=== PATIENT | male | born 1955 | race Caucasian/White ===

== ENCOUNTER 2018-11-11 01:00 | Inpatient (IN) | payer MEDICARE, SELFPAY ==
[2018-11-11] VITALS (44 sets, daily range): BP systolic 82–161; BP diastolic 56–102; PULSE 72–129; RESP 9–30; TEMP 36.5–37.3; O2SAT 92–100; BMI 21.7; BMI 21.4; BMI 21.5
[2018-11-11] MEDS: Ipratropium/Albuterol Sulfate 3 ML AMPUL.NEB INHALATION ×6 (01:10→23:01)
--- NOTE | 2018-11-11 01:15 | EKG12_ITS ---
Test Reason : SOB Blood Pressure : / mmHG Vent. Rate : 118 BPM Atrial Rate : 118 BPM P-R Int : 118 ms QRS Dur : 068 ms QT Int : 310 ms P-R-T Axes : 076 -65 061 degrees QTc Int : 434 ms Sinus tachycardia Left axis deviation Nonspecific ST abnormality Abnormal ECG Confirmed by ELGIN GARCIA, LAW ([id number]), editor greeting card RAYRAY MAO ([id number]) on 11/12/2018 12:51:53 PM Referred By: MILY Confirmed By:LAW EISENBERG MD
--- NOTE | 2018-11-11 01:16 | RAD_ITS ---
STUDY: X-RAY CHEST REASON FOR EXAM: Male, 63 years old. Dyspnea TECHNIQUE: Single AP portable view of the chest. COMPARISON: None. FINDINGS: There is hyperinflation of the lungs consistent with chronic obstructive lung disease (COPD). There is no demonstrated pleural abnormality. Normal size heart. Normal mediastinum and guru. Normal visualized pulmonary arteries. Normal visualized aortic arch and descending thoracic aorta. Normal visualized thoracic spine. Normal visualized ribs, clavicles, and shoulders. There is no demonstrated abnormality of the visualized soft tissue structures of the upper abdomen. RAD/Chest 1 View (Portable) IMPRESSION: There is hyperinflation of the lungs consistent with chronic obstructive lung disease (COPD). Electronically Signed: Lizzy Roy, at 2:45 EDT Tel , Service support ,
[2018-11-11] MEDS: Albuterol 2.5 MG/3 ML VIAL.NEB. INHALATION ×3 (01:20→01:42)
[2018-11-11] MEDS: MethylPREDNISolone 125 MG/2 ML Vial IV (01:26)
[2018-11-11 01:32] LABS: Absolute Lymphocyte Count 0.69 X10^3/ul (0.83-4.51); Absolute Neutrophil Count 8.5 X10^3/uL (2.0-7.7); Basophil# 0.05 X10^3/uL; Basophil% 0.5 % (0-1); Eosinophil# 0.05 X10^3/uL; Eosinophils% 0.5 % (0-5); Hematocrit 49.5 % (40-54); Hemoglobin 16.2 g/dl (13.0-16.5); Lymphocyte # 0.69 X10^3/ul (4.0); Lymphocyte % 6.8 % (19-41); Mean Corp Hgb Conc 32.7 g/gl (32-36); Mean Corpuscular Hgb 31.2 pg (27.0-32.0); Mean Corpuscular Volume 95.2 fL (80-94); Mean Platelet Vol. 9.1 fl (6.2-12.0); Monocyte% 7.9 % (0-10); Neutrophil # 8.52 X10^3/uL (2.7-7.7); Neutrophil % 84.2 % (47-70); POSITIVE COUNT NO; POSITIVE DIFFERENTIAL NO; POSITIVE MORPHOLOGY NO; Platelet Count 220 K/mm3 (150-450); White Blood Count 10.1 K/mm3 (4.4-11.0)
[2018-11-11 01:44] LABS: Anion Gap 3 (5-15); BUN 20 mg/dL (7-18); Calcium,Total 8.4 mg/dL (8.5-10.1); Chloride 106 mmol/L (98-107); Creatinine, Serum 1.11 mg/dL (0.70-1.30); EST Glomerular Filtration Rate 72 mL/min (>60); Est Glom Filt Rate - Afr Amer 87 mL/min (>60); Estimated Creatinine Clearance 71.74 ml/min; Glucose 86 mg/dL (74-106); Potassium 4.5 mmol/L (3.5-5.1); Sodium Level 143 mmol/L (136-145)
[2018-11-11 01:56] LABS: Allen Test POS; Base Excess 3 mmol/L (-2 to +2); Bicarbonate 29.6 mmol/L (22-26); Blood Gas Specimen Type ART; O2 Delivery Device Nasal Can; PO2 101 mmHG (75-100); SITE L Radial; SO2 97 % (95-99); Time Given 145; Total Carbon Dioxide 31 mmol/L; pCO2 57.5 mmHg (35-45); pH 7.32 (7.35-7.45)
--- NOTE | 2018-11-11 02:01 | ED.RN ---
LAB CALLED TO REPORT LACTIC ACID LEVEL OF 2.2. DR. MINOR NOTIFIED.
[2018-11-11 02:02] LABS: Lactic Acid 2.2 mmol/L (0.4-2.0)
--- NOTE | 2018-11-11 03:20 | PCM.HP.STD ---
Problem List (1) Acute hypoxemic respiratory failure Status: Acute (2) Seizure disorder Status: Chronic (3) COPD (chronic obstructive pulmonary disease) Status: Chronic (4) Chronic hypercapnic respiratory failure Status: Chronic History of Present Illness Date of Admission: 11/11/18 Chief Complaint: shortness of breath The patient is a 63 year old M is a significant history of seizure disorder and COPD without home oxygen use who presented to the emergency department with 3-day history of progressively worsening shortness of breath. Associated with his symptoms is dry cough and wheezing. At the emergency department because patient's oxygen saturation was in the 70s; and because of respiratory distress he was placed on BiPAP. Patient was brought to emergency department by the paramedics. Past Medical History Past Medical History (Chronic Problems): Chronic Problems Chronic hypercapnic respiratory failure (Chronic) Hypertension (Chronic) Seizure disorder (Chronic) Hyperlipidemia (Chronic) COPD (chronic obstructive pulmonary disease) (Chronic) Allergies codeine Adverse Reaction (Verified 11/11/18 01:06) Nausea Home Medications: Ambulatory Orders Medication Instructions Recorded Phenytoin Na [Dilantin] 200 mg PO BID 07/24/15 Albuterol Aerosols [Ventolin 2.5 mg INHALATION Q2H PRN PRN #1 07/25/15 Aerosols] box Albuterol Inhaler [Ventolin Hfa 1 - 2 puff INHALATION Q4H PRN PRN 07/25/15 (SP)] #1 inhaler Nebulizer [Lc Star] 1 each UD #1 kit 07/25/15 levoFLOXacin tablet [Levaquin] 750 mg PO DAILY #4 tablet 11/28/16 Fluticasone/Salmeterol [Advair 1 puff INHALATION BID 11/11/18 250/50 Mcg Diskus] Ipratropium/Albuterol Sulfate 3 ml INHALATION [id number] 11/11/18 [Duoneb] Tiotropium [place] [Spiriva 18 MCG] 1 puff INHALATION DAILY 11/11/18 predniSONE tablet 60 mg PO DAILY@0800 11/11/18 Surgical History: - - R sided chest tube placed for history of PTX. Psychiatric History: No pertinent psych hx Smoking Status: Current every day smoker - *Family History Maternal History Items: - - reports a lot of cancer Paternal History Items: - - heart disease Review of Systems Constitutional: Reports: Chills HEENT: Denies: Head Aches, Sinus Congestion, Sinus Drainage Cardiovascular: Denies: Chest Pain Respiratory: Reports: Cough, Shortness of Breath Gastrointestinal: Denies: Abdominal Pain, Nausea, Vomiting Genitourinary: Denies: Dysuria Musculoskeletal: Denies: Joint Pain, Joint Tenderness Skin: Denies: Rash, Wounds Neurological: Denies: Numbness, Tingling, Focal weakness Psychiatric: Denies: Depression, Homicidal Ideations, Suicidal Ideations Hematologic/ Lymphatic: Denies: Easy Bruising, Easy Bleeding VTE Information - Inpt Only VTE Present on Admission: No VTE Mechan Device Prophylaxis: None VTE Pharm Prophylaxis ordered?: Yes Patient Problems: Active and Suspected Problems Acute hypoxemic respiratory failure (Acute) - Physical Exam General: Alert, Oriented x3, Cooperative HEENT: Atraumatic, PERRLA, EOMI, Normocephalic Neck: Supple, No JVD, Negative Carotid Bruits Lungs: Diminished, Tachypneic, Using Accessory Muscles, Wheezes Cardiovascular: Normal S1, Normal S2, No murmurs, Tachycardic Abdomen: Bowel Sounds Present, Soft, Non Tender Extremities: No edema, Capillary Refill Less than 3 Seconds Skin: No rashes, No breakdown, - - Mottled bilateral feet Musculoskeletal: No Tenderness to Palpation of Joints or Extremities Neurological: Neuro grossly intact Psych/Mental Status: Anxious Vital Signs Temp Pulse Resp BP Pulse Ox 99.1 F 104 H 22 H 118/88 H 96 11/11/18 03:15 11/11/18 03:15 11/11/18 03:15 11/11/18 03:15 11/11/18 02:12 Oxygen Flow Rate (L/min) 5 Oxygen Delivery Method Bi-pap Weight: 72.575 kg Body Mass Index (BMI) 21.7 Microbiology Past 72 Hours 11/11/18 01:33 Influenza Types A,B Direct FA (ANTONI) - Final Mucosa - Nasopharyngeal Laboratory Tests Past 24 Hrs 11/11/18 11/11/18 11/11/18 01:15 01:15 01:15 WBC 10.1 RBC 5.20 Hgb 16.2 Hct 49.5 MCV 95.2 H MCH 31.2 MCHC 32.7 RDW 14.0 RDW Differential 48.0 H Plt Count 220 MPV 9.1 Immature Gran % (Auto) 0.100 Neut % (Auto) 84.2 H Lymph % (Auto) 6.8 L Dickens % (Auto) 7.9 Eos % (Auto) 0.5 Baso % (Auto) 0.5 Absolute Neuts (auto) 8.5 H Absolute Lymphs (auto) 0.69 L Total Counted Not Reportable Specimen Type Sample Site pH Bicarbonate Actual POC Total CO2 Base Excess O2 Saturation ABG pCO2 ABG pO2 Chuck Test O2 Delivery Device Liter Flow Blood Gas Notified Whom Blood Gas Notified Time Sodium 143 Potassium 4.5 Chloride 106 Carbon Dioxide 34.0 H Anion Gap 3 L BUN 20 H Creatinine 1.11 Estim Creat Clear Calc 71.74 Est GFR (MDRD) Af Amer 87 Est GFR (MDRD) Non-Af 72 BUN/Creatinine Ratio 18.0 Glucose 86 Lactic Acid 2.2 H Calcium 8.4 L Troponin I 0.069 H 11/11/18 01:48 WBC RBC Hgb Hct MCV MCH MCHC RDW RDW Differential Plt Count MPV Immature Gran % (Auto) Neut % (Auto) Lymph % (Auto) Dickens % (Auto) Eos % (Auto) Baso % (Auto) Absolute Neuts (auto) Absolute Lymphs (auto) Total Counted Specimen Type ART Sample Site L Radial pH 7.32 L Bicarbonate Actual 29.6 H POC Total CO2 31 Base Excess 3 H O2 Saturation 97 ABG pCO2 57.5 H ABG pO2 101 H Chuck Test POS O2 Delivery Device Nasal Can Liter Flow 5.0 Blood Gas Notified Whom ED MD Blood Gas Notified Time 145 Sodium Potassium Chloride Carbon Dioxide Anion Gap BUN Creatinine Estim Creat Clear Calc Est GFR (MDRD) Af Amer Est GFR (MDRD) Non-Af BUN/Creatinine Ratio Glucose Lactic Acid Calcium Troponin I Assessment/Plan All Active Problems Acute hypoxemic respiratory failure (Acute) COPD with acute exacerbation (Acute) The patient is a 63 year old M is a significant history of seizure disorder and COPD without home oxygen use who presented to the emergency department with 3-day history of progressively worsening shortness of breath; cough and wheezing found to be severely hypoxic requiring BiPAP placement at the emergency department. Acute COPD exacerbation Patient was placed on a BiPAP from the ED. We will continue BiPAP and will admit patient to the intensive care unit. Rapid influenza screen was negative. We will get a comprehensive respiratory pathogen panel. Because of the severity of his COPD and because of reported chills we will start patient on azithromycin. Patient meets sepsis criteria with tachycardia and leukopenia. However most probably his symptoms is from COPD exacerbation. Chest x-ray independently reviewed confirms hyperinflation consistent with COPD without any acute cardiopulmonary process. Scheduled DuoNeb and as needed albuterol ordered When off BiPAP can consider Mucinex. Auto Wash Buffer consult. Acute hypoxemic respiratory failure with hypercapnia. Emergency department doctor reported that on presentation his oxygen saturation on room air was in the 70s. And after putting patient on BiPAP his PO2 increased to 101. Also remarkably on BiPAP his PCO2 was 57.5. His bicarbonate on BMP was 34 showing chronic hypercapnia. Elevated troponin: On presentation his troponin was 0.69 Likely due to demand ischemia. Trend troponin. Lactic acidosis Presentation his lactic acid was 2.2 Likely due to hypoxemia from COPD exacerbation Seizure disorder: Dilantin continued DVT Prophylaxis Subcutaneous Lovenox CODE STATUS: Patient is a DNR CCA with no CPR but is okay to do intubation before arrest. Code Visit Inpatient E&M: 97813 Init Hosp L3
--- NOTE | 2018-11-11 03:42 | ED.VISSUMM ---
- ER Visit Summary Date of Service: 11/11/18 Chief Complaint: COPD flare History of Present Illness: The patient is a 63 M smoker with a history of COPD but not on home oxygen presents with several days of upper respiratory symptoms, wheezing, and shortness of breath. No chest pain or lower extremity pain/swelling. No history of DVT or PE. No history of cardiac issues. He states that this feels like his typical COPD exacerbation. His pulse ox was in the 70s on EMS arrival this morning. He initially tried to refuse transport and EMS state on scene giving him breathing treatments and oxygen but he was still requiring oxygen and the paramedics were able to convince him to come here. Physical Examination: He is in severe distress on arrival. He has diffuse wheezing and is using accessory muscles to breathe. He has no clinical evidence of DVT and no lower extremity edema. Neurologic exam is normal. He is somewhat agitated and initially trying to refuse treatment and using profane language with the nursing staff but after he was placed on BiPAP, he became more calm and cooperative. Neurologic exam is normal. No focal or lateralizing findings. Test Results: Lactic acid 2.2. Troponin indeterminate at 0.06 but he has no chest pain at all. No clinical evidence of DVT and really no chest pain, chest tightness and wheezing. He states that this feels like his usual COPD flareup but much worse than his most recent. Emergency Department Course and Treatment: Blood cultures were sent. Chest x-ray negative for infiltrate. He was given aspirin and Solu-Medrol as well as multiple breathing treatments. He was placed on BiPAP. Blood gas was obtained. He was unable to be weaned from the BiPAP but does look much better. Does not appear to require intubation but I do not feel we can wean him at this time. Is no clinical evidence of DVT. He does have an indeterminate troponin but no chest pain and EKG is unremarkable. I considered pulmonary embolism however, he had significant wheezing and infection type symptoms so I think this is much less likely. He will be admitted to the ICU. Treatment Plan: Admit to ICU. Disposition: Full admission Impression: Initial encounter acute COPD exacerbation, initial encounter respiratory failure Critical care time 40 minutes. This note was generated with [employer] dictation software. It may contain incorrect words, spelling, and punctuation that were not noted in review of the chart prior to signing ED Disposition - Plan for ED Patient: Referrals: Tho Steen MD [Primary Care Provider] -
--- NOTE | 2018-11-11 03:46 | ED.RN ---
DR. BOSTON IS NOT ORDERING ATB AT THIS TIME.
--- NOTE | 2018-11-11 03:47 | ED.DCSUM_ITS ---
- ER Visit Summary Date of Service: 11/11/18 Chief Complaint: COPD flare History of Present Illness: The patient is a 63 M smoker with a history of COPD but not on home oxygen presents with several days of upper respiratory symptoms, wheezing, and shortness of breath. No chest pain or lower extremity pain/ swelling. No history of DVT or PE. No history of cardiac issues. He states that this feels like his typical COPD exacerbation. His pulse ox was in the 70s on EMS arrival this morning. He initially tried to refuse transport and EMS state on scene giving him breathing treatments and oxygen but he was still requiring oxygen and the paramedics were able to convince him to come here. Physical Examination: He is in severe distress on arrival. He has diffuse wheezing and is using accessory muscles to breathe. He has no clinical evidence of DVT and no lower extremity edema. Neurologic exam is normal. He is somewhat agitated and initially trying to refuse treatment and using profane language with the nursing staff but after he was placed on BiPAP, he became more calm and cooperative. Neurologic exam is normal. No focal or lateralizing findings. Test Results: Lactic acid 2.2. Troponin indeterminate at 0.06 but he has no chest pain at all. No clinical evidence of DVT and really no chest pain, chest tightness and wheezing. He states that this feels like his usual COPD flareup but much worse than his most recent. Emergency Department Course and Treatment: Blood cultures were sent. Chest x- ray negative for infiltrate. He was given aspirin and Solu-Medrol as well as multiple breathing treatments. He was placed on BiPAP. Blood gas was obtained. He was unable to be weaned from the BiPAP but does look much better. Does not appear to require intubation but I do not feel we can wean him at this time. Is no clinical evidence of DVT. He does have an indeterminate troponin but no chest pain and EKG is unremarkable. I considered pulmonary embolism however, he had significant wheezing and infection type symptoms so I think this is much less likely. He will be admitted to the ICU. Treatment Plan: Admit to ICU. Disposition: Full admission Impression: Initial encounter acute COPD exacerbation, initial encounter respiratory failure Critical care time 40 minutes. This note was generated with [employer] dictation software. It may contain incorrect words, spelling, and punctuation that were not noted in review of the chart prior to signing ED Disposition - Plan for ED Patient: Referrals: Tho Steen MD [Primary Care Provider] -
[2018-11-11] MEDS: Aspirin 81 MG TAB.CHEW 162 MG PO (04:25)
[2018-11-11 05:24] LABS: Reflex Lactate? Y
[2018-11-11] MEDS: 0.9% NaCl Peripheral Flush Adult/Peds IV ×3 (05:53→21:00)
[2018-11-11] MEDS: 0.9% NaCl IVPB Med Flush (250 mL) 15 ML IV (05:53)
[2018-11-11 06:25] LABS: Lactic Acid 1.1 mmol/L (0.4-2.0)
--- NOTE | 2018-11-11 06:43 | PCM.CON.CC ---
Reason for Consult Date of Consultation: 11/11/18 Reason for Consultation: COPD exacerbation History of Present Illness: The patient is a 63-year-old male, with a history as outlined below, who presented to the emergency department on November 11 with complaints of shortness of breath, wheezing and hypoxia. The patient does have an extensive smoking history of approximately 50 pack years, but states that more recently he is only smoking 3-4 cigarettes daily. He states that he is currently utilizing a combination of Combivent, Ventolin and Advair in his home environment. He does report the presence of wheezing along with a cough, but states that he has been unable to expectorate any sputum. The patient does not have a baseline supplemental oxygen requirement. He does report that he recently underwent pulmonary function testing and a walking oximetry study through the [facility]. He does not recall ever having been evaluated by a motor coach chauffeur previously. On presentation to the emergency department, the patient was noted to be afebrile, tachycardic and tachypneic. Laboratory evaluation revealed no evidence of a leukocytosis. Arterial blood gas on 5 L/min revealed a pH of 7.32 with a PCO2 of 57 and PO2 of 101. Chemistry profile was significant for an elevated bicarbonate of 34. Lactate was mildly elevated to 2.2. Initial troponin was increased to 0.069. Plain film chest x-ray revealed hyperinflated lung weinberg without acute cardiopulmonary process. The patient received aerosol treatments along with IV steroids. He was placed on BiPAP therapy and subsequently admitted to the medical intensive care unit for ongoing management. OUTSIDE MEDICAL RECORDS: Pulmonary function testing completed through the [facility], dated November 02, 2018, revealed evidence of a very severe obstructive ventilatory impairment with an FEV1 of 0.57 L, 15% of predicted. The patient did have a partial bronchodilator response. Lung volumes and diffusing capacity were not completed. The patient also completed a walking oximetry study at that time which revealed an oxygen saturation of 92% with ambulation. Past Medical History Past Medical History (Chronic Problems): Chronic Problems Chronic hypercapnic respiratory failure (Chronic) Hypertension (Chronic) Seizure disorder (Chronic) Hyperlipidemia (Chronic) COPD (chronic obstructive pulmonary disease) (Chronic) Allergies codeine Adverse Reaction (Verified 11/11/18 01:06) Nausea Home Medications: Ambulatory Orders Medication Instructions Recorded Phenytoin Na [Dilantin] 200 mg PO BID 07/24/15 Albuterol Aerosols [Ventolin 2.5 mg INHALATION Q2H PRN PRN #1 07/25/15 Aerosols] box Albuterol Inhaler [Ventolin Hfa 1 - 2 puff INHALATION Q4H PRN PRN 07/25/15 (SP)] #1 inhaler Nebulizer [Lc Star] 1 each UD #1 kit 07/25/15 levoFLOXacin tablet [Levaquin] 750 mg PO DAILY #4 tablet 11/28/16 Fluticasone/Salmeterol [Advair 1 puff INHALATION BID 11/11/18 250/50 Mcg Diskus] Ipratropium/Albuterol Sulfate 3 ml INHALATION [id number] 11/11/18 [Duoneb] Tiotropium [place] [Spiriva 18 MCG] 1 puff INHALATION DAILY 11/11/18 predniSONE tablet 60 mg PO DAILY@0800 11/11/18 Surgical History: - - R sided chest tube placed for history of PTX. Psychiatric History: No pertinent psych hx Smoking Status: Current every day smoker - *Family History Maternal History Items: No pertinent history, - - reports a lot o cancer Paternal History Items: No pertinent history, - - heart disease Review of Systems Constitutional: Denies: Night Sweats, Weight Change Eyes: Denies: Blurred vision, Double vision HEENT: Denies: Head Aches, Sinus Congestion, Sinus Drainage Cardiovascular: Reports: Chest Tightness Respiratory: Reports: Cough, Shortness of Breath, Wheezing. Denies: Sputum production Gastrointestinal: Denies: Abdominal Pain, Nausea, Vomiting Genitourinary: Denies: Dysuria Musculoskeletal: Denies: Joint Pain, Joint Tenderness Skin: Denies: Rash, Wounds Neurological: Denies: Numbness, Tingling, Focal weakness Psychiatric: Denies: Anxiety, Depression, Homicidal Ideations, Suicidal Ideations Hematologic/ Lymphatic: Denies: Easy Bruising, Easy Bleeding Patient Problems: Active and Suspected Problems Acute hypoxemic respiratory failure (Acute) Objective: The patient's most recent lab work, culture data and imaging studies have all been personally reviewed. Blood and sputum cultures are pending. Respiratory viral panel is pending. - Physical Exam General: Alert, Oriented x3, Cooperative HEENT: Atraumatic, PERRLA, Normocephalic Oral: Moist Mucosa Neck: Supple, No Nodes, Trachea Midline Lungs: - - Diminished air movement bilaterally with expiratory wheezes. + Prolonged expiratory phase. Mild degree of pursed lip breathing when removed from BiPAP. Cardiovascular: Regular rate, Regular Rhythm, Normal S1, Normal S2, No murmurs Abdomen: Bowel Sounds Present, Soft, Non Tender, Non-Distended Extremities: No clubbing, No cyanosis, No edema Skin: No breakdown Musculoskeletal: No Tenderness to Palpation of Joints or Extremities Lymphatic: No Cervical, Supraclavicular, or Inguinal Adenopathy Neurological: Cranial nerves II-XII grossly intact, Neuro grossly intact Psych/Mental Status: Normal Affect, Appropriate Vital Signs Temp Pulse Resp BP Pulse Ox 37.2 C 84 10 L 86/63 L 97 11/11/18 05:15 11/11/18 06:32 11/11/18 06:32 11/11/18 06:32 11/11/18 06:32 Oxygen Flow Rate (L/min) 5 Oxygen Delivery Method Bi-pap Weight: 158 lb 4.67 oz Body Mass Index (BMI) 21.4 Intake and Output for Last 24 Hours 11/09/18 11/10/18 11/11/18 23:59 23:59 23:59 Intake Total 0 / 0 Output Total 0 / 0 Balance 0 / 0 Microbiology Past 72 Hours 11/11/18 01:33 Influenza Types A,B Direct FA (ANTONI) - Final Mucosa - Nasopharyngeal Laboratory Tests Past 24 Hrs 11/11/18 11/11/18 11/11/18 01:15 01:15 01:15 WBC 10.1 RBC 5.20 Hgb 16.2 Hct 49.5 MCV 95.2 H MCH 31.2 MCHC 32.7 RDW 14.0 RDW Differential 48.0 H Plt Count 220 MPV 9.1 Immature Gran % (Auto) 0.100 Neut % (Auto) 84.2 H Lymph % (Auto) 6.8 L Baker % (Auto) 7.9 Eos % (Auto) 0.5 Baso % (Auto) 0.5 Absolute Neuts (auto) 8.5 H Absolute Lymphs (auto) 0.69 L Total Counted Not Reportable Specimen Type Sample Site pH Bicarbonate Actual POC Total CO2 Base Excess O2 Saturation ABG pCO2 ABG pO2 Chuck Test O2 Delivery Device Liter Flow Blood Gas Notified Whom Blood Gas Notified Time Sodium 143 Potassium 4.5 Chloride 106 Carbon Dioxide 34.0 H Anion Gap 3 L BUN 20 H Creatinine 1.11 Estim Creat Clear Calc 71.74 Est GFR (MDRD) Af Amer 87 Est GFR (MDRD) Non-Af 72 BUN/Creatinine Ratio 18.0 Glucose 86 Lactic Acid 2.2 H Calcium 8.4 L Troponin I 0.069 H 11/11/18 11/11/18 11/11/18 01:48 05:25 05:50 WBC RBC Hgb Hct MCV MCH MCHC RDW RDW Differential Plt Count MPV Immature Gran % (Auto) Neut % (Auto) Lymph % (Auto) Baker % (Auto) Eos % (Auto) Baso % (Auto) Absolute Neuts (auto) Absolute Lymphs (auto) Total Counted Specimen Type ART Sample Site L Radial pH 7.32 L Bicarbonate Actual 29.6 H POC Total CO2 31 Base Excess 3 H O2 Saturation 97 ABG pCO2 57.5 H ABG pO2 101 H Chuck Test POS O2 Delivery Device Nasal Can Liter Flow 5.0 Blood Gas Notified Whom ED MD Blood Gas Notified Time 145 Sodium Potassium Chloride Carbon Dioxide Anion Gap BUN Creatinine Estim Creat Clear Calc Est GFR (MDRD) Af Amer Est GFR (MDRD) Non-Af BUN/Creatinine Ratio Glucose Lactic Acid 1.1 Calcium Troponin I 0.092 H Clinical Impression(s) from Imaging Studies Chest X-Ray 11/11/18 01:16 IMPRESSION: There is hyperinflation of the lungs consistent with chronic obstructive lung disease (COPD). Electronically Signed: Lizzy Roy, at 2:45 EDT Tel , Service support , Assessment/Plan Active and Suspected Problems Acute hypoxemic respiratory failure (Acute) RECOMMENDATIONS: 1. Continue scheduled bronchodilators and IV steroids for now. 2. Okay to continue antibiotics, pending sputum culture results. 3. Wean supplemental oxygen as tolerated. 4. Encourage incentive spirometer use and mobilize patient as tolerated. 5. Nicotine replacement therapy can be offered while the patient is admitted to the hospital. 6. Perform walking oximetry study prior to consideration for discharge. 7. Recommend outpatient pulmonary follow-up for further optimization of his underlying inhaler regimen. IMPRESSIONS: 1. Acute hypoxemic respiratory failure secondary to end-stage COPD with exacerbation The patient presented to the hospital with hypoxemia and shortness of breath. Plain film chest imaging did not reveal evidence of an acute infiltrative process. The patient's pulmonary function studies from earlier this month reveal evidence of end-stage COPD, which is clearly suboptimally controlled in his home environment. In addition, the patient continues to smoke cigarettes daily. At this time, agree with obtaining a respiratory viral panel and sending sputum for culture. He may have an underlying viral infection versus that of tracheal bronchitis. Continue scheduled bronchodilators along with IV steroids. Wean supplemental oxygen as tolerated. BiPAP can be utilized, if clinically needed. The patient ideally needs to be on a triple therapy inhaler regimen as an outpatient. I would strongly recommend outpatient pulmonary follow-up for further optimization of his baseline medication regimen. 2. Troponin elevation Most likely secondary to demand ischemia in the setting of #1. We will plan to obtain an echocardiogram accordingly. 3. Chronic tobacco dependency The patient does report a 50+ pack year smoking history and continues to smoke cigarettes daily. Nicotine replacement therapy can be utilized while the patient is admitted to the hospital. In addition, given the patient's age and smoking history, would recommend yearly low-dose CT scan of chest. 4. Unspecified seizure disorder/hypertension/hyperlipidemia Complicates care, management, recovery and prognosis. Likely okay to continue home medications. Physical therapy evaluation is pending, as well as nutrition consultation. This note was generated with [employer] dictation software. It may contain incorrect words, spelling, and punctuation that were not noted in checking the note before signing. Code Visit Inpatient E&M: 94532 Init Hosp L3
--- NOTE | 2018-11-11 06:47 | ECHOD_ITS ---
Reason For Study: SYSPNEA/SOB Procedure This was a 2D Doppler, Color Flow transthoracic echocardiogram. The study was technically difficult. Exam performed portable in ICU/CCU. Left Ventricle Normal LV size. Left ventricular systolic function is normal. The estimated ejection fraction is 55 %. No evidence for diastolic dysfunction. No regional wall motion abnormalities noted. Right Ventricle Normal RV size. Normal systolic function. Atria Normal left atrium. Normal right atrium. No doppler evidence for ASD. Mitral Valve There is no mitral annular calcification. Normal mitral valve. Trivial mitral valve insufficiency. Tricuspid Valve Normal tricuspid valve. Trivial tricuspid valve insufficiency. Right ventricular systolic pressure estimated to be 27 mmHg. Aortic Valve Trisinus/trileaflet aortic valve. Normal aortic valve. Pulmonic Valve The pulmonic valve is not well visualized. Great Vessels Normal sized aortic root. Pericardium/Pleural No pericardial effusion. MMode/2D Measurements & Calculations LVIDd: 4.3 cm IVSd: 0.83 cm Ao root diam: 3.3 cm LVIDs: 2.5 cm LVPWd: 0.80 cm RVDd: 2.9 cm FS: 43.6 % LAV(MOD-bp): 21.6 ml LA A4 area: 10.5 cm2 LA dimension(2D): 3.1 cm LAV(MOD-bp) Indexed: 11.2 ml/m2 LAV(MOD-sp2): 20.4 ml LAV(MOD-sp4): 23.4 ml RA A4 area: 10.1 cm2 Doppler Measurements & Calculations MV E max martin: 48.9 cm/sec Lat Peak E' Martin: 7.8 cm/sec Med Peak E' Martin: 8.5 cm/sec MV A max martin: 61.0 cm/sec E/E' lat: 6.2 E/E' med: 5.7 MV E/A: 0.80 Ao V2 max: 99.1 cm/sec LV V1 max: 92.2 cm/sec PA V2 max: 88.2 cm/sec Ao max P.9 mmHg LV V1 max P.4 mmHg TR max martin: 244.8 cm/sec TR max P.0 mmHg Interpretation Summary The study was technically difficult. Left ventricular systolic function is normal. The estimated ejection fraction is 55 %. Trivial mitral valve insufficiency. Trivial tricuspid valve insufficiency. Right ventricular systolic pressure estimated to be 27 mmHg. No evidence for diastolic dysfunction. Ordering Physician: Carlos Maxwell D.O. Referring Physician: Tho Steen Performed By: Vickie Diaz RDCS, RVT
--- NOTE | 2018-11-11 06:47 | CON.PCM_ITS ---
Reason for Consult Date of Consultation: 11/11/18 Reason for Consultation: COPD exacerbation History of Present Illness: The patient is a 63-year-old male, with a history as outlined below, who presented to the emergency department on November 11 with complaints of shortness of breath, wheezing and hypoxia. The patient does have an extensive smoking history of approximately 50 pack years, but states that more recently he is only smoking 3-4 cigarettes daily. He states that he is currently utilizing a combination of Combivent, Ventolin and Advair in his home environment. He does report the presence of wheezing along with a cough, but states that he has been unable to expectorate any sputum. The patient does not have a baseline supplemental oxygen requirement. He does report that he recently underwent pulmonary function testing and a walking oximetry study through the [facility]. He does not recall ever having been evaluated by a helpdesk administrator previously. On presentation to the emergency department, the patient was noted to be afebrile, tachycardic and tachypneic. Laboratory evaluation revealed no evidence of a leukocytosis. Arterial blood gas on 5 L/min revealed a pH of 7.32 with a PCO2 of 57 and PO2 of 101. Chemistry profile was significant for an elevated bicarbonate of 34. Lactate was mildly elevated to 2.2. Initial troponin was increased to 0.069. Plain film chest x-ray revealed hyperinflated lung weinberg without acute cardiopulmonary process. The patient received aerosol treatments along with IV steroids. He was placed on BiPAP therapy and subsequently admitted to the medical intensive care unit for ongoing management. OUTSIDE MEDICAL RECORDS: Pulmonary function testing completed through the [facility], dated November 02, 2018, revealed evidence of a very severe obstructive ventilatory impairment with an FEV1 of 0.57 L, 15% of predicted. The patient did have a partial bronchodilator response. Lung volumes and diffusing capacity were not completed. The patient also completed a walking oximetry study at that time which revealed an oxygen saturation of 92% with ambulation. Past Medical History Past Medical History (Chronic Problems): Chronic Problems Chronic hypercapnic respiratory failure (Chronic) Hypertension (Chronic) Seizure disorder (Chronic) Hyperlipidemia (Chronic) COPD (chronic obstructive pulmonary disease) (Chronic) Allergies codeine Adverse Reaction (Verified 11/11/18 01:06) Nausea Home Medications: Ambulatory Orders Medication Instructions Recorded Phenytoin Na [Dilantin] 200 mg PO BID 07/24/15 Albuterol Aerosols [Ventolin 2.5 mg INHALATION Q2H PRN PRN #1 07/25/15 Aerosols] box Albuterol Inhaler [Ventolin Hfa 1 - 2 puff INHALATION Q4H PRN PRN 07/25/15 (SP)] #1 inhaler Nebulizer [Lc Star] 1 each UD #1 kit 07/25/15 levoFLOXacin tablet [Levaquin] 750 mg PO DAILY #4 tablet 11/28/16 Fluticasone/Salmeterol [Advair 1 puff INHALATION BID 11/11/18 250/50 Mcg Diskus] Ipratropium/Albuterol Sulfate 3 ml INHALATION [id number] 11/11/18 [Duoneb] Tiotropium [place] [Spiriva 18 MCG] 1 puff INHALATION DAILY 11/11/18 predniSONE tablet 60 mg PO DAILY@0800 11/11/18 Surgical History: - - R sided chest tube placed for history of PTX. Psychiatric History: No pertinent psych hx Smoking Status: Current every day smoker - *Family History Maternal History Items: No pertinent history, - - reports a lot o cancer Paternal History Items: No pertinent history, - - heart disease Review of Systems Constitutional: Denies: Night Sweats, Weight Change Eyes: Denies: Blurred vision, Double vision HEENT: Denies: Head Aches, Sinus Congestion, Sinus Drainage Cardiovascular: Reports: Chest Tightness Respiratory: Reports: Cough, Shortness of Breath, Wheezing. Denies: Sputum production Gastrointestinal: Denies: Abdominal Pain, Nausea, Vomiting Genitourinary: Denies: Dysuria Musculoskeletal: Denies: Joint Pain, Joint Tenderness Skin: Denies: Rash, Wounds Neurological: Denies: Numbness, Tingling, Focal weakness Psychiatric: Denies: Anxiety, Depression, Homicidal Ideations, Suicidal Ideatio ns Hematologic/ Lymphatic: Denies: Easy Bruising, Easy Bleeding Patient Problems: Active and Suspected Problems Acute hypoxemic respiratory failure (Acute) Objective: The patient's most recent lab work, culture data and imaging studies have all been personally reviewed. Blood and sputum cultures are pending. Respiratory viral panel is pending. - Physical Exam General: Alert, Oriented x3, Cooperative HEENT: Atraumatic, PERRLA, Normocephalic Oral: Moist Mucosa Neck: Supple, No Nodes, Trachea Midline Lungs: - - Diminished air movement bilaterally with expiratory wheezes. + P rolonged expiratory phase. Mild degree of pursed lip breathing when removed from BiPAP. Cardiovascular: Regular rate, Regular Rhythm, Normal S1, Normal S2, No murmurs Abdomen: Bowel Sounds Present, Soft, Non Tender, Non-Distended Extremities: No clubbing, No cyanosis, No edema Skin: No breakdown Musculoskeletal: No Tenderness to Palpation of Joints or Extremities Lymphatic: No Cervical, Supraclavicular, or Inguinal Adenopathy Neurological: Cranial nerves II-XII grossly intact, Neuro grossly intact Psych/Mental Status: Normal Affect, Appropriate Vital Signs Temp Pulse Resp BP Pulse Ox 37.2 C 84 10 L 86/63 L 97 11/11/18 05:15 11/11/18 06:32 11/11/18 06:32 11/11/18 06:32 11/11/18 06:32 Oxygen Flow Rate (L/min) 5 Oxygen Delivery Method Bi-pap Weight: 158 lb 4.67 oz Body Mass Index (BMI) 21.4 Intake and Output for Last 24 Hours 11/09/18 11/10/18 11/11/18 23:59 23:59 23:59 Intake Total 0 / 0 Output Total 0 / 0 Balance 0 / 0 Microbiology Past 72 Hours 11/11/18 01:33 Influenza Types A,B Direct FA (ANTONI) - Final Mucosa - Nasopharyngeal Laboratory Tests Past 24 Hrs 11/11/18 11/11/18 11/11/18 01:15 01:15 01:15 WBC 10.1 RBC 5.20 Hgb 16.2 Hct 49.5 MCV 95.2 H MCH 31.2 MCHC 32.7 RDW 14.0 RDW Differential 48.0 H Plt Count 220 MPV 9.1 Immature Gran % (Auto) 0.100 Neut % (Auto) 84.2 H Lymph % (Auto) 6.8 L [place] % (Auto) 7.9 Eos % (Auto) 0.5 Baso % (Auto) 0.5 Absolute Neuts (auto) 8.5 H Absolute Lymphs (auto) 0.69 L Total Counted Not Reportable Specimen Type Sample Site pH Bicarbonate Actual POC Total CO2 Base Excess O2 Saturation ABG pCO2 ABG pO2 Chuck Test O2 Delivery Device Liter Flow Blood Gas Notified Whom Blood Gas Notified Time Sodium 143 Potassium 4.5 Chloride 106 Carbon Dioxide 34.0 H Anion Gap 3 L BUN 20 H Creatinine 1.11 Estim Creat Clear Calc 71.74 Est GFR (MDRD) Af Amer 87 Est GFR (MDRD) Non-Af 72 BUN/Creatinine Ratio 18.0 Glucose 86 Lactic Acid 2.2 H Calcium 8.4 L Troponin I 0.069 H 11/11/18 11/11/18 11/11/18 01:48 05:25 05:50 WBC RBC Hgb Hct MCV MCH MCHC RDW RDW Differential Plt Count MPV Immature Gran % (Auto) Neut % (Auto) Lymph % (Auto) [place] % (Auto) Eos % (Auto) Baso % (Auto) Absolute Neuts (auto) Absolute Lymphs (auto) Total Counted Specimen Type ART Sample Site L Radial pH 7.32 L Bicarbonate Actual 29.6 H POC Total CO2 31 Base Excess 3 H O2 Saturation 97 ABG pCO2 57.5 H ABG pO2 101 H Chuck Test POS O2 Delivery Device Nasal Can Liter Flow 5.0 Blood Gas Notified Whom ED Blood Gas Notified Time 145 Sodium Potassium Chloride Carbon Dioxide Anion Gap BUN Creatinine Estim Creat Clear Calc Est GFR (MDRD) Af Amer Est GFR (MDRD) Non-Af BUN/Creatinine Ratio Glucose Lactic Acid 1.1 Calcium Troponin I 0.092 H Clinical Impression(s) from Imaging Studies Chest X-Ray 11/11/18 01:16 IMPRESSION: There is hyperinflation of the lungs consistent with chronic obstructive lung disease (COPD). Electronically Signed: Lizzy Roy, at 2:45 EDT Tel , Service support , Assessment/Plan Active and Suspected Problems Acute hypoxemic respiratory failure (Acute) RECOMMENDATIONS: 1. Continue scheduled bronchodilators and IV steroids for now. 2. Okay to continue antibiotics, pending sputum culture results. 3. Wean supplemental oxygen as tolerated. 4. Encourage incentive spirometer use and mobilize patient as tolerated. 5. Nicotine replacement therapy can be offered while the patient is admitted to the hospital. 6. Perform walking oximetry study prior to consideration for discharge. 7. Recommend outpatient pulmonary follow-up for further optimization of his underlying inhaler regimen. IMPRESSIONS: 1. Acute hypoxemic respiratory failure secondary to end-stage COPD with exacerbation The patient presented to the hospital with hypoxemia and shortness of breath. Plain film chest imaging did not reveal evidence of an acute infiltrative process. The patient's pulmonary function studies from earlier this month reveal evidence of end-stage COPD, which is clearly suboptimally controlled in his home environment. In addition, the patient continues to smoke cigarettes daily. At this time, agree with obtaining a respiratory viral panel and sending sputum for culture. He may have an underlying viral infection versus that of tracheal bronchitis. Continue scheduled bronchodilators along with IV steroids. Wean supplemental oxygen as tolerated. BiPAP can be utilized, if clinically needed. The patient ideally needs to be on a triple therapy inhaler regimen as an outpatient. I would strongly recommend outpatient pulmonary follow-up for further optimization of his baseline medication regimen. 2. Troponin elevation Most likely secondary to demand ischemia in the setting of #1. We will plan to obtain an echocardiogram accordingly. 3. Chronic tobacco dependency The patient does report a 50+ pack year smoking history and continues to smoke cigarettes daily. Nicotine replacement therapy can be utilized while the patient is admitted to the hospital. In addition, given the patient's age and smoking history, would recommend yearly low-dose CT scan of chest. 4. Unspecified seizure disorder/hypertension/hyperlipidemia Complicates care, management, recovery and prognosis. Likely okay to continue home medications. Physical therapy evaluation is pending, as well as nutrition consultation. This note was generated with [employer] dictation software. It may contain incorrect words, spelling, and punctuation that were not noted in checking the note before signing. Code Visit Inpatient E&M: 44013 Init Hosp L3
[2018-11-11] MEDS: Phenytoin Na 100 MG Capsule 200 MG PO ×2 (07:43→17:50)
[2018-11-11] MEDS: Enoxaparin 40 MG/0.4 ML Syringe SC (07:45)
--- NOTE | 2018-11-11 09:56 | CASEMGMT ---
RN CM Assessment Presentation: COPD exacerbation. Intro role of CM and purpose of RN CM assessment to patient and his son Adalberto. Demographics, PCP and Pharmacy verified. PCP: Dr. Steen Specialists: Dr. Salcido @ [facility]. (per staff, pt has seen Krystle Vidales [facility] with Dr. Salcido) [facility] Insurance: [employer] M[employer] PPO Prescription Benefit: yes LNOK: Sons: Cleve Aleman and Adalberto Watkins Living Arrangements: Lives with son pa in mobile home. 4 steps into home, then one floor. Pt states he has been feeling weak, short of breath but was able to independently complete ADL's. Discussed home health with patient for continued post discharge care. pt is agreeable and does not have preference for agency. Transportation: drives or family support DME: none at home. Anticipate pt may need Home oxygen. Will need to go through [facility] or [facility] as pt has [employer] PPO. Verified with [facility] that they are now a [employer] P[employer] provider for DME. HHC: [facility]: called to Marlena to make referral for PEARL MICHAEL on dc. PT/OT evals pending-will need to review recommendations. Will need order placed when services needed are determined. Patient DC goals: Home DC PLAN: anticipate home with [facility]. PT/OT evaluations pending, will need home oxygen testing. Jacob ASHTON RN ACM
[2018-11-11 11:07] LABS: Magnesium 2.3 mg/dL (1.6-2.6)
--- NOTE | 2018-11-11 16:31 | PCM.PN.HOSP ---
Patient Problems: Active and Suspected Problems Acute hypoxemic respiratory failure (Acute) Subjective: Patient notably improved since initial presentation, off BIPAP, breathing with greater ease, wheezing has lessened and not coughing is markedly. He still does perform pursed lip breathing which he notes is chronic. Records reviewed with Dr. Maxwell and he definitely is end-stage COPD. He is not been following with pulmonary medicine but discussed this with patient and he is amenable to continue evaluation outpatient with Dr. Maxwell and Dr. Saleem. Patient denies fevers, chills, nausea, emesis, abdominal pain, chest pain or worsened dyspnea. Objective: Physical Examination: General: awake, alert, oriented x 3 and cooperative, seated upright in the ICU bed, improved appearance, currently off BiPAP, no evident respiratory distress, ongoing mild pursed lip breathing which is chronic for patient. Skin: normal color, turgor, no icterus, cyanosis. HEENT: AT/NC, EOMI, PERRLA, only dry MM, ongoing mild pursed lip breathing which is chronic for patient. Lungs: Few slight diminished breath sounds, greater bilateral bases, occasional end expiratory wheezing still present, not using accessory muscles and no longer evidence of acute respiratory distress, off BiPAP, purse lip breathing which is common for patient. Heart: Regular rate and rhythm; no gallop, rub audible. Abdomen: soft, thin cachectic habitus, NTTP, ND, normal BS. Extremities: no cyanosis, clubbing, or edema. Neurological: patient awake, alert, oriented x 3; cognitive function intact; pupils equally reactive to light and accomodation; cranial nerves II-XII grossly normal, moving all 4 extremities, no focal deficits, strength severely globally decreased secondary to acute presentation. Psychiatric: affect appears normal, no acute evidence of depressive or anxiety feelings. Vitals/I&O's: Vital Signs Temp Pulse Resp BP Pulse Ox 98.2 F 80 18 102/68 94 11/11/18 14:00 11/11/18 15:50 11/11/18 15:50 11/11/18 14:00 11/11/18 15:50 Oxygen Flow Rate (L/min) 3 Oxygen Delivery Method Nasal Cannula Weight: 158 lb 4.67 oz Body Mass Index (BMI) 21.4 Intake and Output for Last 24 Hours 11/09/18 11/10/18 11/11/18 23:59 23:59 23:59 Intake Total 420 / 420 Output Total 480 / 480 Balance -60 / -60 Microbiology Past 72 Hours 11/11/18 07:05 Sputum, Expectorated/Coughed Gram Stain - Final 11/11/18 01:33 Mucosa - Nasopharyngeal Respiratory Panel (PCR) - Final 11/11/18 01:33 Mucosa - Nasopharyngeal Influenza Types A,B Direct FA (ANTONI) - Final Laboratory Results 11/11/18 01:15: WBC 10.1, RBC 5.20, Hgb 16.2, Hct 49.5, MCV 95.2 H, MCH 31.2, MCHC 32.7, RDW 14.0, RDW Differential 48.0 H, Plt Count 220, MPV 9.1, Immature Gran % (Auto) 0.100, Neut % (Auto) 84.2 H, Lymph % (Auto) 6.8 L, [place] % (Auto) 7.9, Eos % (Auto) 0.5, Baso % (Auto) 0.5, Absolute Neuts (auto) 8.5 H, Absolute Lymphs (auto) 0.69 L, Total Counted Not Reportable 11/11/18 01:15: Sodium 143, Potassium 4.5, Chloride 106, Carbon Dioxide 34.0 H, Anion Gap 3 L, BUN 20 H, Creatinine 1.11, Estim Creat Clear Calc 71.74, Est GFR (MDRD) Af Amer 87, Est GFR (MDRD) Non-Af 72, BUN/Creatinine Ratio 18.0, Glucose 86, Calcium 8.4 L, Troponin I 0.069 H 11/11/18 01:15: Lactic Acid 2.2 H 11/11/18 01:48: Specimen Type ART, Sample Site L Radial, pH 7.32 L, Bicarbonate Actual 29.6 H, POC Total CO2 31, Base Excess 3 H, O2 Saturation 97, ABG pCO2 57.5 H, ABG pO2 101 H, Chuck Test POS, O2 Delivery Device Nasal Can, Liter Flow 5.0, Blood Gas Notified Whom ED , Blood Gas Notified Time 145 11/11/18 05:25: Troponin I 0.092 H 11/11/18 05:50: Lactic Acid 1.1 11/11/18 07:50: Troponin I 0.068 H 11/11/18 07:50: Magnesium 2.3 Current Medications Acetaminophen (Tylenol) 650 mg PO Q6H PRN PRN PRN Reason: Non-cardiac pain (mod-severe) Albuterol Sulfate (Ventolin Aerosols) 2.5 mg INHALATION Q2H PRN PRN PRN Reason: SHORTNESS OF BREATH Albuterol/Ipratropium (Duoneb) 3 ml INHALATION Q4H.RT [facility] Last Admin: 11/11/18 15:49 Dose: 3 ml Aspirin (Aspirin, Baby) 81 mg PO DAILY@0800 [facility] Enoxaparin Sodium (Lovenox) 40 mg SC DAILY@1000 [facility] Last Admin: 11/11/18 07:45 Dose: 40 mg Azithromycin 500 mg/ Dextrose 255 mls @ 250 mls/hr IV Q24@2200 [facility] Stop: 11/12/18 23:02 Last Admin: 11/11/18 05:53 Dose: 250 mls/hr Sodium Chloride () 250 mls @ 15 mls/hr IV .[id number] PRN PRN Reason: SALINE FLUSH Last Admin: 11/11/18 05:53 Dose: 15 mls/hr Magnesium Hydroxide (Milk Of Magnesia) 30 ml PO DAILY PRN PRN PRN Reason: Constipation Methylprednisolone (Solu-Medrol) 40 mg IV Q8 [facility] Last Admin: 11/11/18 13:29 Dose: 40 mg Ondansetron HCl (Zofran) 4 mg IV Q8H PRN PRN PRN Reason: Nausea Phenytoin Sodium (Dilantin) 200 mg PO BIDCM [facility] Last Admin: 11/11/18 07:43 Dose: 200 mg Sodium Chloride () 5 - 15 ml IV UD PRN PRN Reason: SALINE FLUSH Last Admin: 11/11/18 05:53 Dose: 10 ml Medical Necessity - Tobacco Use Smoking Status: Current every day smoker Assessment/Plan All Active Problems Acute hypoxemic respiratory failure (Acute) COPD with acute exacerbation (Acute) The patient is a 63 y/o M w/ PMHx: Severe End Stage Chronic COPD w/ Chronic Hypoxic Respiratory Failure previously on supplemental oxygen although has no longer been on this recently, HTN, HLD, Seizure disorder, Ongoing Tobacco use who presents to the [facility] ED on 11/11/18 with history of severe progressively worsening dyspnea, dry cough, wheezing, worse with any exertional effort times 3 days. (1) Acute Hypoxic and Hypercarbic Respiratory Failure on Chronic secondary to Acute on chronic COPD exacerbation: ED presentation with patient noted to be afebrile, tachycardic, tachypnea, increased work of breathing with accessory muscle usage, ABG with pH 7.32, PCO2 57, PO2 101 with aggressive supplementation at that time, CMP with elevated bicarb 34, lactic acid 2.2 with correction following, troponin indeterminate 0.069 with EKG with no acute evidence of ischemia, chest x-ray with chronic changes with no acute cardia pulmonary process. Patient admitted initially to the ICU, maintained on BiPAP with transition to oxygen supplementation once improved, continue ATC duonebs, PRN albuterol, IV methylprednisolone, HOB, IS parameters, IV Azithromycin continued, respiratory viral panel unremarkable, blood culture x2 pending per ED. Given patient clinical improvement will transition to BiPAP nightly only as patient noted significantly feeling improved with this in place with transition to the PCU. (2) Indeterminate cardiac enzyme: Likely secondary to demand ischemia secondary to acute presentation #1. Maintained on a monitored bed to assure no acute myocardial infarction with serial cardiac enzymes and EKGs. Enzyme trending w/ 0.069->0.092->0.068, no specific chest pain complaint, EKGs with no acute evidence of ischemia, echocardiogram obtained with normal LV systolic function, EF 55%, trivial MDI, trivial TBI, RVSP 27 mmHg with no evidence for diastolic dysfunction. ASA. (3) Tobacco Abuse: Encouraged cessation, inpatient consultation per RT, NR if desired. (4) Seizure disorder: Continue home Dilantin regimen. (5) Hypertension: Patient with noted history, BP since initial presentation is markedly improved in normal range, will defer any regimen addition, PRN IV hydralazine. (6) Hyperlipidemia: Not on regimen, defer to outpatient setting. (7) Severe protein-calorie malnutrition: Evidenced per habitus, muscle and fat loss evident, nutrition consulted. (8) DVT Prophylaxis: SCDs, lovenox. Code Visit Procedures: Other Procedure - See Report - Admitted after midnight, billing code:[id number]
--- NOTE | 2018-11-11 16:41 | PN_ITS ---
Patient Problems: Active and Suspected Problems Acute hypoxemic respiratory failure (Acute) Subjective: Patient notably improved since initial presentation, off BIPAP, breathing with greater ease, wheezing has lessened and not coughing is markedly. He still does perform pursed lip breathing which he notes is chronic. Records reviewed with Dr. Maxwell and he definitely is end-stage COPD. He is not been following with pulmonary medicine but discussed this with patient and he is amenable to continue evaluation outpatient with Dr. Maxwell and Dr. Saleem. Patient denies fevers, chills, nausea, emesis, abdominal pain, chest pain or worsened dyspnea. Objective: Physical Examination: General: awake, alert, oriented x 3 and cooperative, seated upright in the ICU bed, improved appearance, currently off BiPAP, no evident respiratory distress, ongoing mild pursed lip breathing which is chronic for patient. Skin: normal color, turgor, no icterus, cyanosis. HEENT: AT/NC, EOMI, PERRLA, only dry MM, ongoing mild pursed lip breathing which is chronic for patient. Lungs: Few slight diminished breath sounds, greater bilateral bases, occasional end expiratory wheezing still present, not using accessory muscles and no longer evidence of acute respiratory distress, off BiPAP, purse lip breathing which is common for patient. Heart: Regular rate and rhythm; no gallop, rub audible. Abdomen: soft, thin cachectic habitus, NTTP, ND, normal BS. Extremities: no cyanosis, clubbing, or edema. Neurological: patient awake, alert, oriented x 3; cognitive function intact; pupils equally reactive to light and accomodation; cranial nerves II-XII grossly normal, moving all 4 extremities, no focal deficits, strength severely globally decreased secondary to acute presentation. Psychiatric: affect appears normal, no acute evidence of depressive or anxiety feelings. Vitals/I&O's: Vital Signs Temp Pulse Resp BP Pulse Ox 98.2 F 80 18 102/68 94 11/11/18 14:00 11/11/18 15:50 11/11/18 15:50 11/11/18 14:00 11/11/18 15:50 Oxygen Flow Rate (L/min) 3 Oxygen Delivery Method Nasal Cannula Weight: 158 lb 4.67 oz Body Mass Index (BMI) 21.4 Intake and Output for Last 24 Hours 11/09/18 11/10/18 11/11/18 23:59 23:59 23:59 Intake Total 420 / 420 Output Total 480 / 480 Balance -60 / -60 Microbiology Past 72 Hours 11/11/18 07:05 Sputum, Expectorated/Coughed Gram Stain - Final 11/11/18 01:33 Mucosa - Nasopharyngeal Respiratory Panel (PCR) - Final 11/11/18 01:33 Mucosa - Nasopharyngeal Influenza Types A,B Direct FA (ANTONI) - Final Laboratory Results 11/11/18 01:15: WBC 10.1, RBC 5.20, Hgb 16.2, Hct 49.5, MCV 95.2 H, MCH 31.2, MCHC 32.7, RDW 14.0, RDW Differential 48.0 H, Plt Count 220, MPV 9.1, Immature Gran % (Auto) 0.100, Neut % (Auto) 84.2 H, Lymph % (Auto) 6.8 L, [place] % (Auto) 7.9, Eos % (Auto) 0.5, Baso % (Auto) 0.5, Absolute Neuts (auto) 8.5 H, Absolute Lymphs (auto) 0.69 L, Total Counted Not Reportable 11/11/18 01:15: Sodium 143, Potassium 4.5, Chloride 106, Carbon Dioxide 34.0 H, Anion Gap 3 L, BUN 20 H, Creatinine 1.11, Estim Creat Clear Calc 71.74, Est GFR (MDRD) Af Amer 87, Est GFR (MDRD) Non-Af 72, BUN/Creatinine Ratio 18.0, Glucose 86, Calcium 8.4 L, Troponin I 0.069 H 11/11/18 01:15: Lactic Acid 2.2 H 11/11/18 01:48: Specimen Type ART, Sample Site L Radial, pH 7.32 L, Bicarbonate Actual 29.6 H, POC Total CO2 31, Base Excess 3 H, O2 Saturation 97, ABG pCO2 57.5 H, ABG pO2 101 H, Chuck Test POS, O2 Delivery Device Nasal Can, Liter Flow 5.0, Blood Gas Notified Whom ED , Blood Gas Notified Time 145 11/11/18 05:25: Troponin I 0.092 H 11/11/18 05:50: Lactic Acid 1.1 11/11/18 07:50: Troponin I 0.068 H 11/11/18 07:50: Magnesium 2.3 Current Medications Acetaminophen (Tylenol) 650 mg PO Q6H PRN PRN PRN Reason: Non-cardiac pain (mod-severe) Albuterol Sulfate (Ventolin Aerosols) 2.5 mg INHALATION Q2H PRN PRN PRN Reason: SHORTNESS OF BREATH Albuterol/Ipratropium (Duoneb) 3 ml INHALATION Q4H.RT [facility] Last Admin: 11/11/18 15:49 Dose: 3 ml Aspirin (Aspirin, Baby) 81 mg PO DAILY@0800 [facility] Enoxaparin Sodium (Lovenox) 40 mg SC DAILY@1000 [facility] Last Admin: 11/11/18 07:45 Dose: 40 mg Azithromycin 500 mg/ Dextrose 255 mls @ 250 mls/hr IV Q24@2200 [facility] Stop: 11/12/18 23:02 Last Admin: 11/11/18 05:53 Dose: 250 mls/hr Sodium Chloride () 250 mls @ 15 mls/hr IV .[id number] PRN PRN Reason: SALINE FLUSH Last Admin: 11/11/18 05:53 Dose: 15 mls/hr Magnesium Hydroxide (Milk Of Magnesia) 30 ml PO DAILY PRN PRN PRN Reason: Constipation Methylprednisolone (Solu-Medrol) 40 mg IV Q8 [facility] Last Admin: 11/11/18 13:29 Dose: 40 mg Ondansetron HCl (Zofran) 4 mg IV Q8H PRN PRN PRN Reason: Nausea Phenytoin Sodium (Dilantin) 200 mg PO BIDCM [facility] Last Admin: 11/11/18 07:43 Dose: 200 mg Sodium Chloride () 5 - 15 ml IV UD PRN PRN Reason: SALINE FLUSH Last Admin: 11/11/18 05:53 Dose: 10 ml Medical Necessity - Tobacco Use Smoking Status: Current every day smoker Assessment/Plan All Active Problems Acute hypoxemic respiratory failure (Acute) COPD with acute exacerbation (Acute) The patient is a 63 y/o M w/ PMHx: Severe End Stage Chronic COPD w/ Chronic Hypoxic Respiratory Failure previously on supplemental oxygen although has no longer been on this recently, HTN, HLD, Seizure disorder, Ongoing Tobacco use who presents to the [facility] ED on 11/11/18 with history of severe progressively worsening dyspnea, dry cough, wheezing, worse with any exertional effort times 3 days. (1) Acute Hypoxic and Hypercarbic Respiratory Failure on Chronic secondary to Acute on chronic COPD exacerbation: ED presentation with patient noted to be afebrile, tachycardic, tachypnea, increased work of breathing with accessory muscle usage, ABG with pH 7.32, PCO2 57, PO2 101 with aggressive supplementation at that time, CMP with elevated bicarb 34, lactic acid 2.2 with correction following, troponin indeterminate 0.069 with EKG with no acute evidence of ischemia, chest x-ray with chronic changes with no acute cardia pulmonary proc ess. Patient admitted initially to the ICU, maintained on BiPAP with transition to oxygen supplementation once improved, continue ATC duonebs, PRN albuterol, IV methylprednisolone, HOB, IS parameters, IV Azithromycin continued, respiratory viral panel unremarkable, blood culture x2 pending per ED. Given patient clinical improvement will transition to BiPAP nightly only as patient noted significantly feeling improved with this in place with transition to the PCU. (2) Indeterminate cardiac enzyme: Likely secondary to demand ischemia secondary to acute presentation #1. Maintained on a monitored bed to assure no acute myocardial infarction with serial cardiac enzymes and EKGs. Enzyme trending w/ 0.069->0.092->0.068, no specific chest pain complaint, EKGs with no acute evidence of ischemia, echocardiogram obtained with normal LV systolic function, EF 55%, trivial MDI, trivial TBI, RVSP 27 mmHg with no evidence for diastolic dysfunction. ASA. (3) Tobacco Abuse: Encouraged cessation, inpatient consultation per RT, NR if desired. (4) Seizure disorder: Continue home Dilantin regimen. (5) Hypertension: Patient with noted history, BP since initial presentation is markedly improved in normal range, will defer any regimen addition, PRN IV hydralazine. (6) Hyperlipidemia: Not on regimen, defer to outpatient setting. (7) Severe protein-calorie malnutrition: Evidenced per habitus, muscle and fat loss evident, nutrition consulted. (8) DVT Prophylaxis: SCDs, lovenox. Code Visit Procedures: Other Procedure - See Report - Admitted after midnight, billing code:[id number]
[2018-11-12] VITALS (15 sets, daily range): BP systolic 94–131; BP diastolic 56–103; PULSE 64–108; RESP 12–30; TEMP 36.6–36.9; O2SAT 94–99
[2018-11-12] MEDS: Ipratropium/Albuterol Sulfate 3 ML AMPUL.NEB INHALATION ×6 (03:02→23:15)
[2018-11-12 05:39] LABS: Absolute Lymphocyte Count 0.49 X10^3/ul (0.83-4.51); Hematocrit 43.5 % (40-54); Hemoglobin 14.3 g/dl (13.0-16.5); Lymphocyte # 0.49 X10^3/ul (4.0); Lymphocyte % 6.1 % (19-41); Mean Corp Hgb Conc 32.9 g/gl (32-36); Mean Corpuscular Hgb 31.3 pg (27.0-32.0); Mean Corpuscular Volume 95.2 fL (80-94); Mean Platelet Vol. 9.2 fl (6.2-12.0); Monocyte# 0.57 X10^3/uL; Monocyte% 7.1 % (0-10); Neutrophil % 86.6 % (47-70); Platelet Count 172 K/mm3 (150-450); RBC Distribution Width CV 13.7 % (11.6-14.6); RBC Distribution Width SD 46.3 fl (35.1-43.9); Red Blood Count 4.57 M/mm3 (4.6-6.2); White Blood Count 8.1 K/mm3 (4.4-11.0)
[2018-11-12 05:40] LABS: Anion Gap 6 (5-15); BUN 20 mg/dL (7-18); BUN/Creat Ratio 22.6 RATIO (10-20); Calcium,Total 8.5 mg/dL (8.5-10.1); Chloride 105 mmol/L (98-107); Cholesterol 156 mg/dL (200); Creatinine, Serum 0.88 mg/dL (0.70-1.30); EST Glomerular Filtration Rate 93 mL/min (>60); Est Glom Filt Rate - Afr Amer 113 mL/min (>60); Estimated Creatinine Clearance 89.52 ml/min; Glucose 119 mg/dL (74-106); High Density Lipoprotein 39 mg/dL; Potassium 4.4 mmol/L (3.5-5.1); Sodium Level 140 mmol/L (136-145); Triglycerides 95 mg/dL; Very Low Density Lipoprotein 19 mg/dL (5-40)
[2018-11-12 05:46] LABS: Differential Indicated SCAN CRITERIA MET; POSITIVE COUNT NO; POSITIVE DIFFERENTIAL YES; POSITIVE MORPHOLOGY NO
--- NOTE | 2018-11-12 05:55 | EKG12_ITS ---
Test Reason : AM EKG Blood Pressure : / mmHG Vent. Rate : 082 BPM Atrial Rate : 082 BPM P-R Int : 126 ms QRS Dur : 074 ms QT Int : 392 ms P-R-T Axes : 085 -62 069 degrees QTc Int : 457 ms Normal sinus rhythm Left axis deviation Abnormal ECG When compared with ECG of 12-NOV-2018 05:02, MANUAL COMPARISON REQUIRED, DATA IS UNCONFIRMED Confirmed by ELGIN GARCIA, LAW ([id number]), senior technical editor RAYRAY MAO ([id number]) on 11/13/2018 1:48:57 PM Referred By: ANH Confirmed By:LAW EISENBERG MD
[2018-11-12] MEDS: 0.9% NaCl Peripheral Flush Adult/Peds IV ×5 (06:21→21:34)
--- NOTE | 2018-11-12 07:07 | PN_ITS ---
Patient Problems: Active and Suspected Problems Acute hypoxemic respiratory failure (Acute) Subjective: The patient was seen and examined at the bedside this morning. Events from the last 24 hours have been reviewed. The patient is currently afebrile, hemodynamically stable and maintaining appropriate oxygen saturations on 3 L/min via nasal cannula. The patient is currently resting at the bedside and does report interval improvement in his breathing quality. Objective: The patient's most recent lab work, culture data and imaging studies have all been personally reviewed. Blood cultures have shown no growth to date. Respiratory viral panel was negative. Sputum culture is pending. Surface ec hocardiogram revealed normal LV size and function with an ejection fraction of 55%. Right ventricular systolic pressure was estimated to be 27 mmHg. OUTSIDE MEDICAL RECORDS: Pulmonary function testing completed through the [facility], dated November 02, 2018, revealed evidence of a very severe obstructive ventilatory impairment with an FEV1 of 0.57 L, 15% of predicted. The patient did have a partial bronchodilator response. Lung volumes and diffusing capacity were not completed. The patient also completed a walking oximetry study at that time which revealed an oxygen saturation of 92% with ambulation. - Physical Exam General: Alert, Cooperative, No apparent distress HEENT: Atraumatic, PERRLA, Normocephalic Oral: No Gingival or Mucosal Lesions/ Ulcerations Neck: Supple, No Nodes, Trachea Midline Lungs: No rhonchi, No wheeze, No rales, Diminished Cardiovascular: Regular rate, Regular Rhythm, Normal S1, Normal S2, No murmurs Abdomen: Bowel Sounds Present, Soft, Non Tender, Non-Distended Extremities: No clubbing, No cyanosis, No edema Skin: No breakdown Musculoskeletal: No Tenderness to Palpation of Joints or Extremities Lymphatic: No Cervical, Supraclavicular, or Inguinal Adenopathy Neurological: Neuro grossly intact Psych/Mental Status: Alert and oriented to time, place, person, mood and affect Vital Signs Temp Pulse Resp BP Pulse Ox 36.9 C 103 H 18 94/56 L 99 11/12/18 03:00 11/12/18 03:02 11/12/18 03:02 11/12/18 03:00 11/12/18 03:02 Oxygen Flow Rate (L/min) 3 Oxygen Delivery Method Bi-pap Weight: 158 lb 1.143 oz Body Mass Index (BMI) 21.4 Intake and Output for Last 24 Hours 11/10/18 11/11/18 11/12/18 23:59 23:59 23:59 Intake Total 1012 / 1012 Output Total 755 / 755 250 / 250 Balance 257 / 257 -250 / -250 Microbiology Past 72 Hours 11/11/18 07:05 Gram Stain - Final Sputum, Expectorated/Coughed 11/11/18 01:33 Respiratory Panel (PCR) - Final Mucosa - Nasopharyngeal 11/11/18 01:33 Influenza Types A,B Direct FA (ANTONI) - Final Mucosa - Nasopharyngeal Laboratory Tests Past 24 Hrs 11/11/18 11/11/18 11/12/18 07:50 07:50 05:05 WBC 8.1 RBC 4.57 L Hgb 14.3 Hct 43.5 MCV 95.2 H MCH 31.3 MCHC 32.9 RDW 13.7 RDW Differential 46.3 H Plt Count 172 MPV 9.2 Immature Gran % (Auto) 0.200 Neut % (Auto) 86.6 H Lymph % (Auto) 6.1 L [place] % (Auto) 7.1 Eos % (Auto) 0.0 Baso % (Auto) 0.0 Absolute Neuts (auto) 7.0 Absolute Lymphs (auto) 0.49 L Total Counted Not Reportable Sodium Potassium Chloride Carbon Dioxide Anion Gap BUN Creatinine Estim Creat Clear Calc Est GFR (MDRD) Af Amer Est GFR (MDRD) Non-Af BUN/Creatinine Ratio Glucose Calcium Magnesium 2.3 Troponin I 0.068 H Triglycerides Cholesterol LDL Cholesterol VLDL Cholesterol HDL Cholesterol 11/12/18 05:05 WBC RBC Hgb Hct MCV MCH MCHC RDW RDW Differential Plt Count MPV Immature Gran % (Auto) Neut % (Auto) Lymph % (Auto) [place] % (Auto) Eos % (Auto) Baso % (Auto) Absolute Neuts (auto) Absolute Lymphs (auto) Total Counted Sodium 140 Potassium 4.4 Chloride 105 Carbon Dioxide 29.0 Anion Gap 6 BUN 20 H Creatinine 0.88 Estim Creat Clear Calc 89.52 Est GFR (MDRD) Af Amer 113 Est GFR (MDRD) Non-Af 93 BUN/Creatinine Ratio 22.6 H Glucose 119 H Calcium 8.5 Magnesium Troponin I Triglycerides 95 Cholesterol 156 LDL Cholesterol 98 VLDL Cholesterol 19 HDL Cholesterol 39 L Clinical Impression(s) from Imaging Studies Chest X-Ray 11/11/18 01:16 IMPRESSION: There is hyperinflation of the lungs consistent with chronic obstructive lung disease (COPD). Electronically Signed: Lizzy Roy, at 2:45 EDT Tel , Service support , Medical Necessity - Tobacco Use Smoking Status: Current every day smoker Assessment/Plan All Active Problems Acute hypoxemic respiratory failure (Acute) COPD with acute exacerbation (Acute) RECOMMENDATIONS: 1. Continue scheduled bronchodilators and IV steroids. 2. Continue antibiotics. 3. Wean supplemental oxygen as tolerated. 4. Encourage incentive spirometer use and mobilize patient as tolerated. 5. Nicotine replacement therapy can be offered while the patient is admitted to the hospital. 6. Perform walking oximetry study prior to consideration for discharge. 7. Recommend outpatient pulmonary follow-up for further optimization of his underlying inhaler regimen. IMPRESSIONS: 1. Acute hypoxemic respiratory failure secondary to end-stage COPD with exacerbation The patient presented to the hospital with hypoxemia and shortness of breath. Plain film chest imaging did not reveal evidence of an acute infiltrative process. The patient's pulmonary function studies from earlier this month reveal evidence of end-stage COPD, which is clearly suboptimally controlled in his home environment. In addition, the patient continues to smoke cigarettes daily. Continue scheduled bronchodilators along with IV steroids. Wean supplemental oxygen as tolerated. BiPAP can be utilized, if clinically needed. The patient ideally needs to be on a triple therapy inhaler regimen as an outpatient. I would strongly recommend outpatient pulmonary follow-up for further optimization of his baseline medication regimen. 2. Troponin elevation Most likely secondary to demand ischemia in the setting of #1. Surface echocardiogram was largely unremarkable. 3. Chronic tobacco dependency The patient does report a 50+ pack year smoking history and continues to smoke cigarettes daily. Nicotine replacement therapy can be utilized while the patient is admitted to the hospital. In addition, given the patient's age and smoking history, would recommend yearly low-dose CT scan of chest. 4. Unspecified seizure disorder/hypertension/hyperlipidemia Complicates care, management, recovery and prognosis. Likely okay to continue home medications. This note was generated with [employer] software. It may contain incorrect words, spelling, and punctuation that were not noted in checking the note before signing. Code Visit Inpatient E&M: [id number] Subs Hosp L2
[2018-11-12] MEDS: Phenytoin Na 100 MG Capsule 200 MG PO ×2 (08:01→16:01)
[2018-11-12] MEDS: Enoxaparin 40 MG/0.4 ML Syringe SC (08:01)
[2018-11-12] MEDS: Aspirin 81 MG TAB.CHEW PO (08:01)
--- NOTE | 2018-11-12 15:37 | PCM.PN.HOSP ---
Patient Problems: Active and Suspected Problems Acute hypoxemic respiratory failure (Acute) Subjective: Patient with no acute events overnight per self and per nursing report. Patient transition from ICU to PCU status the day prior. He used BiPAP overnight as ordered. He states he is feeling improved with less coughing, wheezing and fatigue but with any exertion he does be, again very fatigued. He still does have coughing bouts but these are markedly improved. Patient denies fevers, chills, nausea, emesis, abdominal pain, chest pain. Objective: Physical Examination: General: awake, alert, oriented x 3 and cooperative, seated upright at the PCU bedside, improved appearance, not sleep breathing, more comfortable than day prior but very fatigued appearance. Skin: normal color, turgor, no icterus, cyanosis. HEENT: AT/NC, EOMI, PERRLA, improved less dry MM. Lungs: Diffusely diminished breath sounds, greater bilateral bases, currently no wheezing, not using accessory muscles any longer and currently not pursed lip breathing. Heart: Regular rate and rhythm; no gallop, rub audible. Abdomen: soft, thin cachectic habitus, NTTP, ND, normal BS. Extremities: no cyanosis, clubbing, or edema. Neurological: patient awake, alert, oriented x 3; cognitive function intact; pupils equally reactive to light and accomodation; cranial nerves II-XII grossly normal, moving all 4 extremities, no focal deficits, strength remains severely globally decreased secondary to acute presentation. Psychiatric: affect appears fatigued, no acute evidence of depressive or anxiety feelings. Vitals/I&O's: Vital Signs Temp Pulse Resp BP Pulse Ox 98.3 F 108 H 16 107/74 96 11/12/18 13:50 11/12/18 15:09 11/12/18 14:28 11/12/18 13:50 11/12/18 14:28 Oxygen Flow Rate (L/min) 3 Oxygen Delivery Method Nasal Cannula Weight: 158 lb 1.143 oz Body Mass Index (BMI) 21.4 Intake and Output for Last 24 Hours 11/10/18 11/11/18 11/12/18 23:59 23:59 23:59 Intake Total 1012 / 1012 240 / 240 Output Total 755 / 755 600 / 600 Balance 257 / 257 -360 / -360 Microbiology Past 72 Hours 11/11/18 07:05 Sputum, Expectorated/Coughed Gram Stain - Final 11/11/18 07:05 Sputum, Expectorated/Coughed Respiratory Culture - Preliminary Appears to be normal respiratory nadia. Further studies to follow. 11/11/18 01:33 Mucosa - Nasopharyngeal Respiratory Panel (PCR) - Final 11/11/18 01:33 Mucosa - Nasopharyngeal Influenza Types A,B Direct FA (ANTONI) - Final Laboratory Results 11/12/18 05:05: WBC 8.1, RBC 4.57 L, Hgb 14.3, Hct 43.5, MCV 95.2 H, MCH 31.3, MCHC 32.9, RDW 13.7, RDW Differential 46.3 H, Plt Count 172, MPV 9.2, Immature Gran % (Auto) 0.200, Neut % (Auto) 86.6 H, Lymph % (Auto) 6.1 L, [place] % (Auto) 7.1, Eos % (Auto) 0.0, Baso % (Auto) 0.0, Absolute Neuts (auto) 7.0, Absolute Lymphs (auto) 0.49 L, Total Counted Not Reportable 11/12/18 05:05: Sodium 140, Potassium 4.4, Chloride 105, Carbon Dioxide 29.0, Anion Gap 6, BUN 20 H, Creatinine 0.88, Estim Creat Clear Calc 89.52, Est GFR (MDRD) Af Amer 113, Est GFR (MDRD) Non-Af 93, BUN/Creatinine Ratio 22.6 H, Glucose 119 H, Calcium 8.5, Triglycerides 95, Cholesterol 156, LDL Cholesterol 98, VLDL Cholesterol 19, HDL Cholesterol 39 L Current Medications Acetaminophen (Tylenol) 650 mg PO Q6H PRN PRN PRN Reason: Non-cardiac pain (mod-severe) Albuterol Sulfate (Ventolin Aerosols) 2.5 mg INHALATION Q2H PRN PRN PRN Reason: SHORTNESS OF BREATH Albuterol/Ipratropium (Duoneb) 3 ml INHALATION Q4H.RT [facility] Last Admin: 11/12/18 14:28 Dose: 3 ml Aspirin (Aspirin, Baby) 81 mg PO DAILY@0800 [facility] Last Admin: 11/12/18 08:01 Dose: 81 mg Enoxaparin Sodium (Lovenox) 40 mg SC DAILY@1000 [facility] Last Admin: 11/12/18 08:01 Dose: 40 mg Azithromycin 500 mg/ Dextrose 255 mls @ 250 mls/hr IV Q24@2200 MAX Stop: 11/12/18 23:02 Last Admin: 11/11/18 20:58 Dose: 250 mls/hr Sodium Chloride () 250 mls @ 15 mls/hr IV .[id number] PRN PRN Reason: SALINE FLUSH Last Admin: 11/11/18 05:53 Dose: 15 mls/hr Magnesium Hydroxide (Milk Of Magnesia) 30 ml PO DAILY PRN PRN PRN Reason: Constipation Methylprednisolone (Solu-Medrol) 40 mg IV Q8 [facility] Last Admin: 11/12/18 15:14 Dose: 40 mg Ondansetron HCl (Zofran) 4 mg IV Q8H PRN PRN PRN Reason: Nausea Phenytoin Sodium (Dilantin) 200 mg PO BIDCM [facility] Last Admin: 11/12/18 08:01 Dose: 200 mg Sodium Chloride () 5 - 15 ml IV UD PRN PRN Reason: SALINE FLUSH Last Admin: 11/12/18 06:23 Dose: 5 ml Medical Necessity - Tobacco Use Smoking Status: Current every day smoker Assessment/Plan All Active Problems Acute hypoxemic respiratory failure (Acute) COPD with acute exacerbation (Acute) The patient is a 63 y/o M w/ PMHx: Severe End Stage Chronic COPD w/ Chronic Hypoxic Respiratory Failure previously on supplemental oxygen although has no longer been on this recently, HTN, HLD, Seizure disorder, Ongoing Tobacco use who presents to the [facility] ED on 11/11/18 with history of severe progressively worsening dyspnea, dry cough, wheezing, worse with any exertional effort times 3 days. (1) Acute Hypoxic and Hypercarbic Respiratory Failure on Chronic secondary to Acute on chronic COPD exacerbation: ED presentation with patient noted to be afebrile, tachycardic, tachypnea, increased work of breathing with accessory muscle usage, ABG with pH 7.32, PCO2 57, PO2 101 with aggressive supplementation at that time, CMP with elevated bicarb 34, lactic acid 2.2 with correction following, troponin indeterminate 0.069 with EKG with no acute evidence of ischemia, chest x-ray with chronic changes with no acute cardia pulmonary process. Patient admitted initially to the ICU, maintained on BiPAP with transition to oxygen supplementation once improved, continue ATC duonebs, PRN albuterol, IV methylprednisolone, HOB, IS parameters, IV Azithromycin continued, respiratory viral panel unremarkable, sputum culture preliminary normal nadia but final pending, blood culture x2 pending per ED. Given patient clinical improvement transitioned 11/11/18 to PCU status. Continued on BIPAP q HS. If continues to improvement will plan likely discharge to home in AM with follow-up outpatient with Dr. Maxwell. (2) Indeterminate cardiac enzyme: Likely secondary to demand ischemia secondary to acute presentation #1. Maintained on a monitored bed to assure no acute myocardial infarction with serial cardiac enzymes and EKGs. Enzyme trending w/ 0.069->0.092->0.068, no specific chest pain complaint, EKGs with no acute evidence of ischemia, echocardiogram obtained with normal LV systolic function, EF 55%, trivial MDI, trivial TBI, RVSP 27 mmHg with no evidence for diastolic dysfunction. ASA. (3) Tobacco Abuse: Encouraged cessation, inpatient consultation per RT, NR if desired. (4) Seizure disorder: Continue home Dilantin regimen. (5) Hypertension: Patient with noted history, BP since initial presentation is markedly improved in normal range, will defer any regimen addition, PRN IV hydralazine. (6) Hyperlipidemia: Not on regimen, defer to outpatient setting. (7) Severe protein-calorie malnutrition: Evidenced per habitus, muscle and fat loss evident, nutrition consulted and following. (8) DVT Prophylaxis: SCDs, lovenox. Code Visit Inpatient E&M: 02369 Subs Hosp L2
--- NOTE | 2018-11-12 15:42 | PN_ITS ---
Patient Problems: Active and Suspected Problems Acute hypoxemic respiratory failure (Acute) Subjective: Patient with no acute events overnight per self and per nursing report. Patient transition from ICU to PCU status the day prior. He used BiPAP overnight as ordered. He states he is feeling improved with less coughing, wheezing and fatigue but with any exertion he does be, again very fatigued. He still does have coughing bouts but these are markedly improved. Patient denies fevers, chills, nausea, emesis, abdominal pain, chest pain. Objective: Physical Examination: General: awake, alert, oriented x 3 and cooperative, seated upright at the PCU bedside, improved appearance, not sleep breathing, more comfortable than day prior but very fatigued appearance. Skin: normal color, turgor, no icterus, cyanosis. HEENT: AT/NC, EOMI, PERRLA, improved less dry MM. Lungs: Diffusely diminished breath sounds, greater bilateral bases, currently no wheezing, not using accessory muscles any longer and currently not pursed lip breathing. Heart: Regular rate and rhythm; no gallop, rub audible. Abdomen: soft, thin cachectic habitus, NTTP, ND, normal BS. Extremities: no cyanosis, clubbing, or edema. Neurological: patient awake, alert, oriented x 3; cognitive function intact; pupils equally reactive to light and accomodation; cranial nerves II-XII grossly normal, moving all 4 extremities, no focal deficits, strength remains severely globally decreased secondary to acute presentation. Psychiatric: affect appears fatigued, no acute evidence of depressive or anxiety feelings. Vitals/I&O's: Vital Signs Temp Pulse Resp BP Pulse Ox 98.3 F 108 H 16 107/74 96 11/12/18 13:50 11/12/18 15:09 11/12/18 14:28 11/12/18 13:50 11/12/18 14:28 Oxygen Flow Rate (L/min) 3 Oxygen Delivery Method Nasal Cannula Weight: 158 lb 1.143 oz Body Mass Index (BMI) 21.4 Intake and Output for Last 24 Hours 11/10/18 11/11/18 11/12/18 23:59 23:59 23:59 Intake Total 1012 / 1012 240 / 240 Output Total 755 / 755 600 / 600 Balance 257 / 257 -360 / -360 Microbiology Past 72 Hours 11/11/18 07:05 Sputum, Expectorated/Coughed Gram Stain - Final 11/11/18 07:05 Sputum, Expectorated/Coughed Respiratory Culture - Preliminary Appears to be normal respiratory nadia. Further studies to follow. 11/11/18 01:33 Mucosa - Nasopharyngeal Respiratory Panel (PCR) - Final 11/11/18 01:33 Mucosa - Nasopharyngeal Influenza Types A,B Direct FA (ANTONI) - Final Laboratory Results 11/12/18 05:05: WBC 8.1, RBC 4.57 L, Hgb 14.3, Hct 43.5, MCV 95.2 H, MCH 31.3, MCHC 32.9, RDW 13.7, RDW Differential 46.3 H, Plt Count 172, MPV 9.2, Immature Gran % (Auto) 0.200, Neut % (Auto) 86.6 H, Lymph % (Auto) 6.1 L, [place] % (Auto) 7.1, Eos % (Auto) 0.0, Baso % (Auto) 0.0, Absolute Neuts (auto) 7.0, Absolute Lymphs (auto) 0.49 L, Total Counted Not Reportable 11/12/18 05:05: Sodium 140, Potassium 4.4, Chloride 105, Carbon Dioxide 29.0, Anion Gap 6, BUN 20 H, Creatinine 0.88, Estim Creat Clear Calc 89.52, Est GFR (MDRD) Af Amer 113, Est GFR (MDRD) Non-Af 93, BUN/Creatinine Ratio 22.6 H, Glucose 119 H, Calcium 8.5, Triglycerides 95, Cholesterol 156, LDL Cholesterol 98, VLDL Cholesterol 19, HDL Cholesterol 39 L Current Medications Acetaminophen (Tylenol) 650 mg PO Q6H PRN PRN PRN Reason: Non-cardiac pain (mod-severe) Albuterol Sulfate (Ventolin Aerosols) 2.5 mg INHALATION Q2H PRN PRN PRN Reason: SHORTNESS OF BREATH Albuterol/Ipratropium (Duoneb) 3 ml INHALATION Q4H.RT [facility] Last Admin: 11/12/18 14:28 Dose: 3 ml Aspirin (Aspirin, Baby) 81 mg PO DAILY@0800 [facility] Last Admin: 11/12/18 08:01 Dose: 81 mg Enoxaparin Sodium (Lovenox) 40 mg SC DAILY@1000 [facility] Last Admin: 11/12/18 08:01 Dose: 40 mg Azithromycin 500 mg/ Dextrose 255 mls @ 250 mls/hr IV Q24@2200 MAX Stop: 11/12/18 23:02 Last Admin: 11/11/18 20:58 Dose: 250 mls/hr Sodium Chloride () 250 mls @ 15 mls/hr IV .[id number] PRN PRN Reason: SALINE FLUSH Last Admin: 11/11/18 05:53 Dose: 15 mls/hr Magnesium Hydroxide (Milk Of Magnesia) 30 ml PO DAILY PRN PRN PRN Reason: Constipation Methylprednisolone (Solu-Medrol) 40 mg IV Q8 [facility] Last Admin: 11/12/18 15:14 Dose: 40 mg Ondansetron HCl (Zofran) 4 mg IV Q8H PRN PRN PRN Reason: Nausea Phenytoin Sodium (Dilantin) 200 mg PO BIDCM [facility] Last Admin: 11/12/18 08:01 Dose: 200 mg Sodium Chloride () 5 - 15 ml IV UD PRN PRN Reason: SALINE FLUSH Last Admin: 11/12/18 06:23 Dose: 5 ml Medical Necessity - Tobacco Use Smoking Status: Current every day smoker Assessment/Plan All Active Problems Acute hypoxemic respiratory failure (Acute) COPD with acute exacerbation (Acute) The patient is a 63 y/o M w/ PMHx: Severe End Stage Chronic COPD w/ Chronic Hypoxic Respiratory Failure previously on supplemental oxygen although has no longer been on this recently, HTN, HLD, Seizure disorder, Ongoing Tobacco use who presents to the [facility] ED on 11/11/18 with history of severe progressively worsening dyspnea, dry cough, wheezing, worse with any exertional effort times 3 days. (1) Acute Hypoxic and Hypercarbic Respiratory Failure on Chronic secondary to Acute on chronic COPD exacerbation: ED presentation with patient noted to be afebrile, tachycardic, tachypnea, increased work of breathing with accessory muscle usage, ABG with pH 7.32, PCO2 57, PO2 101 with aggressive supplementation at that time, CMP with elevated bicarb 34, lactic acid 2.2 with correction following, troponin indeterminate 0.069 with EKG with no acute evidence of ischemia, chest x-ray with chronic changes with no acute cardia pulmonary process. Patient admitted initially to the ICU, maintained on BiPAP with transition to oxygen supplementation once improved, continue ATC duonebs, PRN albuterol, IV methylprednisolone, HOB, IS parameters, IV Azithromycin continued, respiratory viral panel unremarkable, sputum culture preliminary normal nadia but final pending, blood culture x2 pending per ED. Given patient clinical im provement transitioned 11/11/18 to PCU status. Continued on BIPAP q HS. If continues to improvement will plan likely discharge to home in AM with follow-up outpatient with Dr. Maxwell. (2) Indeterminate cardiac enzyme: Likely secondary to demand ischemia secondary to acute presentation #1. Maintained on a monitored bed to assure no acute myocardial infarction with serial cardiac enzymes and EKGs. Enzyme trending w/ 0.069->0.092->0.068, no specific chest pain complaint, EKGs with no acute evidence of ischemia, echocardiogram obtained with normal LV systolic function, EF 55%, trivial MDI, trivial TBI, RVSP 27 mmHg with no evidence for diastolic dysfunction. ASA. (3) Tobacco Abuse: Encouraged cessation, inpatient consultation per RT, NR if desired. (4) Seizure disorder: Continue home Dilantin regimen. (5) Hypertension: Patient with noted history, BP since initial presentation is markedly improved in normal range, will defer any regimen addition, PRN IV hydralazine. (6) Hyperlipidemia: Not on regimen, defer to outpatient setting. (7) Severe protein-calorie malnutrition: Evidenced per habitus, muscle and fat loss evident, nutrition consulted and following. (8) DVT Prophylaxis: SCDs, lovenox. Code Visit Inpatient E&M: 69470 Subs Hosp L2
[2018-11-13] VITALS (16 sets, daily range): BP systolic 106–114; BP diastolic 72–81; PULSE 65–96; RESP 12–21; TEMP 36.4–36.9; O2SAT 79–100
[2018-11-13 05:22] LABS: Absolute Lymphocyte Count 0.62 X10^3/ul (0.83-4.51); Absolute Neutrophil Count 7.2 X10^3/uL (2.0-7.7); Hematocrit 42.7 % (40-54); Lymphocyte # 0.62 X10^3/ul (4.0); Lymphocyte % 7.6 % (19-41); Mean Corp Hgb Conc 32.8 g/gl (32-36); Mean Corpuscular Hgb 31.3 pg (27.0-32.0); Mean Corpuscular Volume 95.5 fL (80-94); Mean Platelet Vol. 9.5 fl (6.2-12.0); Monocyte# 0.34 X10^3/uL; Monocyte% 4.2 % (0-10); Neutrophil % 88.1 % (47-70); Platelet Count 183 K/mm3 (150-450); RBC Distribution Width CV 13.5 % (11.6-14.6); RBC Distribution Width SD 46.2 fl (35.1-43.9); Red Blood Count 4.47 M/mm3 (4.6-6.2); White Blood Count 8.2 K/mm3 (4.4-11.0)
[2018-11-13 05:28] LABS: Anion Gap 5 (5-15); BUN 25 mg/dL (7-18); BUN/Creat Ratio 28.8 RATIO (10-20); Calcium,Total 8.4 mg/dL (8.5-10.1); Chloride 104 mmol/L (98-107); Creatinine, Serum 0.87 mg/dL (0.70-1.30); EST Glomerular Filtration Rate 95 mL/min (>60); Est Glom Filt Rate - Afr Amer 115 mL/min (>60); Estimated Creatinine Clearance 90.43 ml/min; Glucose 108 mg/dL (74-106); Potassium 4.4 mmol/L (3.5-5.1); Sodium Level 141 mmol/L (136-145)
[2018-11-13 05:34] LABS: POSITIVE COUNT NO; POSITIVE DIFFERENTIAL NO; POSITIVE MORPHOLOGY NO
[2018-11-13] MEDS: 0.9% NaCl Peripheral Flush Adult/Peds IV ×3 (05:41→13:54)
[2018-11-13] MEDS: Ipratropium/Albuterol Sulfate 3 ML AMPUL.NEB INHALATION ×2 (07:00→11:20)
[2018-11-13] MEDS: Phenytoin Na 100 MG Capsule 200 MG PO (09:18)
[2018-11-13] MEDS: Enoxaparin 40 MG/0.4 ML Syringe SC (09:18)
[2018-11-13] MEDS: Aspirin 81 MG TAB.CHEW PO (09:18)
--- NOTE | 2018-11-13 10:26 | PCM.PROGNOTE ---
Patient Problems: Active and Suspected Problems Acute hypoxemic respiratory failure (Acute) Subjective: The patient was seen and examined at the bedside this morning. Events from the last 24 hours have been reviewed. The patient is currently afebrile, hemodynamically stable and maintaining appropriate oxygen saturations on 2 L/min via nasal cannula. Patient is sitting in his bedside recliner. He is anxious for discharge home. Objective: The patient's most recent lab work, culture data and imaging studies have all been personally reviewed. Blood cultures have shown no growth to date. Respiratory viral panel was negative. Sputum culture has been unrevealing to date. Surface echocardiogram revealed normal LV size and function with an ejection fraction of 55%. Right ventricular systolic pressure was estimated to be 27 mmHg. - Physical Exam General: Alert, Oriented x3, Cooperative, No apparent distress HEENT: Atraumatic, PERRLA, Normocephalic Oral: Moist Mucosa, No Gingival or Mucosal Lesions/ Ulcerations Neck: Supple, No Nodes, Trachea Midline Lungs: No rhonchi, No wheeze, No rales, Diminished Cardiovascular: Regular rate, Regular Rhythm, Normal S1, Normal S2, No murmurs Abdomen: Bowel Sounds Present, Soft, Non Tender, Non-Distended Extremities: No clubbing, No cyanosis, No edema Skin: - - No significant change from previous Musculoskeletal: No Tenderness to Palpation of Joints or Extremities Lymphatic: No Cervical, Supraclavicular, or Inguinal Adenopathy Neurological: Cranial nerves II-XII grossly intact, Neuro grossly intact Psych/Mental Status: Normal Affect, Appropriate Vital Signs Temp Pulse Resp BP Pulse Ox 36.8 C 80 14 114/73 96 11/13/18 09:12 11/13/18 09:12 11/13/18 09:12 11/13/18 09:12 11/13/18 09:12 Oxygen Flow Rate (L/min) 2 Oxygen Delivery Method Nasal Cannula Weight: 158 lb 8.198 oz Body Mass Index (BMI) 21.4 Intake and Output for Last 24 Hours 11/11/18 11/12/18 11/13/18 23:59 23:59 23:59 Intake Total 1012 / 1012 821 / 821 Output Total 755 / 755 1175 / 1175 Balance 257 / 257 -354 / -354 Microbiology Past 72 Hours 11/11/18 07:05 Gram Stain - Final Sputum, Expectorated/Coughed Respiratory Culture - Final 11/11/18 01:33 Respiratory Panel (PCR) - Final Mucosa - Nasopharyngeal 11/11/18 01:33 Influenza Types A,B Direct FA (ANTONI) - Final Mucosa - Nasopharyngeal Laboratory Tests Past 24 Hrs 11/13/18 11/13/18 04:47 04:47 WBC 8.2 RBC 4.47 L Hgb 14.0 Hct 42.7 MCV 95.5 H MCH 31.3 MCHC 32.8 RDW 13.5 RDW Differential 46.2 H Plt Count 183 MPV 9.5 Immature Gran % (Auto) 0.100 Neut % (Auto) 88.1 H Lymph % (Auto) 7.6 L [place] % (Auto) 4.2 Eos % (Auto) 0.0 Baso % (Auto) 0.0 Absolute Neuts (auto) 7.2 Absolute Lymphs (auto) 0.62 L Total Counted Not Reportable Sodium 141 Potassium 4.4 Chloride 104 Carbon Dioxide 32.0 Anion Gap 5 BUN 25 H Creatinine 0.87 Estim Creat Clear Calc 90.43 Est GFR (MDRD) Af Amer 115 Est GFR (MDRD) Non-Af 95 BUN/Creatinine Ratio 28.8 H Glucose 108 H Calcium 8.4 L Clinical Impression(s) from Imaging Studies Chest X-Ray 11/11/18 01:16 IMPRESSION: There is hyperinflation of the lungs consistent with chronic obstructive lung disease (COPD). Electronically Signed: Lizzy Roy, at 2:45 EDT Tel , Service support , Medical Necessity - Tobacco Use Smoking Status: Current every day smoker Assessment/Plan All Active Problems Acute hypoxemic respiratory failure (Acute) COPD with acute exacerbation (Acute) RECOMMENDATIONS: 1. Continue scheduled bronchodilators and steroids. Okay to transition to prednisone 40 mg daily by mouth. 2. At discharge, recommend weaning the prednisone by 10 mg every 3 days. 3. Wean supplemental oxygen as tolerated. 4. Encourage incentive spirometer use and mobilize patient as tolerated. 5. Nicotine replacement therapy can be offered while the patient is admitted to the hospital. 6. Perform walking oximetry study prior to consideration for discharge. 7. Recommend outpatient pulmonary follow-up for further optimization of his underlying inhaler regimen. IMPRESSIONS: 1. Acute hypoxemic respiratory failure secondary to end-stage COPD with exacerbation The patient presented to the hospital with hypoxemia and shortness of breath. Plain film chest imaging did not reveal evidence of an acute infiltrative process. The patient's pulmonary function studies from earlier this month reveal evidence of end-stage COPD, which is clearly suboptimally controlled in his home environment. In addition, the patient continues to smoke cigarettes daily. Continue scheduled bronchodilators along with steroids. Wean supplemental oxygen as tolerated. The patient ideally needs to be on a triple therapy inhaler regimen as an outpatient. I would strongly recommend outpatient pulmonary follow-up for further optimization of his baseline medication regimen. 2. Troponin elevation Most likely secondary to demand ischemia in the setting of #1. Surface echocardiogram was largely unremarkable. 3. Chronic tobacco dependency The patient does report a 50+ pack year smoking history and continues to smoke cigarettes daily. Nicotine replacement therapy can be utilized while the patient is admitted to the hospital. In addition, given the patient's age and smoking history, would recommend yearly low-dose CT scan of chest. 4. Unspecified seizure disorder/hypertension/hyperlipidemia Complicates care, management, recovery and prognosis. Likely okay to continue home medications. This note was generated with [employer] dictation software. It may contain incorrect words, spelling, and punctuation that were not noted in checking the note before signing. Code Visit Inpatient E&M: 86358 Subs Hosp L2
--- NOTE | 2018-11-13 10:54 | CASEMGMT ---
Addendum entered by Yvette Heller 11/13/18 11:50: Per Zak RN, pt did qualify for home oxygen at this time. Referral faxed to [facility] at this time with [facility]. Irish KANG CM Original Note: Call to Yaneth at [facility] and notified that order for RN, PT/OT and that pt will be discharged today, voice understanding. Irish KANG CM
--- NOTE | 2018-11-13 11:19 | DCINST_ITS ---
- Discharge Diagnoses Current Active Problems: Current Active and Chronic Problems (1) Acute Hypoxic and Hypercarbic Respiratory Failure on Chronic secondary to Acute on chronic COPD exacerbation (2) Indeterminate cardiac enzyme, secondary to demand ischemia secondary to acute presentation #1 (3) Tobacco Abuse (4) Seizure disorder (5) History of Hypertension, not on regimen with normal BPs (6) Hyperlipidemia (7) Severe protein-calorie malnutrition You will use the following diet at home:: Cardiac Your food should be the consistency of: Regular Your liquids should be the consistency of: Regular/Thin Discharge Activity: - - Avoid any activity greater than mild to moderate until completed steroid taper and clinically improved as well as cleared per Pulmonary Medicine. May resume sexual activity in: 1-2 weeks Weight Bearing Status: Weight bearing as tolerated Call your doctor if you observe: Fever of 101 or Higher, Inability to urinate, Inability to have a bowel movement, Shortness of breath, Dizziness, Fainting spells, Chest pain, Uncontrolled pain Instructions: What is COPD?, Chronic Lung Disease: Preventing Lung Infections, What Is Emphysema?, Resources for Chronic Lung Disease, Caring for Your Inhaler, Using an Inhaler Without a Spacer, Traveling with Oxygen, Using Oxygen Safely, Pursed-Lip Breathing, Using a Nebulizer (Adult), Why Do You Smoke?, Planning to Quit Smoking, Getting Support for Quitting Smoking, Coping with Smoking Withdrawal Allergies/Adverse Reactions: Allergies codeine Adverse Reaction (Verified 11/11/18 01:06) Nausea Medications to take at Discharge Phenytoin Na [Dilantin] 200 mg PO BID 07/24/15 Nebulizer [Lc Star] 1 each UD #1 kit 07/25/15 Albuterol Aerosols [Ventolin Aerosols] 2.5 mg INHALATION Q2H PRN PRN #1 box 11/13/18 Albuterol Inhaler [Ventolin Hfa] 1 - 2 puff INHALATION Q4H PRN PRN #1 inhaler 11/13/18 Aspirin [Aspirin, Baby] 81 mg PO DAILY@0800 tab.chew 11/13/18 Ipratropium/Albuterol Sulfate [Duoneb] 3 ml INHALATION Q4H.RT #1 box 11/13/18 Prednisone 10 mg PO UD #30 tablet 11/13/18 The following prescriptions were given: Albuterol Aerosols [Ventolin Aerosols] 2.5 mg INHALATION Q2H PRN PRN #1 box PRN Reason: dypsnea, wheezing Albuterol Inhaler [Ventolin Hfa] 1 - 2 puff INHALATION Q4H PRN PRN #1 inhaler PRN Reason: Sob &/Or Wheezing Ipratropium/Albuterol Sulfate [Duoneb] 3 ml INHALATION Q4H.RT #1 box Prednisone 10 mg PO UD #30 tablet Primary Care Physician: Tho Steen MD [Primary Care Provider] - Please follow up with your Primary Care Physician in: Follow-up in 3-5 days to review admission. Test Results: Test results from this visit will be discussed in further detail at your follow- up appointment, if applicable. Please Follow Up With: Carlos Maxwell DO When: Follow-up within 1-2 weeks for re-evaluation. Proposed Discharge Date: 11/13/18
--- NOTE | 2018-11-13 11:27 | DS.PCM_ITS ---
Discharge Date and Diagnosis - Problem List Patient Problems: Active and Suspected Problems Acute hypoxemic respiratory failure (Acute) Date of Admission: 11/11/18 Date of Discharge: 11/13/18 - Primary Discharge Diagnosis Active and Suspected Problems (1) Acute Hypoxic and Hypercarbic Respiratory Failure on Chronic secondary to Acute on chronic COPD exacerbation (2) Indeterminate cardiac enzyme, secondary to demand ischemia secondary to acute presentation #1 (3) Tobacco Abuse (4) Seizure disorder (5) History of Hypertension, not on regimen with normal BPs (6) Hyperlipidemia (7) Severe protein-calorie malnutrition - Secondary Discharge Diagnosis Chronic Problems Chronic hypercapnic respiratory failure (Chronic) Hypertension (Chronic) Seizure disorder (Chronic) Hyperlipidemia (Chronic) COPD (chronic obstructive pulmonary disease) (Chronic) Hospital Course and Treatment Dr. Maxwell Pulmonary/Critical Care Operations: None Procedures: EKG, Transthoracic echo Summary of Care Provided: The patient is a 63 y/o M w/ PMHx: Severe End Stage Chronic COPD w/ Chronic Hypoxic Respiratory Failure previously on supplemental oxygen although has no longer been on this recently, HTN, HLD, Seizure disorder, Ongoing Tobacco use who presented to the [facility] ED on 11/11/18 with history of severe progressively worsening dyspnea, dry cough, wheezing, worse with any exertional effort times 3 days. ED presentation with patient noted to be afebrile, tachycardic, tachypnea, increased work of breathing with accessory muscle usage, ABG with pH 7.32, PCO2 57, PO2 101 with aggressive supplementation at that time, CMP with elevated bicarb 34, lactic acid 2.2 with correction following, troponin indeterminate 0.069 with EKG with no acute evidence of ischemia, chest x-ray with chronic changes with no acute cardia pulmonary process. Patient admitted initially to the ICU, maintained on BiPAP with transition to oxygen supplementation once improved, continue ATC duonebs, PRN albuterol, IV methylprednisolone with 12 day taper oral prednisone regimen upon discharge, HOB, IS parameters, IV Azit hromycin 3 day regimen administered, respiratory viral panel unremarkable, sputum culture preliminary normal nadia, blood culture x2 with NGTD. Given patient clinical improvement transitioned 11/11/18 to PCU status. Continued on BIPAP q HS while inpatient. Patient with noted indeterminate cardiac enzyme, felt secondary to demand ischemia secondary to acute presentation with patient continued on a monitored bed w/ enzyme trending w/ 0.069->0.092->0.068, EKGs with no acute evidence of ischemia, echocardiogram obtained with normal LV systolic function, EF 55%, trivial MDI, trivial TBI, RVSP 27 mmHg with no evidence for diastolic dysfunction with patient maintained on ASA 81 mg daily. Encouraged strongly tobacco cessation, inpatient consultation per RT, NR declined. Patient maintained on his dilantin seizure regimen during admission with history of HTN; however BP low normal during admission with no regimen initiation. Patient w/ evidence Severe protein-calorie malnutrition: Evidenced per habitus, muscle and fat loss evident, nutrition consulted during admission. Oxygenation testing performed prior to discharge and patient decreased with exertion off oxygen to 79% with improvement to 93% on 3L NC supplementation. Supplementation arranged upon discharge. Patient possible home BIPAP to be arranged at follow-up with Pulmonary if felt necessary but patient noted subjective improvement with q HS usage. Patient discharged to home in improved condition with strict activity parameters, steroid taper, aerosols with PCP and Pulmonary follow-up. DAY OF DISCHARGE PROGRESS NOTE: Subjective: Patient without acute event overnight per self and nursing report. Patient is still very fatigued but improved from day prior and breathing better although worsens with any activity. She remains on oxygen and oxygen supplementation testing currently being performed. Patient denies fever, chills, nausea, emesis, abdominal pain, chest pain or dyspnea. Patient agreeable to discharge to home with understanding of continued aerosol usage, steroid taper as well as oxygen supplementation with close follow-up with PCP within 3 to 5 days as well as pulmonary medicine. Objective: T 98.3, heart rate 80, BP 114/73, respiratory rate 14, 96% on 2 L nasal cannula. Physical Examination: General: awake, alert, oriented x 3 and cooperative, seated upright in the bedside chair, NAD currently, improved appearance, still fatigued. Skin: normal color, turgor, no icterus, cyanosis. HEENT: AT/NC, EOMI, PERRLA, improved MMM. Lungs: Diffusely diminished breath sounds, greater bilateral bases, no wheezing, no accessory muscles, not pursed lip breathing. Heart: Regular rate and rhythm; no gallop, rub audible. Abdomen: soft, thin cachectic habitus, NTTP, ND, normal BS. Extremities: no cyanosis, clubbing, or edema. Neurological: patient awake, alert, oriented x 3; cognitive function intact; pupils equally reactive to light and accomodation; cranial nerves II-XII grossly normal, moving all 4 extremities, no focal deficits, strength remains moderately to severely globally decreased secondary to acute presentation. Psychiatric: affect appears fatigued, no acute evidence of depressive or anxiety feelings. Assessment and Plan: Please see hospital summary above. Patient Problems: Active and Suspected Problems Acute hypoxemic respiratory failure (Acute) - Physical Exam Vital Signs Temp Pulse Resp BP Pulse Ox 98.3 F 80 14 114/73 79 11/13/18 09:12 11/13/18 09:12 11/13/18 09:12 11/13/18 09:12 11/13/18 11:10 Oxygen Flow Rate (L/min) 2 Oxygen Delivery Method Nasal Cannula Weight: 158 lb 8.198 oz Body Mass Index (BMI) 21.4 Intake and Output for Last 24 Hours 11/11/18 11/12/18 11/13/18 23:59 23:59 23:59 Intake Total 1012 / 1012 821 / 821 Output Total 755 / 755 1175 / 1175 Balance 257 / 257 -354 / -354 Microbiology Past 72 Hours 11/11/18 07:05 Gram Stain - Final Sputum, Expectorated/Coughed Respiratory Culture - Final 11/11/18 01:33 Respiratory Panel (PCR) - Final Mucosa - Nasopharyngeal 11/11/18 01:33 Influenza Types A,B Direct FA (ANTONI) - Final Mucosa - Nasopharyngeal Laboratory Tests Past 24 Hrs 11/13/18 11/13/18 04:47 04:47 WBC 8.2 RBC 4.47 L Hgb 14.0 Hct 42.7 MCV 95.5 H MCH 31.3 MCHC 32.8 RDW 13.5 RDW Differential 46.2 H Plt Count 183 MPV 9.5 Immature Gran % (Auto) 0.100 Neut % (Auto) 88.1 H Lymph % (Auto) 7.6 L [place] % (Auto) 4.2 Eos % (Auto) 0.0 Baso % (Auto) 0.0 Absolute Neuts (auto) 7.2 Absolute Lymphs (auto) 0.62 L Total Counted Not Reportable Sodium 141 Potassium 4.4 Chloride 104 Carbon Dioxide 32.0 Anion Gap 5 BUN 25 H Creatinine 0.87 Estim Creat Clear Calc 90.43 Est GFR (MDRD) Af Amer 115 Est GFR (MDRD) Non-Af 95 BUN/Creatinine Ratio 28.8 H Glucose 108 H Calcium 8.4 L Discharge Activity: - - Avoid any activity greater than mild to moderate until completed steroid taper and clinically improved as well as cleared per Pulmonary Medicine. May resume sexual activity in: 1-2 weeks Weight Bearing Status: Weight bearing as tolerated Call your doctor if you observe: Fever of 101 or Higher, Inability to urinate, Inability to have a bowel movement, Shortness of breath, Dizziness, Fainting spells, Chest pain, Uncontrolled pain Home Medications: Medications to take at Discharge Phenytoin Na [Dilantin] 200 mg PO BID 07/24/15 Nebulizer [Lc Star] 1 each UD #1 kit 07/25/15 Albuterol Aerosols [Ventolin Aerosols] 2.5 mg INHALATION Q2H PRN PRN #1 box 11/13/18 Albuterol Inhaler [Ventolin Hfa] 1 - 2 puff INHALATION Q4H PRN PRN #1 inhaler 11/13/18 Aspirin [Aspirin, Baby] 81 mg PO DAILY@0800 tab.chew 11/13/18 Ipratropium/Albuterol Sulfate [Duoneb] 3 ml INHALATION Q4H.RT #1 box 11/13/18 Prednisone 10 mg PO UD #30 tablet 11/13/18 Following Prescrptions Were Given to Patient: Albuterol Aerosols [Ventolin Aerosols] 2.5 mg INHALATION Q2H PRN PRN #1 box PRN Reason: dypsnea, wheezing Albuterol Inhaler [Ventolin Hfa] 1 - 2 puff INHALATION Q4H PRN PRN #1 inhaler PRN Reason: Sob &/Or Wheezing Ipratropium/Albuterol Sulfate [Duoneb] 3 ml INHALATION Q4H.RT #1 box Prednisone 10 mg PO UD #30 tablet Primary Care Physician: Tho Steen MD [Primary Care Provider] - Please follow up with your Primary Care Physician in: Follow-up in 3-5 days to review admission. Please Follow Up With: Carlos Maxwell DO When: Follow-up within 1-2 weeks for re-evaluation. Patient Instructions: What is COPD?, Chronic Lung Disease: Preventing Lung Infections, What Is Emphysema?, Resources for Chronic Lung Disease, Caring for Your Inhaler, Using an Inhaler Without a Spacer, Traveling with Oxygen, Using Oxygen Safely, Pursed-Lip Breathing, Why Do You Smoke?, Planning to Quit Smoking, Getting Support for Quitting Smoking, Coping with Smoking Withdrawal, Using a Nebulizer (Adult) Disposition: Home with Home Health Minutes spent on discharge:: 35 Patient Condition:: Stable Medical Necessity - Tobacco Use Smoking Status: Current every day smoker Meaningful Use Info Meaningful Use Diagnoses (Choose all that apply): None applicable Code Visit Inpatient E&M: 87529 Disch Hosp
--- NOTE | 2018-11-16 16:05 | CASEMGMT ---
PEARL MARTINEZ Discharge F/U Phone Call LACE: 10 Strata: 3 Discharge date: 11/13/18 Call date: 11/16/18 Call time: [id number] Duration: 4minutes Admission dx: COPD exac, resp failure Pt states has been doing 'pretty good' since discharge. Pt states no questions regarding discharge instructions/medications at this time. Pt states has f/u with PCP on 11/25 and pulmonology on 11/27. Pt states no suggestions for H at this time. Pt states that [facility] has been out to start care. Pt voices no further questions/concerns/needs at this time. S[place]en PEARL MARTINEZ
== END 2018-11-13 14:28 | disposition home or self-care (01) | DRG 189 ==
LOC: ED 02:04 → ICU 04:35 → PCU 11-12 07:17 → ICU 11-12 08:18
PROVIDERS: Admitting Provider Hospitalist; Emergency Provider Emergency Medicine; Family Provider Family Medicine; PCP Family Medicine; Visit Provider Family Medicine
DX: J96.01 Acute respiratory failure with hypoxia (principal); E43 Unspecified severe protein-calorie malnutrition; J44.1 Chronic obstructive pulmonary disease with (acute) exacerbation; I24.8 Other forms of acute ischemic heart disease; E87.2 Acidosis; J96.02 Acute respiratory failure with hypercapnia; J96.12 Chronic respiratory failure with hypercapnia; E78.5 Hyperlipidemia, unspecified; I10 Essential (primary) hypertension; G40.909 Epilepsy, unspecified, not intractable, without status epilepticus; F17.210 Nicotine dependence, cigarettes, uncomplicated; Z68.21 Body mass index [BMI] 21.0-21.9, adult; Z79.82 Long term (current) use of aspirin; Z79.899 Other long term (current) drug therapy; Z66 Do not resuscitate
CPT/HCPCS: 36415; 36600; 71045; 80048; 80061; 82803; 83605; 83735; 84484; 85025; 87040; 87070; 87205; 87633; 87804; 93005; 93306; 94002; 94003; 94640; 94667; 94668; 97110; 97116; 97162; 97166; 97530; 97802; 99285; 99406; J7050; A4216

== ENCOUNTER → 2018-12-21 12:30 | Outpatient (CLI) | payer MEDICARE, SELFPAY ==
[2018-12-10 09:17] VITALS: BMI 22.1
[2018-12-21 13:26] VITALS: PULSE 100; PULSE 105; PULSE 106; PULSE 116; PULSE 118; PULSE 96; PULSE 97; O2SAT 87; O2SAT 91; O2SAT 92; O2SAT 93; O2SAT 94; O2SAT 95
--- NOTE | 2018-12-21 13:29 | CPS ---
Patient came in on home portable tank at 3 lpm O2. Room Air SpO2, 93% sitting. Started testing on room air, by the second minute SpO2 87%. Placed patient on 3 lpm O2 for the rest of testing, SpO2 maintained above 90%. Patient took a very brief break during the 4th minute of testing and had to stop again with 25 seconds left in testing and did not restart.
--- NOTE | 2018-12-22 13:35 | PCM.PSN.6M ---
PSN 6 Minute Walk Test - 6 Minute Walk Test 6 Minute Walk Test: 6 Minute Walk Test PSN:6-Minute Walk Test Start: 12/21/18 13:25 Freq: Status: Active Protocol: [id number] Document 12/21/18 13:26 USMAN (Rec: 12/21/18 13:33 USMAN [id number]) 6 Minute Walk Test Date Performed 12/21/18 Time Performed 12:30 Height 6 ft Weight: 163 lb Weight in Pounds 163.[address]: Diane Harris Assistive device used: None Pre-test Oxygen Delivery Method Room Air Pulse Ox (%) 93 Pulse Rate (60-100 beats/min) 96 Dyspnea Marilee Scale (0-10) 0.5 Exertion [place] Scale (6-20) 6 1st minute Oxygen Delivery Method Room Air Pulse Ox (%) 91 Pulse Rate (60-100 beats/min) 116 H 2nd minute Oxygen Delivery Method Room Air Pulse Ox (%) 87 Pulse Rate (60-100 beats/min) 118 H 3rd minute Oxygen Flow Rate (L/min) (L/min) 3 Oxygen Delivery Method Nasal Cannula Pulse Ox (%) 94 Pulse Rate (60-100 beats/min) 97 4th minute Oxygen Flow Rate (L/min) (L/min) 3 Oxygen Delivery Method Nasal Cannula Pulse Ox (%) 94 Pulse Rate (60-100 beats/min) 100 Number of Rests Taken 1 5th minute Oxygen Flow Rate (L/min) (L/min) 3 Oxygen Delivery Method Nasal Cannula Pulse Ox (%) 92 Pulse Rate (60-100 beats/min) 106 H 6th minute Oxygen Flow Rate (L/min) (L/min) 3 Oxygen Delivery Method Nasal Cannula Pulse Ox (%) 92 Pulse Rate (60-100 beats/min) 105 H Dyspnea Marilee Scale (0-10) 5 Exertion Marilee Scale (6-20) 13 Number of Rests Taken 1 Post-test Oxygen Flow Rate (L/min) (L/min) 3 Oxygen Delivery Method Nasal Cannula Pulse Ox (%) 95 Pulse Rate (60-100 beats/min) 96 Full Laps Walked 8 Partial Lap, Number of Tiles Walked 10 Total Distance Walked (ft) 482 12/21/18 13:29 Cardiopulmonary Services by Ivette Kasper Patient came in on home portable tank at 3 lpm O2. Room Air SpO2, 93% sitting. Started testing on room air, by the second minute SpO2 87%. Placed patient on 3 lpm O2 for the rest of testing, SpO2 maintained above 90%. Patient took a very brief break during the 4th minute of testing and had to stop again with 25 seconds left in testing and did not restart. Initialized on 12/21/18 13:29 - END OF NOTE - Interpretation Interpretation: The patient ambulated 482 feet over the course of 6 minutes beginning on room air without assistive devices or breaks. Pretesting oxygen saturation was noted to be 93% on room air. With ambulation, the raven oxygen saturation was 87%. 3 L/min of supplemental oxygen was applied and the patient was able to complete the remainder of the test while maintaining appropriate oxygen saturations. - Recommendations Recommendations: 3 L/min of supplemental oxygen should be utilized with exertion.
== END ==
PROVIDERS: Family Provider Family Medicine; PCP Family Medicine; Referring Provider Nurse Practitioner Acute Care; Visit Provider Nurse Practitioner Acute Care
DX: J44.9 Chronic obstructive pulmonary disease, unspecified (principal)
CPT/HCPCS: 94618

== ENCOUNTER 2021-01-22 20:36 | Inpatient (IN) | payer MEDICARE, SELFPAY ==
[2018-12-10 09:17] VITALS: BMI 22.1
[2021-01-22] VITALS (7 sets, daily range): BP systolic 100–149; BP diastolic 76–91; PULSE 92–104; RESP 16–19; TEMP 36.7–36.9; O2SAT 97–100; BMI 18.8
--- NOTE | 2021-01-22 20:44 | RAD_ITS ---
STUDY: X-RAY CHEST REASON FOR EXAM: Male, 65 years old. dyspnea TECHNIQUE: Single AP portable view of the chest. COMPARISON: 11/11/2018 FINDINGS: There is hyperinflation of the lungs consistent with chronic obstructive lung disease (COPD). Lungs are clear. There is no demonstrated pleural abnormality. Moderate emphysema Normal size heart. Normal mediastinum and guru. Normal visualized pulmonary arteries. Normal visualized aortic arch and descending thoracic aorta. Normal visualized thoracic spine. Normal visualized ribs, clavicles, and shoulders. There is no demonstrated abnormality of the visualized soft tissue structures of the upper abdomen. RAD/Chest 1 View (Portable) IMPRESSION: No acute cardiopulmonary disease. COPD and emphysema is stable Electronically Signed: Emanuel Ascencio DO at 23:25 EDT Tel , Service support ,
--- NOTE | 2021-01-22 20:44 | EKG12_ITS ---
Test Reason : SOB Blood Pressure : / mmHG Vent. Rate : 101 BPM Atrial Rate : 101 BPM P-R Int : 112 ms QRS Dur : 082 ms QT Int : 340 ms P-R-T Axes : 090 -42 057 degrees QTc Int : 440 ms Sinus tachycardia Left axis deviation Abnormal ECG Confirmed by ELGIN GARCIA, LAW ([id number]), editorial project manager ERIC DOWNING ([id number]) on 01/26/2021 8:15:40 AM Referred By: Confirmed By:LAW EISENBERG MD
[2021-01-22 21:16] LABS: Absolute Lymphocyte Count 0.48 X10^3/uL (0.83-4.51); Absolute Neutrophil Count 6.5 X10^3/uL (2.0-7.7); Basophil# 0.05 X10^3/uL; Basophil% 0.7 % (0-1); Eosinophils% 1.3 % (0-5); Hematocrit 24.4 % (40-54); Hemoglobin 6.7 g/dL (13.0-16.5); Lymphocyte # 0.48 X10^3/ul (0.83-4.51); Lymphocyte % 6.4 % (19-41); Mean Corp Hgb Conc 27.5 g/dL (32-36); Mean Corpuscular Hgb 20.5 pg (27.0-32.0); Mean Corpuscular Volume 74.6 fL (80-94); Mean Platelet Vol. 10.6 fl (6.2-12.0); Monocyte# 0.43 X10^3/uL; Monocyte% 5.7 % (0-10); NRBC Flagged by Analyzer 0 % (0-5); Neutrophil # 6.45 X10^3/uL (2.7-7.7); Neutrophil % 85.5 % (47-70); POSITIVE DIFFERENTIAL YES; Platelet Count 255 K/mm3 (150-450); RBC Distribution Width CV 16.7 % (11.6-14.6); RBC Distribution Width SD 45.3 fl (35.1-43.9); Red Blood Count 3.27 M/mm3 (4.6-6.2); White Blood Count 7.5 K/mm3 (4.4-11.0)
[2021-01-22 21:17] LABS: Differential Indicated SCAN CRITERIA MET
[2021-01-22 21:34] LABS: ALB/GLOB Ratio 1.1 RATIO (0.9-2.4); AST(SGOT) 29 U/L (15-37); Alanine Aminotransfer ALT/SGPT 22 U/L (16-61); Alkaline Phosphatase 89 U/L (45-117); Anion Gap 9 (5-15); BUN 18 mg/dL (7-18); BUN/Creat Ratio 21.3 RATIO (10-20); Calcium,Total 8.8 mg/dL (8.5-10.1); Chloride 94 mmol/L (98-107); Creatinine, Serum 0.84 mg/dL (0.70-1.30); EST Glomerular Filtration Rate 97 mL/min (>60); Est Glom Filt Rate - Afr Amer 118 mL/min (>60); Estimated Creatinine Clearance 80.08 ml/min; Globulin 3.5 g/dL (2.2-4.2); Glucose 102 mg/dL (74-106); Potassium 4.9 mmol/L (3.5-5.1); Protein, Total 7.5 g/dL (6.4-8.2); Sodium Level 133 mmol/L (136-145)
[2021-01-22 21:35] LABS: International Normalized Ratio 1.2; Prothrombin Time (Protime)PT. 14.9 SECONDS (11.7-14.9)
[2021-01-22 21:36] LABS: Partial Thromboplast Time 30.5 Seconds (24.1-36.2)
[2021-01-22 21:47] LABS: Phenytoin (Dilantin) Level 3.3 mL (10.0-20.0)
[2021-01-22 21:51] LABS: Lactic Acid 2.8 mmol/L (0.4-1.9)
[2021-01-22 21:54] LABS: Differential Comment SCANNED
--- NOTE | 2021-01-22 21:59 | EDS_ITS ---
HPI History of Present Illness Chief Complaint: Shortness of Breath Informant: patient, family and EMS Narrative Narrative: 65-year-old male presents with several day history of progressive shortness of breath. Family states that his feet have been swollen for some time but have markedly worsened in the past week. They state that he has not been caring for himself pretty much not moving. He states that he urinates and bottles. He is on home oxygen about 3 L normally. He denies any black or bloody stools. He notes he is on Dilantin for seizure disorder. Family notes that he appears pale. They note that he is covered in bugs in his room has significant mount of bugs in it. They state that they have been wanting to place him in a fci because of the fact he is not caring for himself. He states that his eating has tapered off. He states he has been losing weight. He is a former smoker and has a history of alcoholism but has not been drinking. [facility] Medical History (Updated 01/22/21 @ 22:[address] Maximus Galindo, ) Acute hypoxemic respiratory failure Chronic hypercapnic respiratory failure Collapsed lung COPD (chronic obstructive pulmonary disease) COPD with acute exacerbation Hyperlipidemia Hypertension Seizure disorder Home Medications phenytoin sodium extended 200 mg PO BID 07/24/15 [History Last Taken Unknown] nebulizers #1 kit 07/25/15 [Rx Last Taken Unknown] ipratropium 0.5 mg-albuterol 3 mg (2.5 mg base)/3 mL nebulization soln 3 ml INHALATION Q4H.RT #180 ml 12/10/18 [Rx Last Taken Unknown] albuterol sulfate 2.5 mg INHALATION Q2H PRN PRN #180 ml 08/16/19 [Rx Last Taken Unknown] albuterol sulfate 90 mcg/actuation aerosol inhaler 1 - 2 puff INHALATION Q4H PRN PRN #1 inhaler 08/16/19 [Rx Last Taken Unknown] ipratropium 20 mcg-albuterol 100 mcg/actuation mist for inhalation 1 puff INHALATION Q6H #4 g 08/16/19 [Rx Last Taken Unknown] Allergy/AdvReac Type Severity Reaction Status Date / Time codeine AdvReac Nausea Verified 01/22/21 20:43 Family History Mother Lung disease Father Heart disease Social History Smoking Status: Former smoker Tobacco: How many years used: 50 ROS ROS ED Constitutional Constitutional ED: Reports weight loss; Denies chills Eyes Eyes: Denies change in vision or diplopia ENT ENT ED: Denies ear pain, rhinorrhea or sore throat Cardiovascular Cardiovascular: Denies chest pain, orthopnea, palpitations or racing heartbeat Respiratory/Chest Respiratory/Chest: Reports cough and dyspnea; Denies orthopnea Gastrointestinal Gastrointestinal: Denies abdominal pain, diarrhea, nausea or vomiting Genitourinary Genitourinary ED: Denies dysuria, hematuria or urinary frequency Musculoskeletal Musculoskeletal: Denies arthralgias or myalgias Integumentary Reports other Details: Family reports him being pale ; Denies abscess or rash Neurologic Neurologic: Reports weakness; Denies headache(s) Psychiatric Psychiatric: Denies anxiety, depression, suicidal ideation or suicidal thoughts Endocrine Endocrinology: Denies polydipsia, polyphagia or polyuria Allergic/Immunologic Allergic/Immunologic ED: Denies mouth swelling, tongue swelling or urticaria EXAM Physical Exam Const Vital Signs: 01/22/21 20:37 01/22/21 20:44 01/22/21 20:56 Temperature 98.1 F Temperature Source Temporal Pulse Rate 104 H Respiratory Rate 16 Respiratory Effort Short of Breath Labored Respiratory Pattern Tachypnea Blood Pressure 147/84 H Blood Pressure Mean 105 Pulse Ox 100 97 Oxygen Delivery Method Non-Rebreather Nasal Cannula Oxygen Flow Rate (L/min) 6 4 01/22/21 22:08 Temperature 98.1 F Temperature Source Temporal Pulse Rate 96 Respiratory Rate 18 Respiratory Effort Respiratory Pattern Blood Pressure 149/88 H Blood Pressure Mean 108 Pulse Ox 100 Oxygen Delivery Method Nasal Cannula Oxygen Flow Rate (L/min) 4 Positive well developed and unkempt General Appearance ED: unkempt, well developed and other Patient appears to have stool or dirt caked to his lower extremities. HEENT Reports normocephalic, head/scalp atraumatic and moist mucous membranes Eyes PERRL and EOMs intact bilaterally Neck no lymphadenopathy, supple and no JVD Resp clear to auscultation bilaterally Resp Narrative: Patient appears tachypneic Cardio regular rate and no murmurs Rate: tachycardic GI normal to inspection, nondistended, normoactive bowel sounds and non-tender Palpation: soft Narrative: Rectal exam shows soft light brown stool Back/Spine no CVA tenderness and normal ROM Extremity normal to inspection Extremity Narrative: There is significant swelling of the bilateral feet and lower legs to the level of the tibial tuberosity General Extremety ED: Yes edema General Extremity: edema Neuro oriented x3 and CN's II-XII intact bilaterally Sensorium / Orientation: alert Motor Exam: strength 5/5 throughout Psych mental status grossly normal Appearance: unkempt Mood & Affect: depressed; Negative for tearful Skin no rashes or lesions noted and no wounds MDM MDM MDM Narrative Medical decision making narrative: Patient is significantly anemic 6.7. This is down 7-1/2 g from his last hemoglobin which was in 2019. Creatinine normal. Electrolytes show sodium of 133. Troponin negative. Lactic acid is elevated at 2.8. I suspect this is due to his degree of hypoxemia. EMS noted that he was 83% on his 3 L at home. Patient was typed and screened and then typed and crossed for 2 units. Lab Data Attestation: I reviewed the patient's lab results. Labs: Laboratory Results - last 24 hr 01/22/21 01/22/21 01/22/21 21:00 21:00 21:00 WBC 7.5 RBC 3.27 L Hgb 6.7 L Hct 24.4 L MCV 74.6 L MCH 20.5 L MCHC 27.5 L RDW Std Deviation 45.3 H RDW Coeff of Popeye 16.7 H Plt Count 255 MPV 10.6 Immature Gran % (Auto) 0.400 Neut % (Auto) 85.5 H Lymph % (Auto) 6.4 L [place] % (Auto) 5.7 Eos % (Auto) 1.3 Baso % (Auto) 0.7 Absolute Neuts (auto) 6.5 Absolute Lymphs (auto) 0.48 L Nucleated RBC % 0 Differential Comment SCANNED PT 14.9 INR 1.2 APTT 30.5 Sodium 133 L Potassium 4.9 Chloride 94 L Carbon Dioxide 30.0 Anion Gap 9 BUN 18 Creatinine 0.84 Estim Creat Clear Calc 80.08 Est GFR (MDRD) Af Amer 118 Est GFR (MDRD) Non-Af 97 BUN/Creatinine Ratio 21.3 H Glucose 102 Lactic Acid Calcium 8.8 Total Bilirubin 0.50 AST 29 ALT 22 Alkaline Phosphatase 89 Troponin I < 0.015 Total Protein 7.5 Albumin 4.0 Globulin 3.5 Albumin/Globulin Ratio 1.1 Urine Color Urine Clarity Urine pH Ur Specific [place] Urine Protein Urine Glucose (UA) Urine Ketones Urine Occult Blood Urine Nitrite Urine Bilirubin Urine Urobilinogen Ur Leukocyte Esterase Urine RBC Urine WBC Ur Squamous Epith Cells Amorphous Sediment Urine Bacteria Urine Mucus Phenytoin Blood Type A1 Antigen Typing Rho(D) Type Antibody Screen Crossmatch 01/22/21 01/22/21 01/22/21 21:00 21:00 21:00 WBC RBC Hgb Hct MCV MCH MCHC RDW Std Deviation RDW Coeff of Pope[place] Plt Count MPV Immature Gran % (Auto) Neut % (Auto) Lymph % (Auto) [place] % (Auto) Eos % (Auto) Baso % (Auto) Absolute Neuts (auto) Absolute Lymphs (auto) Nucleated RBC % Differential Comment PT INR APTT Sodium Potassium Chloride Carbon Dioxide Anion Gap BUN Creatinine Estim Creat Clear Calc Est GFR (MDRD) Af Amer Est GFR (MDRD) Non-Af BUN/Creatinine Ratio Glucose Lactic Acid 2.8 H* Calcium Total Bilirubin AST ALT Alkaline Phosphatase Troponin I Total Protein Albumin Globulin Albumin/Globulin Ratio Urine Color Urine Clarity Urine pH Ur Specific [place] Urine Protein Urine Glucose (UA) Urine Ketones Urine Occult Blood Urine Nitrite Urine Bilirubin Urine Urobilinogen Ur Leukocyte Esterase Urine RBC Urine WBC Ur Squamous Epith Cells Amorphous Sediment Urine Bacteria Urine Mucus Phenytoin 3.3 L Blood Type Cancelled A1 Antigen Typing Cancelled Rho(D) Type Cancelled Antibody Screen Cancelled Crossmatch 01/22/21 01/22/21 21:45 22:05 WBC RBC Hgb Hct MCV MCH MCHC RDW Std Deviation RDW Coeff of [place] Plt Count MPV Immature Gran % (Auto) Neut % (Auto) Lymph % (Auto) [place] % (Auto) Eos % (Auto) Baso % (Auto) Absolute Neuts (auto) Absolute Lymphs (auto) Nucleated RBC % Differential Comment PT INR APTT Sodium Potassium Chloride Carbon Dioxide Anion Gap BUN Creatinine Estim Creat Clear Calc Est GFR (MDRD) Af Amer Est GFR (MDRD) Non-Af BUN/Creatinine Ratio Glucose Lactic Acid Calcium Total Bilirubin AST ALT Alkaline Phosphatase Troponin I Total Protein Albumin Globulin Albumin/Globulin Ratio Urine Color Yellow Urine Clarity Sl. Cloudy Urine pH 5.0 Ur Specific [place] 1.025 Urine Protein 30 H Urine Glucose (UA) Normal Urine Ketones 50 H Urine Occult Blood 10 H Urine Nitrite Negative Urine Bilirubin Negative Urine Urobilinogen Normal Ur Leukocyte Esterase Negative Urine RBC 0-5 SEEN Urine WBC 0-5 SEEN Ur Squamous Epith Cells 0-5 SEEN Amorphous Sediment 1+ URATE Urine Bacteria 0 SEEN Urine Mucus RARE Phenytoin Blood Type A1 Antigen Typing Rho(D) Type Antibody Screen Crossmatch See Detail EKG Initial EKG: Attestation: I personally reviewed and interpreted this EKG as follows: Comments: EKG demonstrates a sinus tachycardia at a rate of 101. Discharge Plan Dx/Rx/DC Orders Clinical Impression: COPD (chronic obstructive pulmonary disease), Acute hypoxemic respiratory failure, Anemia requiring transfusions, Adult failure to thrive, Elevated lactic acid level Disposition Disposition: Acute Care [facility]
[2021-01-22 22:10] LABS: Bacteria 0 SEEN /hpf (None Seen)
[2021-01-22 22:12] LABS: Color, Urine Yellow (Yellow); Glucose, Dipstick Normal (Normal); Ketone-Dipstick 50 mg/dl (Negative); Leukocyte Esterase-Dipstick Negative /ul (Negative); Nitrite-Dipstick Negative (Negative); Occult Blood-Urine 10 /ul (Negative); Protein-Dipstick 30 mg/dl (Negative); Specific Gravity, Urine 1.025 (1.002-1.030); Urine Bilirubin Dipstick Negative (Negative); Urine Clarity Sl. Cloudy (Clear); Urine Urobilinogen Normal (Normal)
[2021-01-22 22:18] LABS: Amorphous Sediment 1+ URATE; Mucous, Urine RARE /hpf (<or=2+); Red Blood Cells-Urine 0-5 SEEN /hpf (0-5); Squamous Epithelial Cells - UA 0-5 SEEN /hpf (0-5); White Blood Cells 0-5 SEEN /hpf (0-5)
[2021-01-22 23:25] LABS: Ferritin 6 ng/mL (26-388); Iron 11 ug/dL (65-175); Iron Binding Capacity,Total 424 ug/dL (250-450)
--- NOTE | 2021-01-22 23:25 | HP.PCM_ITS ---
Documented by User: Shayy Barros NP-C 01/22/21 23:47 HPI - General General Date of Admission: 01/22/21 HPI Narrative MAMI CHAPMAN, is a 65 M who presents with shortness of breath. Patient states that his shortness of breath is increasingly gotten worse over the past couple weeks. Patient currently on 3 L home O2 for COPD however EMS reports patient pulse ox 84% upon arrival. Patient currently on 5 L nasal cannula in ED pulse ox 100%. Patient denies feeling ill however reports general weakness. Patient son voiced concerns regarding patient's ability to care for himself as he is not eating appropriately and does not leave his chair. Patient son also reports that patient urinates and bottles as to not have to get up to go the bathroom. Family had been considering putting patient in a facility however patient refuses to go. [facility] Medical History Acute hypoxemic respiratory failure Chronic hypercapnic respiratory failure Collapsed lung COPD (chronic obstructive pulmonary disease) COPD with acute exacerbation Hyperlipidemia Hypertension Seizure disorder Home Medications phenytoin sodium extended 200 mg PO BID 07/24/15 [History Last Taken Unknown] nebulizers #1 kit 07/25/15 [Rx Last Taken Unknown] ipratropium 0.5 mg-albuterol 3 mg (2.5 mg base)/3 mL nebulization soln 3 ml INHALATION Q4H.RT #180 ml 12/10/18 [Rx Last Taken Unknown] albuterol sulfate 2.5 mg INHALATION Q2H PRN PRN #180 ml 08/16/19 [Rx Last Taken Unknown] albuterol sulfate 90 mcg/actuation aerosol inhaler 1 - 2 puff INHALATION Q4H PRN PRN #1 inhaler 08/16/19 [Rx Last Taken Unknown] ipratropium 20 mcg-albuterol 100 mcg/actuation mist for inhalation 1 puff INHALATION Q6H #4 g 08/16/19 [Rx Last Taken Unknown] Allergy/AdvReac Type Severity Reaction Status Date / Time codeine AdvReac Nausea Verified 01/22/21 20:43 Family History Mother Lung disease Father Heart disease Social History Smoking Status: Former smoker Tobacco: How many years used: 50 ROS Constitutional Constitutional: Reports malaise, weakness and weight loss; Denies anorexia, chills or fever(s) Cardiovascular Cardiovascular: Denies chest pain, edema or palpitations Respiratory/Chest Respiratory/Chest: Reports pale skin, portable oxygen @ home, shortness of breath at rest, shortness of breath with exertion and tachypnea; Denies cough Gastrointestinal Gastrointestinal: Denies abdominal pain, constipation, diarrhea, nausea or vomiting Genitourinary Genitourinary: Denies dysuria Musculoskeletal Musculoskeletal: Denies back pain, extremity pain, joint pain or joint stiffness Integumentary Integumentary: Reports dry skin Neurologic Neurologic: Denies abnormal gait, abnormal speech, confusion or dizziness Psychiatric Psychiatric: Denies anxiety or depression Endocrine Endocrinology: Denies change in body appearance Hematologic/Lymphatic Hematologic/Lymphatic: Denies easy bleeding or easy bruising Vital Signs Vital Signs Vital Signs: 01/22/21 20:37 01/22/21 20:44 01/22/21 20:56 Temperature 98.1 F Temperature Source Temporal Pulse Rate 104 H Respiratory Rate 16 Respiratory Effort Short of Breath Labored Respiratory Pattern Tachypnea Blood Pressure 147/84 H Blood Pressure Mean 105 Pulse Ox 100 97 Oxygen Delivery Method Non-Rebreather Nasal Cannula Oxygen Flow Rate (L/min) 6 4 01/22/21 22:08 01/22/21 22:44 01/22/21 22:56 Temperature 98.1 F 98.1 F 98.1 F Temperature Source Temporal Temporal Temporal Pulse Rate 96 92 92 Respiratory Rate 18 19 H 19 H Respiratory Effort Respiratory Pattern Blood Pressure 149/88 H 100/76 100/76 Blood Pressure Mean 108 84 84 Pulse Ox 100 100 100 Oxygen Delivery Method Nasal Cannula Nasal Cannula Nasal Cannula Oxygen Flow Rate (L/min) 4 4 4 Weight Weight: 138 lb 10.732 oz Body Mass Index (BMI) 18.8 Physical Exam Const alert and oriented x3 General Appearance: cooperative and disheveled HEENT normocephalic and head/scalp atraumatic Eyes PERRL Neck supple, no JVD and thyroid normal General: trachea midline Lymph Lymphatic: no lymphadenopathy noted Resp Effort and Inspection: symmetric chest movement, tachypneic and labored Auscultation: diminished lung sounds Cardio regular rate, regular rhythm, S1 normal heart sound and S2 normal heart sound GI normal to inspection, nondistended, normoactive bowel sounds, soft to palpation and non-tender Extremity General Extremity: edema bilateral lower extremity Details: severe Peripheral Pulses: Yes pulses 2+ throughout Skin General Skin Exam: no breakdown and turgor normal Lesions: no lesions Rashes: no rashes Neuro CN's II-XII intact bilaterally Psych thought process normal, cooperative and affect normal Appearance: appropriate Results Lab / Micro Data Result Diagrams: 01/22/21 21:00 01/22/21 21:00 Labs: Laboratory Results - last 24 hr 01/22/21 01/22/21 01/22/21 21:00 21:00 21:00 WBC 7.5 RBC 3.27 L Hgb 6.7 L Hct 24.4 L MCV 74.6 L MCH 20.5 L MCHC 27.5 L RDW Std Deviation 45.3 H RDW Coeff of Popeye 16.7 H Plt Count 255 MPV 10.6 Immature Gran % (Auto) 0.400 Neut % (Auto) 85.5 H Lymph % (Auto) 6.4 L [place] % (Auto) 5.7 Eos % (Auto) 1.3 Baso % (Auto) 0.7 Absolute Neuts (auto) 6.5 Absolute Lymphs (auto) 0.48 L Nucleated RBC % 0 Differential Comment SCANNED PT 14.9 INR 1.2 APTT 30.5 Sodium 133 L Potassium 4.9 Chloride 94 L Carbon Dioxide 30.0 Anion Gap 9 BUN 18 Creatinine 0.84 Estim Creat Clear Calc 80.08 Est GFR (MDRD) Af Amer 118 Est GFR (MDRD) Non-Af 97 BUN/Creatinine Ratio 21.3 H Glucose 102 Lactic Acid Calcium 8.8 Iron TIBC Ferritin Total Bilirubin 0.50 AST 29 ALT 22 Alkaline Phosphatase 89 Troponin I < 0.015 Total Protein 7.5 Albumin 4.0 Globulin 3.5 Albumin/Globulin Ratio 1.1 Urine Color Urine Clarity Urine pH Ur Specific [place] Urine Protein Urine Glucose (UA) Urine Ketones Urine Occult Blood Urine Nitrite Urine Bilirubin Urine Urobilinogen Ur Leukocyte Esterase Urine RBC Urine WBC Ur Squamous Epith Cells Amorphous Sediment Urine Bacteria Urine Mucus Phenytoin Blood Type A1 Antigen Typing Rho(D) Type Antibody Screen Crossmatch 01/22/21 01/22/21 01/22/21 21:00 21:00 21:00 WBC RBC Hgb Hct MCV MCH MCHC RDW Std Deviation RDW Coeff of Popeye Plt Count MPV Immature Gran % (Auto) Neut % (Auto) Lymph % (Auto) [place] % (Auto) Eos % (Auto) Baso % (Auto) Absolute Neuts (auto) Absolute Lymphs (auto) Nucleated RBC % Differential Comment PT INR APTT Sodium Potassium Chloride Carbon Dioxide Anion Gap BUN Creatinine Estim Creat Clear Calc Est GFR (MDRD) Af Amer Est GFR (MDRD) Non-Af BUN/Creatinine Ratio Glucose Lactic Acid 2.8 H* Calcium Iron TIBC Ferritin Total Bilirubin AST ALT Alkaline Phosphatase Troponin I Total Protein Albumin Globulin Albumin/Globulin Ratio Urine Color Urine Clarity Urine pH Ur Specific [place] Urine Protein Urine Glucose (UA) Urine Ketones Urine Occult Blood Urine Nitrite Urine Bilirubin Urine Urobilinogen Ur Leukocyte Esterase Urine RBC Urine WBC Ur Squamous Epith Cells Amorphous Sediment Urine Bacteria Urine Mucus Phenytoin 3.3 L Blood Type Cancelled A1 Antigen Typing Cancelled Rho(D) Type Cancelled Antibody Screen Cancelled Crossmatch 01/22/21 01/22/21 01/22/21 21:00 21:45 21:45 WBC RBC Hgb Hct MCV MCH MCHC RDW Std Deviation RDW Coeff of Popeye Plt Count MPV Immature Gran % (Auto) Neut % (Auto) Lymph % (Auto) [place] % (Auto) Eos % (Auto) Baso % (Auto) Absolute Neuts (auto) Absolute Lymphs (auto) Nucleated RBC % Differential Comment PT INR APTT Sodium Potassium Chloride Carbon Dioxide Anion Gap BUN Creatinine Estim Creat Clear Calc Est GFR (MDRD) Af Amer Est GFR (MDRD) Non-Af BUN/Creatinine Ratio Glucose Lactic Acid Calcium Iron 11 L TIBC 424 Ferritin 6 L Total Bilirubin AST ALT Alkaline Phosphatase Troponin I Total Protein Albumin Globulin Albumin/Globulin Ratio Urine Color Urine Clarity Urine pH Ur Specific [place] Urine Protein Urine Glucose (UA) Urine Ketones Urine Occult Blood Urine Nitrite Urine Bilirubin Urine Urobilinogen Ur Leukocyte Esterase Urine RBC Urine WBC Ur Squamous Epith Cells Amorphous Sediment Urine Bacteria Urine Mucus Phenytoin Blood Type O POSITIVE A1 Antigen Typing Rho(D) Type Antibody Screen NEGATIVE Crossmatch See Detail 01/22/21 22:05 WBC RBC Hgb Hct MCV MCH MCHC RDW Std Deviation RDW Coeff of Popeye Plt Count MPV Immature Gran % (Auto) Neut % (Auto) Lymph % (Auto) [place] % (Auto) Eos % (Auto) Baso % (Auto) Absolute Neuts (auto) Absolute Lymphs (auto) Nucleated RBC % Differential Comment PT INR APTT Sodium Potassium Chloride Carbon Dioxide Anion Gap BUN Creatinine Estim Creat Clear Calc Est GFR (MDRD) Af Amer Est GFR (MDRD) Non-Af BUN/Creatinine Ratio Glucose Lactic Acid Calcium Iron TIBC Ferritin Total Bilirubin AST ALT Alkaline Phosphatase Troponin I Total Protein Albumin Globulin Albumin/Globulin Ratio Urine Color Yellow Urine Clarity Sl. Cloudy Urine pH 5.0 Ur Specific [place] 1.025 Urine Protein 30 H Urine Glucose (UA) Normal Urine Ketones 50 H Urine Occult Blood 10 H Urine Nitrite Negative Urine Bilirubin Negative Urine Urobilinogen Normal Ur Leukocyte Esterase Negative Urine RBC 0-5 SEEN Urine WBC 0-5 SEEN Ur Squamous Epith Cells 0-5 SEEN Amorphous Sediment 1+ URATE Urine Bacteria 0 SEEN Urine Mucus RARE Phenytoin Blood Type A1 Antigen Typing Rho(D) Type Antibody Screen Crossmatch Micro: Microbiology 01/22/21 22:00 Stool Occult Blood (ANTONI) - Final Stool 01/22/21 21:00 SARS-CoV-2 Antigen (Rapid) - Final Mucosa - Nose Assessment & Plan Assessment/Plan (1) Acute hypoxemic respiratory failure: (2) Anemia requiring transfusions: (3) Adult failure to thrive: PLAN: 1. Acute hypoxemic respiratory failure -Likely secondary to acute anemia -Admit to [facility] with telemetry for blood transfusion -Oxygen per protocol, currently on 5 L nasal cannula. Home O2 dose is 3 L nasal cannula -DuoNeb nebulizer treatments every 4 hours while awake along with albuterol every 2 as needed ordered. -Solu-Medrol 125 mg x 1 ordered 2. Anemia requiring transfusions -Hemoglobin 6.7, patient typed and crossed in ER -2 units PRBCs ordered -Iron studies ordered along with LDH and haptoglobin -Occult stool x2, initial negative in ER 3. Adult failure to thrive -Family and patient report decreased food and water intake -Patient reports not completing activities of daily living -PT and OT to eval and treat -Case management consulted for coordination of discharge, likely to SNF 4. COPD -We will continue nebulizer treatments of ipratropium and albuterol every 4 hours while awake and as needed albuterol nebulizer treatments 5. Seizures -Stable, continue phenytoin. 6. Severe calorie protein malnutrition due to decreased intake -Dietitian consulted DVT prophylaxis-SCDs only, no pharmacological prophylaxis indicated due to unknown source of bleeding This patient was seen by ROBIN Diaz under the supervision of Dr. Cade. Documented by User: Dr. Ebenezer Cade MD 01/22/21 23:58 HPI - General General Date of Admission: 01/22/21 [facility] Medical History Acute hypoxemic respiratory failure Chronic hypercapnic respiratory failure Collapsed lung COPD (chronic obstructive pulmonary disease) COPD with acute exacerbation Hyperlipidemia Hypertension Seizure disorder Home Medications phenytoin sodium extended 200 mg PO BID 07/24/15 [History Last Taken Unknown] nebulizers #1 kit 07/25/15 [Rx Last Taken Unknown] ipratropium 0.5 mg-albuterol 3 mg (2.5 mg base)/3 mL nebulization soln 3 ml INHALATION Q4H.RT #180 ml 12/10/18 [Rx Last Taken Unknown] albuterol sulfate 2.5 mg INHALATION Q2H PRN PRN #180 ml 08/16/19 [Rx Last Taken Unknown] albuterol sulfate 90 mcg/actuation aerosol inhaler 1 - 2 puff INHALATION Q4H PRN PRN #1 inhaler 08/16/19 [Rx Last Taken Unknown] ipratropium 20 mcg-albuterol 100 mcg/actuation mist for inhalation 1 puff INHALATION Q6H #4 g 08/16/19 [Rx Last Taken Unknown] Allergy/AdvReac Type Severity Reaction Status Date / Time codeine AdvReac Nausea Verified 01/22/21 20:43 Family History Mother Lung disease Father Heart disease Social History Smoking Status: Former smoker Tobacco: How many years used: 50 Results Lab / Micro Data Result Diagrams: 01/22/21 21:00 01/22/21 21:00 Charges/Coding Addendum Addendum: Patient was seen and examined independently. I agree with assessment and plan by ROBIN Brothers. Patient is a 65-year-old male with a significant history of COPD on 3 L of home oxygen who reports progressively worsening shortness of breath that has been going on for a while and equal to the point where he could not take it anymore. Associated with symptoms is productive cough. Affect is from report that he is unable to take of himself. Emergent department doctor reported that on presentation patient had dirt/stool on his body. Reportedly paramedics attempted to give patient a breathing treatment . However patient was too weak even to do the breathing treatment. His hemoglobin was significant drop from previous. Emergency Department doctor that a digital rectal exams was unremarkable and patient had brown stool which was negative for blood. Physical examination Alert and oriented x3. Heart sounds S1-S2 present Lungs:Tachypnea; increased work of breathing. Lungs diminished with mild wheezes. Abdomen scaphoid, bowel sounds present, soft nontender nondistended. Extremity: Cachectic. With 4+ lower extremity edema. Acute on chronic respiratory insufficiency Likely multifactorial from COPD and anemia. Anemia work-up and treatment as below. Solu-Medrol 125 mg x 1. [id number] DuoNeb ordered. Acute microcytic anemia Hemoglobin presentation was 6.7. Review of labs showed 2 years ago his hemoglobin was 14.0; 14.3 and 16.2. Discussed emergency department doctor who will order iron panel, ferritin, vitamin B12, and folic acid. Will check LDH and haptoglobin. Repeat occult stools. Check BMP. 2 units of packed red blood cells ordered to be transfused emergency department. CBC in a.m. Severe protein calorie malnutrition Patient is cachectic. BMI 18.8 kg/m2. Ensure Enlive ordered. Nutrition consult. Bilateral lower extremity edema BNP ordered. Check Doppler of bilateral lower extremity. DVT prophylaxis: SCD ordered. Will avoid chemical chemoprophylaxis at this time secondary to anemia. Visit Charges Inpatient E&M: 14862 Init Hosp L3
[2021-01-22 23:31] LABS: Platelet Count 255 K/mm3 (150-450); RET-HE 19.9 pg (30-35); Reticulocyte Count 1.91 % (0.5-1.5)
[2021-01-22 23:41] LABS: Vitamin B12 384 pg/mL (211-911)
[2021-01-23] VITALS (22 sets, daily range): BP systolic 106–157; BP diastolic 59–87; PULSE 77–104; RESP 16–28; TEMP 36.7–37.3; O2SAT 94–100; BMI 18.1; BMI 18.0
--- NOTE | 2021-01-23 00:15 | VDLE_ITS ---
Reason For Study: swelling RIGHT LEFT GSV is normal. GSV is normal. CFV is compressible, spontaneous, phasic, CFV is compressible, spontaneous, phasic, competent and demonstrates normal competent, and demonstrates normal augmentation. augmentation. FV is compressible, spontaneous, phasic, FV is compressible, spontaneous, phasic, competent and demonstrates normal competent and demonstrates normal augmentation. augmentation. POP V is compressible, spontaneous, phasic, POP V is compressible, spontaneous, phasic, competent and demonstrates normal competent and demonstrates normal augmentation. augmentation. T/P Trunk is compressible. T/P Trunk is compressible. PTV is compressible. PTV is compressible. RT PerV is compressible. LT PerV is compressible. Procedure This is a venous duplex using B-mode, color flow and spectral Doppler. Exam performed portable in patient room. The exam was of fair technical quality due to pt being agitated. A preliminary report was called and/or faxed to Delilah KANG. VL/Venous Duplex US - Kali Extrem Interpretation Summary No evidence for acute deep venous thrombosis bilateral lower extremities with p atent and compressible bilateral great saphenous veins. Technically fair quality noted. Ordering Physician: Shayy Barros Performed By: Teo Samaniego RVT
--- NOTE | 2021-01-23 00:31 | NURSING ---
Respiratory therapy called for evaluation. Pt is currently on 4L via n/c and is barely able to talk. They will come evaluate.
[2021-01-23 00:48] LABS: LDH 209 U/L (87-241)
[2021-01-23] MEDS: 0.9% Saline Lock 10 ML Syringe IV ×7 (00:48→15:25)
[2021-01-23] MEDS: MethylPREDNISolone 125 MG/2 ML Vial IV (00:48)
[2021-01-23] MEDS: Albuterol 2.5 MG/3 ML VIAL.NEB. INHALATION (00:56)
[2021-01-23 01:18] LABS: Reflex Lactate? Y
--- NOTE | 2021-01-23 01:32 | CPS ---
Pt. was started on aerosol breathing tx.'s, but pt. after a brief moment of taking the tx., pt. dropped nebulizer and stated that he was unable to breathe doing it.
[2021-01-23 02:08] LABS: Lactic Acid 1.7 mmol/L (0.4-1.9)
[2021-01-23 07:08] LABS: Absolute Neutrophil Count 7.9 X10^3/uL (2.0-7.7); Basophil# 0.02 X10^3/uL; Basophil% 0.2 % (0-1); Hematocrit 28.6 % (40-54); Hemoglobin 8.7 g/dL (13.0-16.5); Lymphocyte % 3.6 % (19-41); Mean Corp Hgb Conc 30.4 g/dL (32-36); Mean Corpuscular Hgb 23.6 pg (27.0-32.0); Mean Corpuscular Volume 77.5 fL (80-94); Mean Platelet Vol. 10.2 fl (6.2-12.0); Monocyte# 0.17 X10^3/uL; NRBC Flagged by Analyzer 0 % (0-5); Neutrophil # 7.88 X10^3/uL (2.7-7.7); Neutrophil % 93.7 % (47-70); POSITIVE DIFFERENTIAL YES; Platelet Count 210 K/mm3 (150-450); RBC Distribution Width CV 17.7 % (11.6-14.6); RBC Distribution Width SD 48.2 fl (35.1-43.9); Red Blood Count 3.69 M/mm3 (4.6-6.2); White Blood Count 8.4 K/mm3 (4.4-11.0)
[2021-01-23 07:12] LABS: Differential Indicated SCAN CRITERIA MET
--- NOTE | 2021-01-23 07:18 | CPS ---
Pt refused aerosol, he is tachypneic but Sat is 100%. Talked w/pt but he still refused aerosol.
[2021-01-23 07:32] LABS: Anisocytosis 1+; Microcytosis 1+
[2021-01-23 07:33] LABS: Hypochromasia 3+; Platelet Estimate ADEQUATE (ADEQ)
[2021-01-23 07:44] LABS: ALB/GLOB Ratio 1.1 RATIO (0.9-2.4); AST(SGOT) 31 U/L (15-37); Alanine Aminotransfer ALT/SGPT 21 U/L (16-61); Albumin, Serum 3.8 g/dL (3.2-5.0); Alkaline Phosphatase 86 U/L (45-117); Anion Gap 10 (5-15); BUN 20 mg/dL (7-18); BUN/Creat Ratio 24.3 RATIO (10-20); Calcium,Total 8.6 mg/dL (8.5-10.1); Chloride 96 mmol/L (98-107); Creatinine, Serum 0.82 mg/dL (0.70-1.30); EST Glomerular Filtration Rate 101 mL/min (>60); Est Glom Filt Rate - Afr Amer 122 mL/min (>60); Estimated Creatinine Clearance 78.51 ml/min; Globulin 3.4 g/dL (2.2-4.2); Glucose 148 mg/dL (74-106); Potassium 4.9 mmol/L (3.5-5.1); Protein, Total 7.2 g/dL (6.4-8.2); Sodium Level 132 mmol/L (136-145)
--- NOTE | 2021-01-23 09:27 | ECHOD_ITS ---
Reason For Study: CHF Procedure This was a 2D Doppler, Color Flow transthoracic echocardiogram. Exam performed portable in patient room. Left Ventricle Normal LV size. Left ventricular systolic function is normal. The estimated ejection fraction is 65 %. No evidence for diastolic dysfunction. No regional wall motion abnormalities noted. Right Ventricle Normal RV size. Normal systolic function. Atria Normal left atrium. Normal right atrium. No doppler evidence for ASD. Mitral Valve There is no mitral annular calcification. Mild diffuse mitral valve thickening. Trivial mitral valve insufficiency. Tricuspid Valve Normal tricuspid valve. Trivial tricuspid valve insufficiency. Right ventricular systolic pressure estimated to be 34 mmHg. Aortic Valve Trisinus/trileaflet aortic valve. Normal aortic valve. Pulmonic Valve The pulmonic valve is not well visualized. Great Vessels The aortic root is not well visualized. Pericardium/Pleural No pericardial effusion. MMode/2D Measurements & Calculations LVIDd: 4.1 cm IVSd: 0.87 cm LA dimension: 2.5 cm LVIDs: 2.6 cm LVPWd: 1.0 cm FS: 36.1 % LAV(MOD-sp4): 28.0 ml LA A4 area: 13.5 cm2 Time Measurements MV dec time: 0.18 sec Doppler Measurements & Calculations MV E max martin: 68.0 cm/sec Lat Peak E' Martin: 11.7 cm/sec Med Peak E' Martin: 10.7 cm/sec MV A max martin: 90.8 cm/sec E/E' lat: 5.8 E/E' med: 6.3 MV E/A: 0.75 MV V2 max: 92.7 cm/sec MV P1/2t max martin: 71.2 cm/sec Ao V2 max: 160.9 cm/sec MV max P.4 mmHg MV P1/2t: 66.6 msec Ao max P.4 mmHg MV V2 mean: 47.1 cm/sec MV dec slope: 313.0 cm/sec2 MV mean P.0 mmHg MVA(P1/2t): 3.3 cm2 MV V2 VTI: 19.6 cm LV V1 max: 123.4 cm/sec PA V2 max: 137.7 cm/sec TR max martin: 275.9 cm/sec LV V1 max P.1 mmHg TR max P.5 mmHg ECHO/Echo Complete Interpretation Summary Left ventricular systolic function is normal. The estimated ejection fraction is 65 %. Mild diffuse mitral valve thickening. Trivial mitral valve insufficiency. Trivial tricuspid valve insufficiency. Right ventricular systolic pressure estimated to be 34 mmHg. No evidence for diastolic dysfunction. Ordering Physician: Jeni Bolaños Referring Physician: Tho Steen Performed By: Jeancarlos Titus RCS
[2021-01-23] MEDS: Phenytoin Na 100 MG Capsule 200 MG PO ×2 (09:28→16:56)
[2021-01-23] MEDS: Furosemide 40 MG/4 ML Vial IV (09:28)
--- NOTE | 2021-01-23 09:30 | PN.HOSP_ITS ---
Subjective Subjective Patient seen and examined. Patient complains of progressive shortness of breath. He is on 3 L of oxygen. Denied any fever or chills. Objective Data Objective Data Vital Signs: Vital Signs Temp Pulse Resp BP Pulse Ox 98.6 F 94 18 126/76 H 100 01/23/21 03:03 01/23/21 09:01 01/23/21 08:00 01/23/21 03:03 01/23/21 07:17 Oxygen Flow Rate (L/min) 3 Oxygen Delivery Method Nasal Cannula Weight: 60.2 kg Body Mass Index (BMI) 18.1 Intake & Output: Intake and Output for Last 24 Hours 01/21/21 01/22/21 01/23/21 23:59 23:59 23:59 Intake Total 0 / 0 950 / 950 Output Total 525 / 525 Balance 0 / 0 425 / 425 Lab / Micro Data Result Diagrams: 01/23/21 06:55 01/23/21 06:55 Labs: Laboratory Results - last 24 hr 01/22/21 01/22/21 01/22/21 21:00 21:00 21:00 WBC 7.5 RBC 3.27 L Hgb 6.7 L Hct 24.4 L MCV 74.6 L MCH 20.5 L MCHC 27.5 L RDW Std Deviation 45.3 H RDW Coeff of Popeye 16.7 H Plt Count 255 MPV 10.6 Immature Gran % (Auto) 0.400 Neut % (Auto) 85.5 H Lymph % (Auto) 6.4 L Grant % (Auto) 5.7 Eos % (Auto) 1.3 Baso % (Auto) 0.7 Absolute Neuts (auto) 6.5 Absolute Lymphs (auto) 0.48 L Nucleated RBC % 0 Differential Comment SCANNED Platelet Estimate Hypochromasia Anisocytosis Microcytosis Retic Count Immature Retic Fraction Retic Hgb Equivalent PT 14.9 INR 1.2 APTT 30.5 Sodium 133 L Potassium 4.9 Chloride 94 L Carbon Dioxide 30.0 Anion Gap 9 BUN 18 Creatinine 0.84 Estim Creat Clear Calc 80.08 Est GFR (MDRD) Af Amer 118 Est GFR (MDRD) Non-Af 97 BUN/Creatinine Ratio 21.3 H Glucose 102 Lactic Acid Calcium 8.8 Iron TIBC Ferritin Total Bilirubin 0.50 AST 29 ALT 22 Alkaline Phosphatase 89 Lactate Dehydrogenase Troponin I < 0.015 B-Natriuretic Peptide Total Protein 7.5 Albumin 4.0 Globulin 3.5 Albumin/Globulin Ratio 1.1 Vitamin B12 Urine Color Urine Clarity Urine pH Ur Specific [place] Urine Protein Urine Glucose (UA) Urine Ketones Urine Occult Blood Urine Nitrite Urine Bilirubin Urine Urobilinogen Ur Leukocyte Esterase Urine RBC Urine WBC Ur Squamous Epith Cells Amorphous Sediment Urine Bacteria Urine Mucus Phenytoin Blood Type A1 Antigen Typing Rho(D) Type Antibody Screen Crossmatch 01/22/21 01/22/21 01/22/21 21:00 21:00 21:00 WBC RBC Hgb Hct MCV MCH MCHC RDW Std Deviation RDW Coeff of Popeye Plt Count MPV Immature Gran % (Auto) Neut % (Auto) Lymph % (Auto) Grant % (Auto) Eos % (Auto) Baso % (Auto) Absolute Neuts (auto) Absolute Lymphs (auto) Nucleated RBC % Differential Comment Platelet Estimate Hypochromasia Anisocytosis Microcytosis Retic Count Immature Retic Fraction Retic Hgb Equivalent PT INR APTT Sodium Potassium Chloride Carbon Dioxide Anion Gap BUN Creatinine Estim Creat Clear Calc Est GFR (MDRD) Af Amer Est GFR (MDRD) Non-Af BUN/Creatinine Ratio Glucose Lactic Acid 2.8 H* Calcium Iron TIBC Ferritin Total Bilirubin AST ALT Alkaline Phosphatase Lactate Dehydrogenase Troponin I B-Natriuretic Peptide Total Protein Albumin Globulin Albumin/Globulin Ratio Vitamin B12 Urine Color Urine Clarity Urine pH Ur Specific [place] Urine Protein Urine Glucose (UA) Urine Ketones Urine Occult Blood Urine Nitrite Urine Bilirubin Urine Urobilinogen Ur Leukocyte Esterase Urine RBC Urine WBC Ur Squamous Epith Cells Amorphous Sediment Urine Bacteria Urine Mucus Phenytoin 3.3 L Blood Type Cancelled A1 Antigen Typing Cancelled Rho(D) Type Cancelled Antibody Screen Cancelled Crossmatch 01/22/21 01/22/21 01/22/21 21:00 21:00 21:00 WBC RBC Hgb Hct MCV MCH MCHC RDW Std Deviation RDW Coeff of Popeye Plt Count MPV Immature Gran % (Auto) Neut % (Auto) Lymph % (Auto) Grant % (Auto) Eos % (Auto) Baso % (Auto) Absolute Neuts (auto) Absolute Lymphs (auto) Nucleated RBC % Differential Comment Platelet Estimate Hypochromasia Anisocytosis Microcytosis Retic Count 1.91 H Immature Retic Fraction 24.40 H Retic Hgb Equivalent 19.9 L PT INR APTT Sodium Potassium Chloride Carbon Dioxide Anion Gap BUN Creatinine Estim Creat Clear Calc Est GFR (MDRD) Af Amer Est GFR (MDRD) Non-Af BUN/Creatinine Ratio Glucose Lactic Acid Calcium Iron 11 L TIBC 424 Ferritin 6 L Total Bilirubin AST ALT Alkaline Phosphatase Lactate Dehydrogenase Troponin I B-Natriuretic Peptide 40.0 Total Protein Albumin Globulin Albumin/Globulin Ratio Vitamin B12 Urine Color Urine Clarity Urine pH Ur Specific [place] Urine Protein Urine Glucose (UA) Urine Ketones Urine Occult Blood Urine Nitrite Urine Bilirubin Urine Urobilinogen Ur Leukocyte Esterase Urine RBC Urine WBC Ur Squamous Epith Cells Amorphous Sediment Urine Bacteria Urine Mucus Phenytoin Blood Type A1 Antigen Typing Rho(D) Type Antibody Screen Crossmatch 01/22/21 01/22/21 01/22/21 21:00 21:45 21:45 WBC RBC Hgb Hct MCV MCH MCHC RDW Std Deviation RDW Coeff of Popeye Plt Count MPV Immature Gran % (Auto) Neut % (Auto) Lymph % (Auto) Grant % (Auto) Eos % (Auto) Baso % (Auto) Absolute Neuts (auto) Absolute Lymphs (auto) Nucleated RBC % Differential Comment Platelet Estimate Hypochromasia Anisocytosis Microcytosis Retic Count Immature Retic Fraction Retic Hgb Equivalent PT INR APTT Sodium Potassium Chloride Carbon Dioxide Anion Gap BUN Creatinine Estim Creat Clear Calc Est GFR (MDRD) Af Amer Est GFR (MDRD) Non-Af BUN/Creatinine Ratio Glucose Lactic Acid Calcium Iron TIBC Ferritin Total Bilirubin AST ALT Alkaline Phosphatase Lactate Dehydrogenase 209 Troponin I B-Natriuretic Peptide Total Protein Albumin Globulin Albumin/Globulin Ratio Vitamin B12 Urine Color Urine Clarity Urine pH Ur Specific [place] Urine Protein Urine Glucose (UA) Urine Ketones Urine Occult Blood Urine Nitrite Urine Bilirubin Urine Urobilinogen Ur Leukocyte Esterase Urine RBC Urine WBC Ur Squamous Epith Cells Amorphous Sediment Urine Bacteria Urine Mucus Phenytoin Blood Type O POSITIVE A1 Antigen Typing Rho(D) Type Antibody Screen NEGATIVE Crossmatch See Detail 01/22/21 01/22/21 01/23/21 22:05 23:00 01:38 WBC RBC Hgb Hct MCV MCH MCHC RDW Std Deviation RDW Coeff of Popeye Plt Count MPV Immature Gran % (Auto) Neut % (Auto) Lymph % (Auto) Grant % (Auto) Eos % (Auto) Baso % (Auto) Absolute Neuts (auto) Absolute Lymphs (auto) Nucleated RBC % Differential Comment Platelet Estimate Hypochromasia Anisocytosis Microcytosis Retic Count Immature Retic Fraction Retic Hgb Equivalent PT INR APTT Sodium Potassium Chloride Carbon Dioxide Anion Gap BUN Creatinine Estim Creat Clear Calc Est GFR (MDRD) Af Amer Est GFR (MDRD) Non-Af BUN/Creatinine Ratio Glucose Lactic Acid 1.7 Calcium Iron TIBC Ferritin Total Bilirubin AST ALT Alkaline Phosphatase Lactate Dehydrogenase Troponin I B-Natriuretic Peptide Total Protein Albumin Globulin Albumin/Globulin Ratio Vitamin B12 384 Urine Color Yellow Urine Clarity Sl. Cloudy Urine pH 5.0 Ur Specific [place] 1.025 Urine Protein 30 H Urine Glucose (UA) Normal Urine Ketones 50 H Urine Occult Blood 10 H Urine Nitrite Negative Urine Bilirubin Negative Urine Urobilinogen Normal Ur Leukocyte Esterase Negative Urine RBC 0-5 SEEN Urine WBC 0-5 SEEN Ur Squamous Epith Cells 0-5 SEEN Amorphous Sediment 1+ URATE Urine Bacteria 0 SEEN Urine Mucus RARE Phenytoin Blood Type A1 Antigen Typing Rho(D) Type Antibody Screen Crossmatch 01/23/21 01/23/21 06:55 06:55 WBC 8.4 RBC 3.69 L Hgb 8.7 L Hct 28.6 L MCV 77.5 L MCH 23.6 L MCHC 30.4 L D RDW Std Deviation 48.2 H RDW Coeff of Popeye 17.7 H Plt Count 210 MPV 10.2 Immature Gran % (Auto) 0.500 Neut % (Auto) 93.7 H Lymph % (Auto) 3.6 L Grant % (Auto) 2.0 Eos % (Auto) 0.0 Baso % (Auto) 0.2 Absolute Neuts (auto) 7.9 H Absolute Lymphs (auto) 0.30 L Nucleated RBC % 0 Differential Comment Platelet Estimate ADEQUATE Hypochromasia 3+ Anisocytosis 1+ Microcytosis 1+ Retic Count Immature Retic Fraction Retic Hgb Equivalent PT INR APTT Sodium 132 L Potassium 4.9 Chloride 96 L Carbon Dioxide 26.0 Anion Gap 10 BUN 20 H Creatinine 0.82 Estim Creat Clear Calc 78.51 Est GFR (MDRD) Af Amer 122 Est GFR (MDRD) Non-Af 101 BUN/Creatinine Ratio 24.3 H Glucose 148 H Lactic Acid Calcium 8.6 Iron TIBC Ferritin Total Bilirubin 1.00 AST 31 ALT 21 Alkaline Phosphatase 86 Lactate Dehydrogenase Troponin I B-Natriuretic Peptide Total Protein 7.2 Albumin 3.8 Globulin 3.4 Albumin/Globulin Ratio 1.1 Vitamin B12 Urine Color Urine Clarity Urine pH Ur Specific [place] Urine Protein Urine Glucose (UA) Urine Ketones Urine Occult Blood Urine Nitrite Urine Bilirubin Urine Urobilinogen Ur Leukocyte Esterase Urine RBC Urine WBC Ur Squamous Epith Cells Amorphous Sediment Urine Bacteria Urine Mucus Phenytoin Blood Type A1 Antigen Typing Rho(D) Type Antibody Screen Crossmatch Micro: Microbiology 01/22/21 22:00 Stool Stool Occult Blood (ANTONI) - Final 01/22/21 21:00 Mucosa - Nose SARS-CoV-2 Antigen (Rapid) - Final Radiography Diagnostic Testing: Radiology Impression Chest X-Ray 01/22/21 20:44 IMPRESSION: No acute cardiopulmonary disease. COPD and emphysema is stable Electronically Signed: Emanuel Ascencio DO at 23:25 EDT Tel , Service support , Physical Exam Narrative Physical exam: General: Alert, Oriented x3, in mild respiratory distress, looks unkempt, on 3 L of oxygen HEENT: Atraumatic Oral: Moist Mucosa Neck: Supple Lungs: Diminished entry, scattered wheezes Cardiovascular: HS I+II, regular, no murmurs Abdomen: Bowel Sounds Present, Soft, Non Tender Extremities: No edema Skin: No rashes, No breakdown Neurological: Grossly intact Psych/Mental Status: Flat affect Assessment & Plan Assessment/Plan (1) Acute hypoxemic respiratory failure: (2) Anemia requiring transfusions: (3) Adult failure to thrive: (4) Severe protein-calorie malnutrition: (5) COPD with acute exacerbation: (6) Seizure disorder: PLAN: 1. Acute hypoxic respiratory insufficiency secondary to acute COPD exacerbation 2. Acute COPD exacerbation, mild, will continue breathing treatment, oral steroids 3. Severe iron deficiency anemia, FOBT is negative Status post 2 units of packed RBCs, hemoglobin is 8.7 Patient will need outpatient colonoscopy Continue on oral iron with stool softeners 4. Debility, multifactorial, PT and OT to evaluate and treat 5. Seizures, level on admission was 3.3, doubts that patient has been compliant Will load with phenytoin IV 1 g x 1 Continue on home phenytoin 200 mg p.o. twice daily Recheck phenytoin level in a.m. 6. Severe calorie protein malnutrition, power shovel mechanic consulted Charges/Coding Visit Charges Inpatient E&M: 37900 Subs Hosp L2
[2021-01-23] MEDS: Ipratropium/Albuterol Sulfate 3 ML AMPUL.NEB INHALATION ×4 (09:36→19:05)
--- NOTE | 2021-01-23 10:15 | CASEMGMT ---
PEARL MARTINEZ Face to Face with patient for initial transition planning/care coordination assessment. RN CM introduced self and role at [facility]. Patient lying in bed, alert and oriented. Patient willing to participate in assessment and is able to answer all questions appropriately. Care providers, pharmacy, and demographics verified. Patient wishes to discharge to a SNF for additional therapy. Patient states he has no further needs or concerns at this time. AJ Arias updated regarding requests for SNF. CM to follow for discharge planning needs that may arise. PCP: Celsa Specialists: Richard comfort filler, hasn't seen for 2 years Preferred [facility]acy: [facility] Insurance: [employer] Prescription Benefit: yes Living Will/HPOA: none LNOK: sons and DIL Living Arrangements: Patient lives with 2 sons and daughter in law in a mobile home with 6-8 steps with railing. Patient states he was independent at home. Transportation: sons DME/HHC: Patient states she has shower chair, nebulizer, and home oxygen 3l[facility] Patient may benefit from walker. Disposition Plan: SNF pending acceptance and precert. Yvette MCCULLOUGHN, RN, CM
[2021-01-23] MEDS: predniSONE 20 MG Tablet 40 MG PO (10:49)
--- NOTE | 2021-01-23 10:59 | CASEMGMT ---
Social Work Note SW received consult for SNF placement. AJ provided RN CM with list of SNF that accept pt's insurance to provide to pt. Patient was provided a list of SNF providers including quality and resource use data and consistent with the patient?s preferred geographic region, medical needs, and insurance network. AJ in to speak with pt. AJ introduced self and role at [facility]. Pt confirms he is agreeable to SNF and preferred provider is [facility]. SW explained referral process and that pt will need a pre-cert. Pt states understanding. AJ placed a call to Linnea with TCU and provided referral. PT/OT is on hold today due to pt's SOB, Linnea to submit for pre-cert once PT/OT works with pt tomorrow. AJ in to speak with pt. SW updated pt that TCU is able to accept pt pending pre-cert. AJ reviewed chart and order was put in for community mental health social worker that pt's son Cleve wanted to be called to discuss plans. AJ informed pt of this, pt gave this worker permission to call his son Cleve to update. AJ attempted to call number that was put in order ( ), number is not available. AJ attempted to call pt's son Cleve on cell phone, voicemail is full. AJ then received call from pt's son Cleve. AJ updated Cleve that pt is agreeable to [facility] and pt will need pre-cert. AJ informed Cleve that pre-cert cannot be submitted until PT/OT works with pt, which is on hold for today. AJ explained once pt gets to [facility] and gets therapy, TCU will make further recommendations on the next steps for pt after TCU. Cleve states that is aware his father is of sound mind and can make his own decisions. Cleve states he will be at [facility] around 3:00pm and asked if there will be someone to talk to about what is going on with pt. AJ informed Cleve that once he arrives to [facility] he can ask to speak with pt's RN for medical update and that this worker will be working with the discharge planning. AJ informed Cleve that there will be no update today on discharge plans as TCU is not able to submit for pre-cert until pt works with PT/OT which will be tomorrow. Cleve states understanding. Plan: TCU pending pre-cert Yvette Arias MOWER MECHANIC, HUMANITIES DEPARTMENT CHAIR
--- NOTE | 2021-01-23 12:44 | NT.THERAPY_ITS ---
Medical Nutrition Therapy - History Nutrition Services has been consulted to:: Manage nutrient details of diet order Current diet/nutrition support order:: Regular. Ensure Enlive 120mL 4x/day - Anthropometric Measurements Height:: 6 ft Weight:: 60.2 kg Body Mass Index (BMI):: 18.0 - Relevant Labs Relevant Labs:: RBC 3.69 M/mm3 (4.6-6.2) L 01/23/21 06:55 Hgb 8.7 g/dL (13.0-16.5) L 01/23/21 06:55 Hct 28.6 % (40-54) L 01/23/21 06:55 MCV 77.5 fL (80-94) L 01/23/21 06:55 MCH 23.6 pg (27.0-32.0) L 01/23/21 06:55 MCHC 30.4 g/dL (32-36) L D 01/23/21 06:55 RDW Std Deviation 48.2 fl (35.1-43.9) H 01/23/21 06:55 RDW Coeff of Popeye 17.7 % (11.6-14.6) H 01/23/21 06:55 Neut % (Auto) 93.7 % (47-70) H 01/23/21 06:55 Lymph % (Auto) 3.6 % (19-41) L 01/23/21 06:55 Absolute Neuts (auto) 7.9 X10^3/uL (2.0-7.7) H 01/23/21 06:55 Absolute Lymphs (auto) 0.30 X10^3/uL (0.83-4.51) L 01/23/21 06:55 Retic Count 1.91 % (0.5-1.5) H 01/22/21 21:00 Immature Retic Fraction 24.40 % (3.00-15.90) H 01/22/21 21:00 Retic Hgb Equivalent 19.9 pg (30-35) L 01/22/21 21:00 Sodium 132 mmol/L (136-145) L 01/23/21 06:55 Chloride 96 mmol/L (98-107) L 01/23/21 06:55 BUN 20 mg/dL (7-18) H 01/23/21 06:55 BUN/Creatinine Ratio 24.3 RATIO (10-20) H 01/23/21 06:55 Glucose 148 mg/dL (74-106) H 01/23/21 06:55 Lactic Acid 2.8 mmol/L (0.4-1.9) H* 01/22/21 21:00 Iron 11 ug/dL (65-175) L 01/22/21 21:00 Ferritin 6 ng/mL (26-388) L 01/22/21 21:00 - Assessment Food and Nutrient Intake: Per family, 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 Pt states he will go 2-3 days w/o eating at home and mostly drinks just coffee. Pt states his appetite has declined over past 6 months. Feels wt was ~150# approx. 6 months ago. CBW 132.7#- 17.3#/11.5% wt loss is significant for malnutrition. Lunch tray observed, ~50% consumed. - Nutrition Diagnosis: Clinical Problem Chronic Disease or Condition Related Malnutrition Clinical Problem - Etiology: severe malnutrition r/t inadequate energy intake in context of decreased appetite and social/behavioral circumstances Clinical Problem - Signs/Symptoms: as evidenced by reported skipping of meals/no PO intake for 2-3 days at a time SENIOR WINDOWS ENGINEER (estimated nutritional intake meeting <50% of nutritional needs for >1 month), unintentional wt loss of 17.3#/11.5% x 6 months, BMI 18.0 - Protein Calorie Malnutrition Evidence of Malnutrition Exists: Yes Severe Protein Calorie Malnutrition:: Social/Behavioral/Environmental - Nutrition Intervention Nutrition Prescription: [id number] calories/day (1.3xRMR). 60-75 g protein/day (1-1.25g/kg). 1800mL fluid/day (30mL/kg) - Food / Nutrient Delivery Interventions Summary of nutrition intervention:: Adjust diet order, Provide oral nutrition supplement Nutrition support ordered as / adjusted to:: continue regular diet, will fortify foods when possible. Will add magic cup w/ lunch for additional calories/protein if consumed. Continue 120mL ensure enlive 4x/day Coordination of Nutrition Care: Noted CM/SW consult for discharge planning. - MNT Monitoring Active Nutrition Patient: Yes Nutrition Status: Requires Follow Up 3-5 Days
--- NOTE | 2021-01-23 12:59 | CPS ---
Pt states during aerosol that he prefers inhalers to aerosols. He keeps taking the aerosol off before the medication if complete.
[2021-01-23] MEDS: LORazepam 1 MG Tablet PO (15:46)
[2021-01-23] MEDS: Ferrous Sulfate 325 MG Tablet PO (16:56)
[2021-01-24] VITALS (21 sets, daily range): BP systolic 97–124; BP diastolic 57–68; PULSE 73–104; RESP 16–24; TEMP 36.7–37.1; O2SAT 94–100
[2021-01-24] MEDS: Ipratropium/Albuterol Sulfate 3 ML AMPUL.NEB INHALATION ×4 (05:39→19:22)
[2021-01-24 06:24] LABS: Absolute Lymphocyte Count 0.41 X10^3/uL (0.83-4.51); Absolute Neutrophil Count 7.5 X10^3/uL (2.0-7.7); Basophil# 0.03 X10^3/uL; Basophil% 0.3 % (0-1); Eosinophil# 0.07 X10^3/uL; Eosinophils% 0.8 % (0-5); Hematocrit 27.3 % (40-54); Hemoglobin 8.4 g/dL (13.0-16.5); Lymphocyte # 0.41 X10^3/ul (0.83-4.51); Lymphocyte % 4.6 % (19-41); Mean Corp Hgb Conc 30.8 g/dL (32-36); Mean Platelet Vol. 10.2 fl (6.2-12.0); Monocyte# 0.73 X10^3/uL; Monocyte% 8.3 % (0-10); NRBC Flagged by Analyzer 0.8 % (0-5); Neutrophil # 7.53 X10^3/uL (2.7-7.7); Neutrophil % 85.4 % (47-70); POSITIVE DIFFERENTIAL YES; Platelet Count 170 K/mm3 (150-450); RBC Distribution Width CV 17.5 % (11.6-14.6); RBC Distribution Width SD 48.1 fl (35.1-43.9); White Blood Count 8.8 K/mm3 (4.4-11.0)
[2021-01-24 06:28] LABS: Differential Indicated SCAN CRITERIA MET
[2021-01-24 06:49] LABS: ALB/GLOB Ratio 1.2 RATIO (0.9-2.4); AST(SGOT) 51 U/L (15-37); Alanine Aminotransfer ALT/SGPT 26 U/L (16-61); Albumin, Serum 3.6 g/dL (3.2-5.0); Alkaline Phosphatase 75 U/L (45-117); Anion Gap 4 (5-15); BUN 20 mg/dL (7-18); BUN/Creat Ratio 28.6 RATIO (10-20); Calcium,Total 8.3 mg/dL (8.5-10.1); Chloride 98 mmol/L (98-107); EST Glomerular Filtration Rate 121 mL/min (>60); Est Glom Filt Rate - Afr Amer 146 mL/min (>60); Estimated Creatinine Clearance 88.15 ml/min; Globulin 3.1 g/dL (2.2-4.2); Glucose 96 mg/dL (74-106); Phenytoin (Dilantin) Level 27.1 mL (10.0-20.0); Protein, Total 6.7 g/dL (6.4-8.2); Sodium Level 138 mmol/L (136-145)
--- NOTE | 2021-01-24 08:25 | NURSING ---
respiratory therapist Curtis notified of order for ABGs
[2021-01-24 09:05] LABS: Allen Test Positive; Base Excess 10 mmol/L (-2 to +2); Bicarbonate 36.6 mmol/L (22-26); Blood Gas Specimen Type ART; O2 Delivery Device Cannula; PO2 196 mmHG (75-100); SITE L Radial; SO2 100 % (95-99); Total Carbon Dioxide 39 mmol/L; pCO2 78.6 mmHg (35-45); pH 7.28 (7.35-7.45)
--- NOTE | 2021-01-24 09:06 | CPS ---
Critical C02 value verified times two.Reported to charge nurse.Verified by read back.
--- NOTE | 2021-01-24 11:04 | PN.HOSP_ITS ---
Subjective Subjective Patient was seen and examined. He is very lethargic. He received a dose of Ativan 1 mg p.o. x1 for anxiety yesterday prior to having Doppler ultrasound of lower extremities Objective Data Objective Data Vital Signs: Vital Signs Temp Pulse Resp BP Pulse Ox 98.0 F 73 20 H 97/57 L 96 01/24/21 09:50 01/24/21 09:50 01/24/21 09:50 01/24/21 09:50 01/24/21 09:50 Oxygen Flow Rate (L/min) 3 Oxygen Delivery Method Bi-pap Weight: 57.7 kg Body Mass Index (BMI) 18.0 Intake & Output: Intake and Output for Last 24 Hours 01/22/21 01/23/21 01/24/21 23:59 23:59 23:59 Intake Total 0 / 0 1670 / 1670 Output Total 2725 / 2725 450 / 450 Balance 0 / 0 -1055 / -1055 -450 / -450 Lab / Micro Data Result Diagrams: 01/24/21 06:10 01/24/21 06:10 Labs: Laboratory Results - last 24 hr 01/24/21 01/24/21 01/24/21 06:10 06:10 06:10 WBC 8.8 RBC 3.50 L Hgb 8.4 L Hct 27.3 L MCV 78.0 L MCH 24.0 L MCHC 30.8 L RDW Std Deviation 48.1 H RDW Coeff of Popeye 17.5 H Plt Count 170 MPV 10.2 Immature Gran % (Auto) 0.600 Neut % (Auto) 85.4 H Lymph % (Auto) 4.6 L [place] % (Auto) 8.3 Eos % (Auto) 0.8 Baso % (Auto) 0.3 Absolute Neuts (auto) 7.5 Absolute Lymphs (auto) 0.41 L Nucleated RBC % 0.8 Sodium 138 Potassium 4.0 Chloride 98 Carbon Dioxide 36.0 H Anion Gap 4 L BUN 20 H Creatinine 0.70 Estim Creat Clear Calc 88.15 Est GFR (MDRD) Af Amer 146 Est GFR (MDRD) Non-Af 121 BUN/Creatinine Ratio 28.6 H Glucose 96 Calcium 8.3 L Total Bilirubin 0.20 AST 51 H ALT 26 Alkaline Phosphatase 75 Total Protein 6.7 Albumin 3.6 Globulin 3.1 Albumin/Globulin Ratio 1.2 Phenytoin 27.1 H Micro: Microbiology 01/23/21 10:10 Stool Stool Occult Blood (ANTONI) - Final 01/22/21 22:00 Stool Stool Occult Blood (ANTONI) - Final 01/22/21 21:00 Mucosa - Nose SARS-CoV-2 Antigen (Rapid) - Final ABG Data ABG results: ABG 01/24/21 08:59 Specimen Type ART Sample Site L Radial pH 7.28 L Bicarbonate Actual 36.6 H Total CO2 39 Base Excess 10 H O2 Saturation 100 H ABG pCO2 78.6 H* ABG pO2 196 H Chuck Test Positive O2 Delivery Device Cannula Liter Flow 3.0 Crit Call To/Read Back Yes Radiography Diagnostic Testing: Radiology Impression Venous Doppler Study 01/23/21 00:15 Interpretation Summary No evidence for acute deep venous thrombosis bilateral lower extremities with patent and compressible bilateral great saphenous veins. Technically fair quality noted. Ordering Physician: Shayy Barros Performed By: Teo Samaniego RVT Echocardiogram 01/23/21 09:27 Interpretation Summary Left ventricular systolic function is normal. The estimated ejection fraction is 65 %. Mild diffuse mitral valve thickening. Trivial mitral valve insufficiency. Trivial tricuspid valve insufficiency. Right ventricular systolic pressure estimated to be 34 mmHg. No evidence for diastolic dysfunction. Ordering Physician: Jeni Bolaños Referring Physician: Tho Steen Performed By: Jeancarlos Titus RCS Physical Exam Narrative Physical exam: General: Lethargic, in mild respiratory distress, looks unkempt, on 3 L of oxygen HEENT: Atraumatic Oral: Moist Mucosa Neck: Supple Lungs: Diminished entry, scattered wheezes Cardiovascular: HS I+II, regular, no murmurs Abdomen: Bowel Sounds Present, Soft, Non Tender Extremities: No edema Skin: No rashes, No breakdown Neurological: Grossly intact Psych/Mental Status: Flat affect Assessment & Plan Assessment/Plan (1) Acute hypoxemic respiratory failure: (2) Anemia requiring transfusions: (3) Adult failure to thrive: (4) Severe protein-calorie malnutrition: (5) COPD with acute exacerbation: (6) Seizure disorder: PLAN: 1. Lethargy secondary to hypercapnic respiratory failure ABG shows pH 7.28, PCO2 78.6 Will start on Bipap, pulmonology consult 2. Acute hypoxic respiratory insufficiency secondary to acute COPD exacerbation Remains on 3 L of oxygen, continue with breathing treatments 3. Acute COPD exacerbation, mild, continue breathing treatment, IV solumedrol 4. Severe iron deficiency anemia, FOBT is negative Status post 2 units of packed RBCs, hemoglobin is 8.3 Patient will need outpatient colonoscopy Continue on oral iron with stool softeners 5. Debility, multifactorial, PT and OT to evaluate and treat 6. Seizures, level on admission was 3.3, received Phenytoin 1000mg IV x1, Repeat level is 27.1 Will hold oral phenytoin for now Repeat level in am 7. Severe calorie protein malnutrition, advertising sales representative consulted Charges/Coding Visit Charges Inpatient E&M: 19534 Subs Hosp L2
--- NOTE | 2021-01-24 12:09 | MDS.RN ---
attempt to call lily eckert unsucessful, he did not answer and mailbox is full, will try again later
[2021-01-24] MEDS: 0.9% Saline Lock 10 ML Syringe IV ×2 (12:16→21:08)
[2021-01-24 13:06] LABS: Haptoglobin 49 mg/dL (32-363)
--- NOTE | 2021-01-24 13:39 | EX.PCM.CONCC ---
Assessment & Plan Assessment/Plan (1) Chronic hypercapnic respiratory failure: (2) COPD with acute exacerbation: (3) Severe protein-calorie malnutrition: (4) Adult failure to thrive: (5) Anemia requiring transfusions: (6) Seizure disorder: (7) Hyperlipidemia: PLAN: RECOMMENDATIONS: 1. Continue BiPAP as needed during the day and with sleep 2. Agree with steroids, bronchodilators. No mucolytic for now 3. Consider avoiding Ativan as this may increase risk of delirium 4. Consider outpatient low-dose CT scan and PFT IMPRESSIONS: 1. Acute on chronic combined respiratory failure Unclear if patient had loss of hypoxic drive versus respiratory muscle fatigue associated with an acute COPD exacerbation. Patient does have significant hyperinflation on chest x-ray. Agree with steroids and bronchodilators. Patient is not reporting a significant productive cough, so mucolytic is likely not necessary. Would continue with BiPAP as needed during the day, but BiPAP overnight will be helpful long-term. Patient may be a candidate for home noninvasive therapy if does not respond to optimization. Patient's actions suggest that he is palliative in nature, but he states he is willing to use BiPAP if necessary. Family meeting scheduled for later today per nursing. 2. Debility/severe protein calorie malnutrition Patient with significant weight loss over the last 3 to 6 months. Unclear if this is secondary to decreased p.o. intake or a possible secondary process such as malignancy. Patient would be at risk for cancer, but no nodules are noted on chest x-ray. Patient would qualify for low-dose CT scan by latest criteria, but this should be completed as an outpatient. PT/OT and dietitian will be helpful. Patient may require placement. 3. Seizure disorder/severe iron deficiency anemia/failure to thrive Complicates care, management, recovery and prognosis. Patient has not had any seizure activity, but was loaded with Dilantin. Defer to primary service. Patient did have an anemia, which would be poorly compensated given his underlying COPD. Agree with hemoglobin goal above 7. Patient may have dietary deficiency of iron leading to current status versus ongoing blood loss. HPI Consult Data Date of Consult: 01/24/21 HPI Narrative HPI Narrative: MAMI CHAPMAN is a 65-year-old male, with past medical history listed below, who presented to [facility] on 01/22/2021 secondary to progressive shortness of breath. Patient reportedly had reported some increasing lower extremity edema and decreased strength. Patient reportedly had not been moving around much for several days and was urinating in a bottle. Patient is on 3 L nasal cannula at position in 2019. Patient also reports a history of seizure disorder on Dilantin. Family had reported that he looked more pale compared to previous, but he had denied any black or bloody stools. Patient did report some anorexia and had a 20 to 30 pound weight loss over the last 6 months. Patient was a former alcoholic and smoker, but had quit alcohol sometime ago and was not smoking for the last 50 days. Patient was reportedly 83% on his baseline 3 L nasal cannula by EMS. In the ER, patient was afebrile, but tachycardic at 104 bpm. Patient was noted to be 97% on 4 L nasal cannula. Patient was found to be significantly anemic on laboratory work-up with a hemoglobin of 6.7, but baseline appears to be approximately 7.5. Lactate was elevated at 2.8. Coagulation studies and CMP were relatively unremarkable. Troponin was normal. Phenytoin level was low at 3.3 and UA was relatively unremarkable except for a slight urate crystal. This morning, patient was noted to be more somnolent compared to previous. An ABG was obtained showing CO2 retention and respiratory acidosis. Patient was subsequently placed on BiPAP therapy, but was not transferred from [facility] secondary to a CODE STATUS of DNR Comfort Care arrest without intubation. Patient did respond to therapy and was able to discuss the situation with me on nasal cannula oxygen. Patient is a very poor historian. Patient states that he has had anhedonia for several months. Patient states he has had weight loss that he attributes to decreased p.o. intake. Patient is resistant to go to a long-term, but states he has been compliant with his medications and supplemental oxygen. Patient is unclear on why he was lost to follow-up. Patient had been established in our office in [address] Maxwell. Patient did not complete pulmonary function testing at that time. Patient was not interested in giving a full review of systems. Patient was simply asking to eat. Patient was not reporting any history of seizure activity. [facility] Medical History Acute hypoxemic respiratory failure Chronic hypercapnic respiratory failure Collapsed lung COPD (chronic obstructive pulmonary disease) COPD with acute exacerbation Hyperlipidemia Hypertension Seizure disorder Home Medications phenytoin sodium extended 200 mg PO BID 07/24/15 [History Last Taken Unknown] nebulizers #1 kit 07/25/15 [Rx Last Taken Unknown] ipratropium 0.5 mg-albuterol 3 mg (2.5 mg base)/3 mL nebulization soln 3 ml INHALATION Q4H.RT #180 ml 12/10/18 [Rx Last Taken Unknown] albuterol sulfate 2.5 mg INHALATION Q2H PRN PRN #180 ml 08/16/19 [Rx Last Taken Unknown] albuterol sulfate 90 mcg/actuation aerosol inhaler 1 - 2 puff INHALATION Q4H PRN PRN #1 inhaler 08/16/19 [Rx Last Taken Unknown] ipratropium 20 mcg-albuterol 100 mcg/actuation mist for inhalation 1 puff INHALATION Q6H #4 g 08/16/19 [Rx Last Taken Unknown] Allergy/AdvReac Type Severity Reaction Status Date / Time codeine AdvReac Nausea Verified 01/22/21 20:43 Family History Mother Lung disease Father Heart disease Social History Smoking Status: Former smoker Tobacco: How many years used: 50 ROS ROS Narrative See HPI Physical Exam Const oriented x3 and no apparent distress General Appearance: frail; Negative for in distress HEENT normocephalic and head/scalp atraumatic; Negative for moist oral mucous membranes Eyes PERRL, EOMs intact bilaterally and conjunctivae normal Neck full ROM Lymph Lymphatic: no lymphadenopathy noted Resp normal respiratory effort and no use of accessory muscles Effort and Inspection: able to speak in complete sentences Auscultation: clear to auscultation bilaterally; Negative for rales, rhonchi or wheezes Cardio S1 normal heart sound, S2 normal heart sound, no murmurs, no rub, no gallops and no JVD Rate: tachycardic Rhythm: abnormal rhythm irregularly irregular GI normal to inspection, nondistended, normoactive bowel sounds Extremity General Extremity: clubbing and edema; Negative for cyanosis Peripheral Pulses: Yes pulses 2+ throughout Skin no rashes or lesions noted Neuro oriented x3 and CN's II-XII intact bilaterally Psych cooperative Mood & Affect: apathetic and flat affect Lab / Micro Data Result Diagrams: 01/24/21 06:10 01/24/21 06:10 Labs: Laboratory Results - last 24 hr 01/23/21 01/24/21 01/24/21 06:55 06:10 06:10 WBC 8.8 RBC 3.50 L Hgb 8.4 L Hct 27.3 L MCV 78.0 L MCH 24.0 L MCHC 30.8 L RDW Std Deviation 48.1 H RDW Coeff of Popeye 17.5 H Plt Count 170 MPV 10.2 Immature Gran % (Auto) 0.600 Neut % (Auto) 85.4 H Lymph % (Auto) 4.6 L Traverse % (Auto) 8.3 Eos % (Auto) 0.8 Baso % (Auto) 0.3 Absolute Neuts (auto) 7.5 Absolute Lymphs (auto) 0.41 L Nucleated RBC % 0.8 Haptoglobin 49 Sodium 138 Potassium 4.0 Chloride 98 Carbon Dioxide 36.0 H Anion Gap 4 L BUN 20 H Creatinine 0.70 Estim Creat Clear Calc 88.15 Est GFR (MDRD) Af Amer 146 Est GFR (MDRD) Non-Af 121 BUN/Creatinine Ratio 28.6 H Glucose 96 Calcium 8.3 L Total Bilirubin 0.20 AST 51 H ALT 26 Alkaline Phosphatase 75 Total Protein 6.7 Albumin 3.6 Globulin 3.1 Albumin/Globulin Ratio 1.2 Phenytoin 01/24/21 06:10 WBC RBC Hgb Hct MCV MCH MCHC RDW Std Deviation RDW Coeff of Popeye Plt Count MPV Immature Gran % (Auto) Neut % (Auto) Lymph % (Auto) Traverse % (Auto) Eos % (Auto) Baso % (Auto) Absolute Neuts (auto) Absolute Lymphs (auto) Nucleated RBC % Haptoglobin Sodium Potassium Chloride Carbon Dioxide Anion Gap BUN Creatinine Estim Creat Clear Calc Est GFR (MDRD) Af Amer Est GFR (MDRD) Non-Af BUN/Creatinine Ratio Glucose Calcium Total Bilirubin AST ALT Alkaline Phosphatase Total Protein Albumin Globulin Albumin/Globulin Ratio Phenytoin 27.1 H Micro: Microbiology 01/23/21 10:10 Stool Occult Blood (ANTONI) - Final Stool ABG Data ABG results: ABG 01/24/21 08:59 Specimen Type ART Sample Site L Radial pH 7.28 L Bicarbonate Actual 36.6 H Total CO2 39 Base Excess 10 H O2 Saturation 100 H ABG pCO2 78.6 H* ABG pO2 196 H Chuck Test Positive O2 Delivery Device Cannula Liter Flow 3.0 Crit Call To/Read Back Yes Radiology Impression Venous Doppler Study 01/23/21 00:15 Interpretation Summary No evidence for acute deep venous thrombosis bilateral lower extremities with patent and compressible bilateral great saphenous veins. Technically fair quality noted. Ordering Physician: Shayy Barros Performed By: Teo Samaniego RVT Echocardiogram 01/23/21 09:27 Interpretation Summary Left ventricular systolic function is normal. The estimated ejection fraction is 65 %. Mild diffuse mitral valve thickening. Trivial mitral valve insufficiency. Trivial tricuspid valve insufficiency. Right ventricular systolic pressure estimated to be 34 mmHg. No evidence for diastolic dysfunction. Ordering Physician: Jeni Bolaños Referring Physician: Tho Steen Performed By: Jeancarlos Titus RCS Charges/Coding Visit Charges Inpatient E&M: 88586 Init Hosp L3
--- NOTE | 2021-01-24 15:19 | CASEMGMT ---
Social Work Note PT/OT still on hold today. SW placed a call to Linnea with TCU and updated her. Plan: TCU pending pre-cert Yvette Arias MANAGER SHIPPING, SHIPPER RECEIVER
[2021-01-24] MEDS: Albuterol 2.5 MG/3 ML VIAL.NEB. INHALATION (16:08)
[2021-01-24 16:09] LABS: Folate, RBC (Hct) Test 21.8 % (37.5-51.0)
[2021-01-24] MEDS: Ferrous Sulfate 325 MG Tablet PO (16:36)
[2021-01-24 20:26] LABS: Folates, RBC Test 1362 ng/mL (>498)
[2021-01-25] VITALS (21 sets, daily range): BP systolic 92–129; BP diastolic 54–84; PULSE 79–95; RESP 18–24; TEMP 36.6–37.3; O2SAT 92–99
[2021-01-25] MEDS: Albuterol 2.5 MG/3 ML VIAL.NEB. INHALATION ×3 (00:51→17:01)
--- NOTE | 2021-01-25 01:25 | CPS ---
Pt. stated to RN that he was unable to breathe while wearing his BiPaP mask at this time.
[2021-01-25 06:40] LABS: Phenytoin (Dilantin) Level 15.5 mL (10.0-20.0)
[2021-01-25] MEDS: Ipratropium/Albuterol Sulfate 3 ML AMPUL.NEB INHALATION ×4 (06:57→18:42)
--- NOTE | 2021-01-25 07:23 | PCM.PN.INT ---
Assessment & Plan Assessment/Plan (1) Chronic hypercapnic respiratory failure: (2) COPD with acute exacerbation: (3) Severe protein-calorie malnutrition: (4) Adult failure to thrive: (5) Anemia requiring transfusions: (6) Seizure disorder: (7) Hyperlipidemia: PLAN: RECOMMENDATIONS: 1. Continue BiPAP as needed during the day and with sleep 2. Agree with steroids, bronchodilators. No mucolytic for now 3. Consider avoiding Ativan as this may increase risk of delirium 4. Consider outpatient low-dose CT scan and PFT IMPRESSIONS: 1. Acute on chronic combined respiratory failure Unclear if patient had loss of hypoxic drive versus respiratory muscle fatigue associated with an acute COPD exacerbation. Patient does have significant hyperinflation on chest x-ray. Agree with steroids and bronchodilators. Patient is not reporting a significant productive cough, so mucolytic is likely not necessary. Stressed to the patient the importance of using BiPAP for rescue overnight, but patient appears to be precontemplative. Patient may be a candidate for home noninvasive therapy if does not respond to optimization. Patient's actions suggest that he is palliative in nature, but he states he is willing to use BiPAP if necessary. Family meeting scheduled for later today per nursing. Anticipate slow recovery given advanced lung disease and comorbid conditions. 2. Debility/severe protein calorie malnutrition Patient with significant weight loss over the last 3 to 6 months. Unclear if this is secondary to decreased p.o. intake or a possible secondary process such as malignancy. Patient would be at risk for cancer, but no nodules are noted on chest x-ray. Patient would qualify for low-dose CT scan by latest criteria, but this should be completed as an outpatient. PT/OT and dietitian will be helpful. Patient may require placement. 3. Seizure disorder/severe iron deficiency anemia/failure to thrive Complicates care, management, recovery and prognosis. Patient has not had any seizure activity, but was loaded with Dilantin. Defer to primary service. Patient did have an anemia, which would be poorly compensated given his underlying COPD. Agree with hemoglobin goal above 7. Patient may have dietary deficiency of iron leading to current status versus ongoing blood loss. Recheck CBC tomorrow. Dilantin level is therapeutic. Subjective Subjective Patient did okay overnight. Patient did refuse BiPAP therapy. Patient continues to be dyspneic, but denies any chest pain. Patient has had a cough that is relatively nonproductive. Objective Data Objective Data Vital Signs: Vital Signs Temp Pulse Resp BP Pulse Ox 37.2 C 85 20 H 101/64 97 01/25/21 02:10 01/25/21 06:57 01/25/21 06:57 01/25/21 02:10 01/25/21 06:57 Oxygen Flow Rate (L/min) 2 Oxygen Delivery Method Nasal Cannula Weight: 57.5 kg Body Mass Index (BMI) 18.0 Intake & Output: Intake and Output for Last 24 Hours 01/23/21 01/24/21 01/25/21 23:59 23:59 23:59 Intake Total 1670 / 1670 500 / 500 Output Total 2725 / 2725 1250 / 1500 500 / 500 Balance -1055 / -1055 -750 / -1000 -500 / -500 Lab / Micro Data Result Diagrams: 01/24/21 06:10 01/24/21 06:10 Labs: Laboratory Results - last 24 hr 01/22/21 01/23/21 01/25/21 23:00 06:55 05:20 Haptoglobin 49 RBC Folate Hemolysate 297.0 RBC Folate 1362 Hematocrit 21.8 L Phenytoin 15.5 Micro: Microbiology 01/23/21 10:10 Stool Stool Occult Blood (ANTONI) - Final 01/22/21 22:00 Stool Stool Occult Blood (ANTONI) - Final 01/22/21 21:00 Mucosa - Nose SARS-CoV-2 Antigen (Rapid) - Final ABG Data ABG results: ABG 01/24/21 08:59 Specimen Type ART Sample Site L Radial pH 7.28 L Bicarbonate Actual 36.6 H Total CO2 39 Base Excess 10 H O2 Saturation 100 H ABG pCO2 78.6 H* ABG pO2 196 H Chuck Test Positive O2 Delivery Device Cannula Liter Flow 3.0 Crit Call To/Read Back Yes Physical Exam Const oriented x3 and no apparent distress General Appearance: frail; Negative for in distress HEENT normocephalic and head/scalp atraumatic; Negative for moist oral mucous membranes Eyes PERRL, EOMs intact bilaterally and conjunctivae normal Neck full ROM Lymph Lymphatic: no lymphadenopathy noted Resp normal respiratory effort and no use of accessory muscles Effort and Inspection: able to speak in complete sentences Auscultation: clear to auscultation bilaterally; Negative for rales, rhonchi or wheezes Cardio S1 normal heart sound, S2 normal heart sound, no murmurs, no rub, no gallops and no JVD Rate: tachycardic Rhythm: abnormal rhythm irregularly irregular GI normal to inspection, nondistended, normoactive bowel sounds Extremity General Extremity: clubbing and edema; Negative for cyanosis Skin no rashes or lesions noted Neuro oriented x3 and CN's II-XII intact bilaterally Psych cooperative Mood & Affect: apathetic and flat affect Charges/Coding Visit Charges Inpatient E&M: 34044 Subs Hosp L3
[2021-01-25] MEDS: 0.9% Saline Lock 10 ML Syringe IV ×3 (10:37→20:19)
--- NOTE | 2021-01-25 11:00 | CON.PCM.PA_ITS ---
Assessment & Plan Assessment/Plan (1) Shortness of breath: (2) Physical debility: (3) Adult failure to thrive: (4) Severe protein-calorie malnutrition: (5) Anemia requiring transfusions: (6) Acute hypoxemic respiratory failure: (7) Chronic hypercapnic respiratory failure: (8) COPD with acute exacerbation: (9) Hypertension: QUALIFIERS: Hypertension type: essential hypertension Qualified Code(s): I10 - Essential (primary) hypertension (10) Seizure disorder: (11) Hyperlipidemia: QUALIFIERS: Hyperlipidemia type: unspecified Qualified Code(s): E78.5 - Hyperlipidemia, unspecified (12) COPD (chronic obstructive pulmonary disease): QUALIFIERS: COPD type: unspecified COPD Qualified Code(s): J44.9 - Chronic obstructive pulmonary disease, unspecified PLAN: 65-year-old male with COPD, chronic hypercapnic and hypoxemic respiratory failure, history of alcohol and tobacco abuse, presented with progressive shortness of breath and severe anemia. Seen today for initial palliative care consultation secondary to shortness of breath. Patient is going to be discharged to the TCU today or tomorrow. 1. Dyspnea: Multifactorial, seems to be stable at this point. Patient is on minimal medications at home but his nebulizers do help with his shortness of breath. He has been given Ativan but that made him lethargic. He is intolerant to BiPAP, so would be hesitant to give him any sedating medications. Avoid oxycodone and ativan for management of shortness of breath. 2. Anxiety: Suspect significant anxiety component to his dyspnea as well. Would possibly benefit from non-benzo anxiolytic such as buspirone, would start him at 7.5 mg twice daily and titrate as needed OR SSRI such as sertraline 50mg daily. 3. Debility/FTT/malnutrition: Unclear etiology, he does have activity intolerance. Poor appetite. Question if he has financial concerns as well. He will be going to TCU for further therapy. We will continue to follow him there 4. Chronic hypercapnic and hypoxemic respiratory failure/COPD/HTN/seizure disorder/HLD/chronic anemia: Complicates overall care, management, recovery, and prognosis. Defer management to hospitalist/PCP/specialists. Thank you for the opportunity to participate in this patient's care, please do not hesitate to contact [facility] with any further questions or concerns. Palliative direct line is [phone]. We will follow up in TCU, liaison to discuss palliative services further. Greater than 50% of F2F visit dedicated to education and counseling of palliative care services, medications, comorbid conditions and potential assistance with management, and plan of care moving forward. Start time: 1100 End time: 1221 HPI Consult Data Date of Consult: 01/25/21 HPI Narrative HPI Narrative: MAMI CHAPMAN, is a 65 M who presented to [facility] 01/22/2021 with progressive shortness of breath, increased lower extremity edema, and severe malnutrition. Work-up in the ER showed significant anemia at 6.7, lactic acid elevated at 2.8. EMS had reported hypoxia on 3 L in his home, he was around 83%. Palliative care was consulted for shortness of breath and anxiety. Past medical history as below. Patient is being treated for an acute hypoxemic respiratory failure secondary to acute COPD exacerbation, severe iron deficiency anemia requiring blood transfusions, severe weakness, and subtherapeutic phenytoin level for his history of seizures. He is not tolerating BiPAP, states he is unable to breathe. He is also not tolerating the aerosols well, often refuses or does a partial breathing treatments secondary to increased dyspnea. Patient does have a significant component of hypercapnia. PT/OT was on hold s econdary to his symptoms. He is on bronchodilators and steroids. Pulmonary and attending recommended avoiding Ativan since he has increased risk for delirium and lethargy. Pulmonary also recommended considering an outpatient low-dose CT scan and PFT if patient is willing to follow-up with pulmonary again, would r/o CA since wt loss of 20-30# over about 6 months. He had an echocardiogram 01/23/2021 that showed a normal LV systolic function, estimated EF of 65%, mild diffuse MV thickening, trivial mitral and tricuspid valve insufficiency, and RVSP estimated at 34 mmHg. Venous Dopplers were negative for acute DVT. Patient has poor hygiene and has been urinating in bottles at home. He has no appetite. He does have supplemental oxygen at home at 3 L per nasal cannula but does not always wear it. He was following with Dr. Maxwell and Diane Harris BAD CREDIT COLLECTOR at [facility] [place], but has not been there since December 2018. He lives with his 2 sons and one [id number] in a mobile home. His family reportedly wants him to go to a care home since he is unable to care for himself and is living in very poor conditions. He is not drank any alcohol in quite some time and says he quit smoking about 2 months ago. Patient uses [facility] for pharmacy. DME in the home includes shower chair, nebulizer, and [facility] He does not have a healthcare POA. Plans are when patient is medically stable to transfer him to the transitional care unit for further rehab. Patient reports he is sick of his sons living with him, they were supposed to move out a long time ago and stay there anyway. There is not enough room in his trailer for everyone. His goals are to decrease his shortness of breath so he can at least walk to the bathroom independently without having to stop. Discussed follow-up when he leaves the hospital, reviewed recommendations from pulmonary Discussed palliative care and potential services we could offer. He is currently sitting up in the recliner, wearing 3 L of oxygen, breathing is stable. Feels like he has to have a bowel movement. He has had some constipation. Very thin and frail. [facility] Medical History (Updated 01/25/21 @ 11:49 by Mae Sterling, DESIREE-C) Acute hypoxemic respiratory failure Chronic hypercapnic respiratory failure Collapsed lung COPD (chronic obstructive pulmonary disease) COPD with acute exacerbation Hyperlipidemia Hypertension Seizure disorder Home Medications phenytoin sodium extended 200 mg PO BID 07/24/15 [History Last Taken Unknown] nebulizers #1 kit 07/25/15 [Rx Last Taken Unknown] ipratropium 0.5 mg-albuterol 3 mg (2.5 mg base)/3 mL nebulization soln 3 ml INHALATION Q4H.RT #180 ml 12/10/18 [Rx Last Taken Unknown] albuterol sulfate 2.5 mg INHALATION Q2H PRN PRN #180 ml 08/16/19 [Rx Last Taken Unknown] albuterol sulfate 90 mcg/actuation aerosol inhaler 1 - 2 puff INHALATION Q4H PRN PRN #1 inhaler 08/16/19 [Rx Last Taken Unknown] ipratropium 20 mcg-albuterol 100 mcg/actuation mist for inhalation 1 puff INHALATION Q6H #4 g 08/16/19 [Rx Last Taken Unknown] Allergy/AdvReac Type Severity Reaction Status Date / Time codeine AdvReac Nausea Verified 01/22/21 20:43 Family History Mother Lung disease Father Heart disease Social History Smoking Status: Former smoker Tobacco: How many years used: 50 ROS Constitutional Constitutional: Reports fatigue, weakness and weight loss Eyes Eyes: Denies change in vision ENT HEENT: Reports dry mouth; Denies nasal discharge or sore throat Cardiovascular Cardiovascular: Reports dyspnea on exertion; Denies chest pain, cyanosis, dizziness or flutter in chest Respiratory/Chest Respiratory/Chest: Reports chest congestion, cough and portable oxygen @ home; Denies difficulty clearing secretions, hemoptysis or wheezing Gastrointestinal Gastrointestinal: Reports constipation; Denies abdominal pain or nausea Genitourinary Genitourinary: Denies dysuria Musculoskeletal Musculoskeletal: Reports muscle weakness; Denies muscle spasms, numbness or tingling Integumentary Integumentary: Reports none Neurologic Neurologic: Reports other Details: hx seizures but none recently Psychiatric Psychiatric: Reports anxiety; Denies confusion or hallucinations Endocrine Endocrinology: Denies none Hematologic/Lymphatic Hematologic/Lymphatic: Reports anemia Physical Exam Const alert, oriented x3 and no apparent distress General Appearance: cooperative and disheveled Nutritional Appearance: cachectic and thin HEENT normocephalic and head/scalp atraumatic Neck supple General: trachea midline Resp Effort and Inspection: able to speak in complete sentences and symmetric chest movement Auscultation: diminished lung sounds diffuse; Negative for rales, rhonchi or wheezes Cardio regular rate, regular rhythm, S1 normal heart sound, S2 normal heart sound, no murmurs, no rub and no gallops GI normal to inspection, nondistended, normoactive bowel sounds Extremity General Extremity: edema and other findings Other Details: legs wrapped w/NIKKY Skin no rashes or lesions noted Skin Narrative: skin appears dirty, unkempt. patches of dirt on back Neuro CN's II-XII intact bilaterally and no focal motor deficits Psych activity/motor behavior normal Attitude: calm Activity / Motor Behavior: appropriate eye contact Speech: normal speech Mood & Affect: flat affect Insight: fair Judgement: fair
[2021-01-25] MEDS: Ferrous Sulfate 325 MG Tablet PO ×2 (12:10→17:09)
--- NOTE | 2021-01-25 12:39 | PCM.PN.HOSP ---
Subjective Subjective Patient was seen and examined. He still feels very short of breath. No acute events overnight. Objective Data Objective Data Vital Signs: Vital Signs Temp Pulse Resp BP Pulse Ox 97.8 F 84 20 H 102/59 L 96 01/25/21 10:41 01/25/21 10:41 01/25/21 10:41 01/25/21 10:41 01/25/21 11:13 Oxygen Flow Rate (L/min) 2 Oxygen Delivery Method Nasal Cannula Weight: 57.5 kg Body Mass Index (BMI) 18.0 Intake & Output: Intake and Output for Last 24 Hours 01/23/21 01/24/21 01/25/21 23:59 23:59 23:59 Intake Total 1670 / 1670 500 / 500 110 / 110 Output Total 2725 / 2725 1250 / 1500 500 / 500 Balance -1055 / -1055 -750 / -1000 -390 / -390 Lab / Micro Data Result Diagrams: 01/24/21 06:10 01/24/21 06:10 Labs: Laboratory Results - last 24 hr 01/22/21 01/23/21 01/25/21 23:00 06:55 05:20 Haptoglobin 49 RBC Folate Hemolysate 297.0 RBC Folate 1362 Hematocrit 21.8 L Phenytoin 15.5 Micro: Microbiology 01/22/21 21:00 Blood Culture (Wb) - Anticubital Right Blood Culture - Preliminary No growth in 48 hours. 01/23/21 10:10 Stool Stool Occult Blood (ANTONI) - Final 01/22/21 22:00 Stool Stool Occult Blood (ANTONI) - Final 01/22/21 21:00 Mucosa - Nose SARS-CoV-2 Antigen (Rapid) - Final Physical Exam Narrative Physical exam: General: Lethargic, in mild respiratory distress, looks unkempt, on 2 L of oxygen HEENT: Atraumatic Oral: Moist Mucosa Neck: Supple Lungs: Diminished entry Cardiovascular: HS I+II, regular, no murmurs Abdomen: Bowel Sounds Present, Soft, Non Tender Extremities: No edema Skin: No rashes, No breakdown Neurological: Grossly intact Psych/Mental Status: Flat affect Assessment & Plan Assessment/Plan (1) Acute hypoxemic respiratory failure: (2) Anemia requiring transfusions: (3) Adult failure to thrive: (4) Severe protein-calorie malnutrition: (5) COPD with acute exacerbation: (6) Seizure disorder: PLAN: 1. Lethargy secondary to hypercapnic respiratory failure, slowly improving Started on BiPAP, pulmonology following - appreciate recommendations 2. Acute hypoxic respiratory insufficiency secondary to acute COPD exacerbation, improving On 2 L of oxygen, continue with breathing treatments 3. Acute COPD exacerbation, mild, continue breathing treatments, IV solumedrol 4. Severe iron deficiency anemia, FOBT is negative Status post 2 units of packed RBCs, hemoglobin is 8.3 Patient will need outpatient colonoscopy Continue on oral iron with stool softeners 5. Debility, multifactorial, PT and OT to evaluate and treat 6. Seizures, level on admission was 3.3, Phenytoin level was 15.5 Will continue on Phenytoin BID 7. Severe calorie protein malnutrition, control system computer scientist consulted Charges/Coding Visit Charges Inpatient E&M: 83573 Subs Hosp L2
--- NOTE | 2021-01-25 15:06 | CASEMGMT ---
Addendum entered by Yvette Arias 01/25/21 15:49: AJ received call from Linnea with TCU stating pre-cert has been submitted. Original Note: Social Work Note PT/OT available. AJ placed a call to Linnea with TCU and left message to submit for pre-cert. Plan: TCU pending pre-cert Yvette Arias MERCERIZER, REFINERY OPERATOR HELPER CRUDE UNIT
[2021-01-25] MEDS: Phenytoin Na 100 MG Capsule 200 MG PO (17:09)
--- NOTE | 2021-01-25 19:10 | CPS ---
Pt refusing bipap currently and does not want to wear it.
[2021-01-25] MEDS: MELATONIN 3 MG TABLET PO (20:12)
[2021-01-26] VITALS (14 sets, daily range): BP systolic 113–120; BP diastolic 63–72; PULSE 74–100; RESP 14–22; TEMP 36.6–36.8; O2SAT 92–100
[2021-01-26] MEDS: Albuterol 2.5 MG/3 ML VIAL.NEB. INHALATION (03:30)
[2021-01-26 05:10] LABS: Absolute Lymphocyte Count 0.67 X10^3/uL (0.83-4.51); Absolute Neutrophil Count 5.8 X10^3/uL (2.0-7.7); Basophil# 0.03 X10^3/uL; Basophil% 0.4 % (0-1); Eosinophil# 0.04 X10^3/uL; Eosinophils% 0.6 % (0-5); Hematocrit 28.5 % (40-54); Hemoglobin 8.2 g/dL (13.0-16.5); Lymphocyte # 0.67 X10^3/ul (0.83-4.51); Lymphocyte % 9.5 % (19-41); Mean Corp Hgb Conc 28.8 g/dL (32-36); Mean Corpuscular Hgb 23.3 pg (27.0-32.0); Mean Platelet Vol. 9.9 fl (6.2-12.0); Monocyte# 0.49 X10^3/uL; NRBC Flagged by Analyzer 0 % (0-5); Neutrophil # 5.78 X10^3/uL (2.7-7.7); Neutrophil % 82.2 % (47-70); Platelet Count 173 K/mm3 (150-450); RBC Distribution Width CV 18.4 % (11.6-14.6); RBC Distribution Width SD 51.3 fl (35.1-43.9); Red Blood Count 3.52 M/mm3 (4.6-6.2)
[2021-01-26 05:31] LABS: Anion Gap 3 (5-15); BUN 17 mg/dL (7-18); BUN/Creat Ratio 33.9 RATIO (10-20); Calcium,Total 8.4 mg/dL (8.5-10.1); Chloride 97 mmol/L (98-107); EST Glomerular Filtration Rate 178 mL/min (>60); Est Glom Filt Rate - Afr Amer 215 mL/min (>60); Glucose 108 mg/dL (74-106); Magnesium 2.3 mg/dL (1.6-2.6); Phosphorus 3.5 mg/dL (2.5-4.9); Potassium 4.7 mmol/L (3.5-5.1); Sodium Level 139 mmol/L (136-145)
[2021-01-26] MEDS: Ipratropium/Albuterol Sulfate 3 ML AMPUL.NEB INHALATION ×3 (07:09→14:40)
--- NOTE | 2021-01-26 08:20 | PCM.PN.INT ---
Assessment & Plan Assessment/Plan (1) Chronic hypercapnic respiratory failure: (2) COPD with acute exacerbation: (3) Severe protein-calorie malnutrition: (4) Adult failure to thrive: (5) Anemia requiring transfusions: (6) Seizure disorder: (7) Hyperlipidemia: QUALIFIERS: Hyperlipidemia type: unspecified Qualified Code(s): E78.5 - Hyperlipidemia, unspecified PLAN: RECOMMENDATIONS: 1. Continue to recommend BiPAP with sleep 2. Agree with steroids, bronchodilators. Keep steroids at current dosing for now 3. Consider avoiding Ativan as this may increase risk of delirium 4. Consider outpatient low-dose CT scan and PFT IMPRESSIONS: 1. Acute on chronic combined respiratory failure Unclear if patient had loss of hypoxic drive versus respiratory muscle fatigue associated with an acute COPD exacerbation. Patient does have significant hyperinflation on chest x-ray. Agree with steroids and bronchodilators. Patient is not reporting a significant productive cough, so mucolytic is likely not necessary. Stressed to the patient the importance of using BiPAP for rescue overnight, but patient appears to be precontemplative. Anticipate slow recovery. No previous PFT, but imaging is suggestive of advanced lung disease. We will keep steroids at current dosing for now, but possibly switch to prednisone in 24 to 48 hours. Do think patient will likely require placement on discharge 2. Debility/severe protein calorie malnutrition Patient with significant weight loss over the last 3 to 6 months. Unclear if this is secondary to decreased p.o. intake or a possible secondary process such as malignancy. Patient would be at risk for cancer, but no nodules are noted on chest x-ray. Patient would qualify for low-dose CT scan by latest criteria, but this should be completed as an outpatient. PT/OT and dietitian will be helpful. Patient may require placement. 3. Seizure disorder/severe iron deficiency anemia/failure to thrive Complicates care, management, recovery and prognosis. Patient has not had any seizure activity, but was loaded with Dilantin on presentation. Defer to primary service. Patient did have an anemia, which would be poorly compensated given his underlying COPD. Agree with hemoglobin goal above 7. Patient may have dietary deficiency of iron leading to current status versus ongoing blood loss. Laboratory work-up was relatively unremarkable. No seizure activity has been reported. Subjective Subjective Patient did okay overnight. No acute issues were reported, but patient did not comply with BiPAP therapy. Patient continues to report shortness of breath with exertion. However, patient does believe he is subjectively improved compared to yesterday. Objective Data Objective Data Vital Signs: Vital Signs Temp Pulse Resp BP Pulse Ox 36.8 C 80 20 H 120/63 99 01/26/21 02:21 01/26/21 07:09 01/26/21 07:09 01/26/21 02:21 01/26/21 07:09 Oxygen Flow Rate (L/min) 2 Oxygen Delivery Method Nasal Cannula Weight: 58.627 kg Body Mass Index (BMI) 18.0 Intake & Output: Intake and Output for Last 24 Hours 01/24/21 01/25/21 01/26/21 23:59 23:59 23:59 Intake Total 500 / 500 1375.83 / 1375.83 600 / 600 Output Total 1250 / 1500 2125 / 2125 975 / 975 Balance -750 / -1000 -749.17 / -749.17 -375 / -375 Lab / Micro Data Result Diagrams: 01/26/21 04:45 01/26/21 04:45 Labs: Laboratory Results - last 24 hr 01/26/21 01/26/21 04:45 04:45 WBC 7.0 RBC 3.52 L Hgb 8.2 L Hct 28.5 L MCV 81.0 MCH 23.3 L MCHC 28.8 L D RDW Std Deviation 51.3 H RDW Coeff of Popeye 18.4 H Plt Count 173 MPV 9.9 Immature Gran % (Auto) 0.300 Neut % (Auto) 82.2 H Lymph % (Auto) 9.5 L [place] % (Auto) 7.0 Eos % (Auto) 0.6 Baso % (Auto) 0.4 Absolute Neuts (auto) 5.8 Absolute Lymphs (auto) 0.67 L Nucleated RBC % 0 Sodium 139 Potassium 4.7 Chloride 97 L Carbon Dioxide 39.0 H Anion Gap 3 L BUN 17 Creatinine 0.50 L Estim Creat Clear Calc 125.40 Est GFR (MDRD) Af Amer 215 Est GFR (MDRD) Non-Af 178 BUN/Creatinine Ratio 33.9 H Glucose 108 H Calcium 8.4 L Phosphorus 3.5 Magnesium 2.3 Micro: Microbiology 01/22/21 20:44 Blood Culture (Wb) - Anticubital Left Blood Culture - Preliminary No growth in 48 hours. 06/07/21 21:00 Blood Culture (Wb) - Anticubital Right Blood Culture - Preliminary No growth in 48 hours. 01/23/21 10:10 Stool Stool Occult Blood (ANTONI) - Final 01/22/21 22:00 Stool Stool Occult Blood (ANTONI) - Final 01/22/21 21:00 Mucosa - Nose SARS-CoV-2 Antigen (Rapid) - Final Physical Exam Const oriented x3 and no apparent distress General Appearance: frail; Negative for in distress HEENT normocephalic and head/scalp atraumatic; Negative for moist oral mucous membranes Eyes PERRL, EOMs intact bilaterally and conjunctivae normal Neck full ROM Lymph Lymphatic: no lymphadenopathy noted Resp normal respiratory effort and no use of accessory muscles Auscultation: wheezes expiratory wheezes and diminished lung sounds; Negative for rales or rhonchi Cardio S1 normal heart sound, S2 normal heart sound, no murmurs, no rub, no gallops and no JVD Rate: tachycardic Rhythm: abnormal rhythm irregularly irregular GI normal to inspection, nondistended, normoactive bowel sounds Extremity General Extremity: clubbing and edema; Negative for cyanosis Skin no rashes or lesions noted Neuro oriented x3 and CN's II-XII intact bilaterally Psych cooperative Mood & Affect: apathetic and flat affect Charges/Coding Visit Charges Inpatient E&M: 63015 Subs Hosp L2
[2021-01-26] MEDS: Phenytoin Na 100 MG Capsule 200 MG PO ×2 (08:46→17:47)
[2021-01-26] MEDS: 0.9% Saline Lock 10 ML Syringe IV (09:47)
--- NOTE | 2021-01-26 10:24 | CASEMGMT ---
Addendum entered by Yvette Arias 01/26/21 15:17: SW received call from Linnea with TCU stating pt was approved for TCU and can discharge today. SW updated physician. Pt can discharge to TCU today. RN then updated this worker that pt was told today he basically has six months to live as his lungs are bad. SW in to speak with pt and pt's son Cleve. SW provided support. SW informed pt and Cleve that pt was approved for TCU and will be discharged there today. AJ explained that once pt is on TCU, they will work with pt on next steps for pt whether that be Hospice/Palliative, long term care social worker at SNF, Home, etc. Pt and Cleve state understanding. Plan: TCU today Original Note: Social Work Note Pt is medically ready for discharge. AJ placed a call to Linnea with TCU, pre-cert is still pending. Plan: TCU pending pre-cert Yvette Arias GRIEF COUNSELOR, NAME PLATE STAMPING MACHINE OPERATOR
[2021-01-26] MEDS: Furosemide 40 MG/4 ML Vial IV (11:27)
[2021-01-26] MEDS: Docusate Sodium 100 MG Capsule PO (11:27)
[2021-01-26] MEDS: Ferrous Sulfate 325 MG Tablet PO ×2 (12:01→17:47)
--- NOTE | 2021-01-26 14:26 | TREXTCAR_ITS ---
Diet 01/23/21 00:15 Diet: Regular - General Food consistency:: Regular Liquid Consistency:: Regular/Thin Dietary Modifications:: Fortified Foods Type of Dietary Supplement:: Magic Cup Dessert Diet Comments: Magic Cup BID w/ lunch and dinner Routine Orders/Code Status O2 Liters per Minute: 2 O2 Frequency: Continuous Keep PO Greater than or Equal to (%): 92 Routine Lab Work: CBC (within 3 days) and BMP (within 3 days) Code Status: DNRCC-A Therapies Weight Bearing: Weight bearing as tolerated Physical Therapy: Eval and Treat Occupational Therapy: Eval and Treat Problem/Diagnosis (1) Chronic hypercapnic respiratory failure: Status: Chronic (2) COPD with acute exacerbation: Status: Acute (3) Severe protein-calorie malnutrition: Status: Acute (4) Adult failure to thrive: Status: Acute (5) Anemia requiring transfusions: Status: Acute (6) Seizure disorder: Status: Chronic (7) Hyperlipidemia: Status: Chronic Allergies/Procedures Done in Hospital Allergies codeine Adverse Reaction (Verified 01/22/21 20:43) Nausea Procedures: 2-D Echocardiogram Type of Care/Length of Stay Estimated LOS: Convalescent Care Less Than 30 days Type of Care Needed: Skilled Rehab Potential: Good Prognosis: Good Additional Orders/Day of Discharge Additional Orders: Palliative Care Day of Discharge: 01/26/21 Dietary and Speech Recommendations Dietitian Recommendations/Changes: Will continue regular diet, will fortified foods when possible. Will add magic cup BID with lunch and dinner for additional calories/protein if consumed. Continue 120mL ensure enlive 4x/day with medpass as ordered. Consider TF support if PO remains suboptimal and wt continues to decline. Discharge Plan Admission Admit Date/Time: 01/22/21 23:24 Primary Reason for Your Visit: Acute respiratory failure/COPD/severe anemia Attending Provider: Jeni Bolaños Primary Care Provider: Tho Steen Consulting Providers: Steve Saleem ; Radha Medina ; Srinivasan Pimentel ; Yulia Louis ; Mae Sterling ; Betsy Felix ; Salina Michael BIRD CAGE ASSEMBLER Instructions Additional Instructions / Restrictions: Continue on BiPAP at 11/6 at a rate of 12. Patient has to wear the BiPAP for naps and for sleeping. Patient will need a palliative care/hospice referral at discharge. Needs outpatient CT scan after discharge Discharge Orders/Prescriptions Prescriptions: New ferrous sulfate [FeroSul] 325 mg (65 mg iron) Tablet 325 mg PO 1200,1700 Qty: 0 RF: 0 Ensure Enlive 0.08 gram-1.5 kcal/mL Liquid 120 ml PO 4X/DAY Qty: 0 RF: 0 pantoprazole 40 mg tablet,delayed release (DR/EC) 40 mg PO BID Qty: 60 RF: 0 docusate sodium [Colace] 100 mg capsule 100 mg PO BID Qty: 60 RF: 0 prednisone 10 mg tablet See Taper mg PO DAILY Qty: 30 RF: 0 furosemide [Lasix] 20 mg tablet 20 mg PO BID Qty: 60 RF: 0 sertraline [Zoloft] 50 mg tablet 50 mg PO DAILY Qty: 60 RF: 0 Continued ipratropium-albuterol 0.5 mg-3 mg(2.5 mg base)/3 mL solution for nebulization 3 ml inhalation Q4H.RT Qty: 180 RF: 6 phenytoin sodium extended 100 MG capsule 200 mg PO BID RF: 0 albuterol sulfate 2.5 mg /3 mL (0.083 %) solution for nebulization 2.5 mg inhalation Q2H PRN PRN (Reason: dypsnea, wheezing) Qty: 180 RF: 6 Combivent Respimat 20-100 mcg/actuation mist 1 puff INHALATION Q6H Qty: 4 RF: 6 Discontinued (DME) nebulizers 1 EACH kit 1 ea MC UD Qty: 1 RF: 0 albuterol sulfate 90 mcg/actuation HFA aerosol inhaler 1 - 2 puff inhalation Q4H PRN PRN (Reason: Sob &/Or Wheezing) Qty: 1 RF: 6 Referrals / Follow Up: Tho Steen MD [Primary Care Provider] - Diane Harris NP, BIRD CAGE ASSEMBLER-C [Nurse Practitioner] - Within 2 Weeks Disposition Disposition (needs filled in before D/C Order can be placed): [facility]
--- NOTE | 2021-01-26 14:51 | DS.PCM_ITS ---
Providers Date of Admission: 01/22/21 Date of Discharge: 01/26/21 Primary Care Physician: Dr. Tho Steen MD Consultations 01/24/21 09:44 Consult: Forklift Technician / Pulmonary Medicine Routine Consulting Provider: Steve Saleem Reason for Consult: Acute resp failure EMERGENT Consult: No Notified: Yes Date Notified: 01/24/21 Time Notified: 09:44 Method of Notification: Text 01/24/21 21:47 Consult: Hospice / Palliative Care Routine Consulting Provider: [facility] Reason for Consult: COPD, family would like to discuss services and options EMERGENT Consult: No Notified: Yes Date Notified: 01/25/21 Time Notified: 08:42 Method of Notification: office Reason For Visit: ANEMIA, FAILURE TO THRIVE Diagnosis Discharge Diagnosis (1) Chronic hypercapnic respiratory failure: Status: Chronic Code(s): J96.12 - Chronic respiratory failure with hypercapnia (2) COPD with acute exacerbation: Status: Acute Code(s): J44.1 - Chronic obstructive pulmonary disease with (acute) exacerbation (3) Severe protein-calorie malnutrition: Status: Acute Code(s): E43 - Unspecified severe protein-calorie malnutrition (4) Adult failure to thrive: Status: Acute Code(s): R62.7 - Adult failure to thrive (5) Anemia requiring transfusions: Status: Acute Code(s): D64.9 - Anemia, unspecified (6) Seizure disorder: Status: Chronic Code(s): G40.909 - Epilepsy, unspecified, not intractable, without status epilepticus (7) Hyperlipidemia: Status: Chronic Code(s): E78.5 - Hyperlipidemia, unspecified Qualifiers: Hyperlipidemia type: unspecified Qualified Code(s): E78.5 - Hyperl ipidemia, unspecified Medications at Discharge Home Medications phenytoin sodium extended 200 mg PO BID 07/24/15 ipratropium 0.5 mg-albuterol 3 mg (2.5 mg base)/3 mL nebulization soln 3 ml INHALATION Q4H.RT #180 ml 12/10/18 albuterol sulfate 2.5 mg INHALATION Q2H PRN PRN #180 ml 08/16/19 ipratropium 20 mcg-albuterol 100 mcg/actuation mist for inhalation 1 puff INHALATION Q6H #4 g 08/16/19 docusate sodium [Colace] 100 mg PO BID #60 cap 01/26/21 ferrous sulfate [FeroSul] 325 mg PO 1200,1700 #0 tab 01/26/21 food supplemt, lactose-reduced [Ensure Enlive] 120 ml PO 4X/DAY #0 ml 01/26/21 furosemide [Lasix] 20 mg PO BID #60 tab 01/26/21 pantoprazole 40 mg PO BID #60 tab 01/26/21 prednisone See Taper PO DAILY #30 tab 01/26/21 sertraline [Zoloft] 50 mg PO DAILY #60 tab 01/26/21 Hospital Course Operations None Procedures 2-D Echocardiogram Summary of Care Provided Minutes Spent on Discharge: 50 Hospital Course: 65-year-old male with past medical history of COPD with chronic hypercapnic respiratory failure, on 3 L of oxygen at home who presented with progressive shortness of breath. Patient stated that he is not able to take care of himself. Patient son reports that patient urinates into bottles and is not able to get up and go to the bathroom. He admitted to a productive cough. His work-up in the ED showed a hemoglobin of 6.7. His hemoglobin 2 years ago was 14. Patient's work-up was significant for iron deficiency anemia. He received 2 units of packed RBC. He had 2D echo done that showed EF of 65%, no diastolic dysfunction. Doppler ultrasound of lower extremity was negative for acute DVT. Patient was managed on IV Solu-Medrol, breathing treatments as well as azithromycin for COPD exacerbation. He was seen by pulmonology. He was put on BiPAP but did not tolerate it during the hospital stay. Changes were made to his settings on the day of discharge. Patient was seen by PT and OT and skilled for discharge to SNF. He will need outpatient CT scans to follow-up on rapid weight loss. Throughout his hospital stay, patient was very dyspneic on minimal exertion. He was seen by palliative care. I also talked to him about hospice. These should be considered at discharge from [facility]. Physical Exam Narrative General: Appears frail, in mild respiratory distress, looks unkempt, on 3 L of oxygen HEENT: Atraumatic Oral: Moist Mucosa Neck: Supple Lungs: Diminished entry, scattered wheezes Cardiovascular: HS I+II, regular, no murmurs Abdomen: Bowel Sounds Present, Soft, Non Tender Extremities: No edema Skin: No rashes, No breakdown Neurological: Grossly intact Psych/Mental Status: Flat affect Weight / BMI Weight Weight: 58.627 kg Body Mass Index (BMI) 18.0 ABG / Lab / Microbiology Data Result Diagrams: 01/26/21 04:45 01/26/21 04:45 Laboratory: Laboratory Results - last 24 hr 01/26/21 01/26/21 04:45 04:45 WBC 7.0 RBC 3.52 L Hgb 8.2 L Hct 28.5 L MCV 81.0 MCH 23.3 L MCHC 28.8 L D RDW Std Deviation 51.3 H RDW Coeff of Popeye 18.4 H Plt Count 173 MPV 9.9 Immature Gran % (Auto) 0.300 Neut % (Auto) 82.2 H Lymph % (Auto) 9.5 L Baker % (Auto) 7.0 Eos % (Auto) 0.6 Baso % (Auto) 0.4 Absolute Neuts (auto) 5.8 Absolute Lymphs (auto) 0.67 L Nucleated RBC % 0 Sodium 139 Potassium 4.7 Chloride 97 L Carbon Dioxide 39.0 H Anion Gap 3 L BUN 17 Creatinine 0.50 L Estim Creat Clear Calc 125.40 Est GFR (MDRD) Af Amer 215 Est GFR (MDRD) Non-Af 178 BUN/Creatinine Ratio 33.9 H Glucose 108 H Calcium 8.4 L Phosphorus 3.5 Magnesium 2.3 Microbiology: Microbiology 01/22/21 20:44 Blood Culture - Preliminary Blood Culture (Wb) - Anticubital Left No growth in 48 hours. Microbiology 01/22/21 20:44 Blood Culture (Wb) - Anticubital Left Blood Culture - Preliminary No growth in 48 hours. 01/22/21 21:00 Blood Culture (Wb) - Anticubital Right Blood Culture - Preliminary No growth in 48 hours. 01/23/21 10:10 Stool Stool Occult Blood (ANTONI) - Final 01/22/21 22:00 Stool Stool Occult Blood (ANTONI) - Final 01/22/21 21:00 Mucosa - Nose SARS-CoV-2 Antigen (Rapid) - Final D/C Instructions Discharge Diet: No restrictions Discharge Activity: Return to Normal Activity Meaningful Use Info Meaningful Use Diagnoses (Choose all that apply): None applicable Discharge Plan Admission Admit Date/Time: 01/22/21 23:24 Primary Reason for Your Visit: Acute respiratory failure/COPD/severe anemia Attending Provider: Jeni Bolaños Primary Care Provider: Tho Steen Consulting Providers: Steve Saleem ; Radha Medina ; Srinivasan Pimentel ; Yulia Louis ; Mae Sterling ; Betsy Felix ; Salina Michael OCCUPATIONAL THERAPY INSTRUCTOR Instructions Additional Instructions / Restrictions: Continue on BiPAP at 11/6 at a rate of 12. Patient has to wear the BiPAP for naps and for sleeping. Patient will need a palliative care/hospice referral at discharge. Needs outpatient CT scan after discharge Discharge Orders/Prescriptions Prescriptions: New ferrous sulfate [FeroSul] 325 mg (65 mg iron) Tablet 325 mg PO 1200,1700 Qty: 0 RF: 0 Ensure Enlive 0.08 gram-1.5 kcal/mL Liquid 120 ml PO 4X/DAY Qty: 0 RF: 0 pantoprazole 40 mg tablet,delayed release (DR/EC) 40 mg PO BID Qty: 60 RF: 0 docusate sodium [Colace] 100 mg capsule 100 mg PO BID Qty: 60 RF: 0 prednisone 10 mg tablet See Taper mg PO DAILY Qty: 30 RF: 0 furosemide [Lasix] 20 mg tablet 20 mg PO BID Qty: 60 RF: 0 sertraline [Zoloft] 50 mg tablet 50 mg PO DAILY Qty: 60 RF: 0 Continued ipratropium-albuterol 0.5 mg-3 mg(2.5 mg base)/3 mL solution for nebulization 3 ml inhalation Q4H.RT Qty: 180 RF: 6 phenytoin sodium extended 100 MG capsule 200 mg PO BID RF: 0 albuterol sulfate 2.5 mg /3 mL (0.083 %) solution for nebulization 2.5 mg inhalation Q2H PRN PRN (Reason: dypsnea, wheezing) Qty: 180 RF: 6 Combivent Respimat 20-100 mcg/actuation mist 1 puff INHALATION Q6H Qty: 4 RF: 6 Discontinued (DME) nebulizers 1 EACH kit 1 ea MC UD Qty: 1 RF: 0 albuterol sulfate 90 mcg/actuation HFA aerosol inhaler 1 - 2 puff inhalation Q4H PRN PRN (Reason: Sob &/Or Wheezing) Qty: 1 RF: 6 Referrals / Follow Up: Tho Steen MD [Primary Care Provider] - Diane Harris NP, OCCUPATIONAL THERAPY INSTRUCTOR-C [Nurse Practitioner] - Within 2 Weeks Disposition Disposition (needs filled in before D/C Order can be placed): [facility] Charges/Coding Visit Charges Inpatient E&M: 40963 Disch Hosp
--- NOTE | 2021-01-26 15:29 | CPS ---
Made setting changes on Bipap for patient comfort per Dr. Bolaños. Settings are now 11/6 with a rate of 14. Patient wore that Bipap for about 15-20 minutes, but then wanted it off to visit with his son. He states that the settings are more comfortable and that he will attempt to wear it tonight.
== END 2021-01-26 18:41 | disposition skilled nursing facility (03) | DRG 190 ==
LOC: ED 22:04 → MS3 23:55
PROVIDERS: Internal Medicine Critical Care Medicine; Nurse Practitioner Family; Admitting Provider Hospitalist; Emergency Provider Emergency Medicine; PCP Family Medicine; Visit Provider Internal Medicine
DX: J44.1 Chronic obstructive pulmonary disease with (acute) exacerbation (principal); E43 Unspecified severe protein-calorie malnutrition; J96.01 Acute respiratory failure with hypoxia; Z68.1 Body mass index [BMI] 19.9 or less, adult; J96.12 Chronic respiratory failure with hypercapnia; E87.2 Acidosis; J98.19 Other pulmonary collapse; E78.5 Hyperlipidemia, unspecified; I10 Essential (primary) hypertension; R62.7 Adult failure to thrive; G40.909 Epilepsy, unspecified, not intractable, without status epilepticus; D50.9 Iron deficiency anemia, unspecified; Z87.891 Personal history of nicotine dependence; Z66 Do not resuscitate; Z82.49 Family history of ischemic heart disease and other diseases of the circulatory system
CPT/HCPCS: 36415; 36600; 71045; 80048; 80053; 80185; 81001; 82274; 82607; 82728; 82747; 82803; 83010; 83540; 83550; 83605; 83615; 83735; 83880; 84100; 84484; 85014; 85025; 85045; 85610; 85730; 86850; 86900; 86901; 86920; 86922; 87040; 87426; 93005; 93306; 93970; 94002; 94003; 94640; 97162; 97166; 97530; 97535; 97802; 97803; 99251; 99285; 99406; J7040; J7050; P9016; Q9957; A4216; G0463; J1940; J3490

== ENCOUNTER 2021-01-26 18:51 | Inpatient (IN) | payer MEDICARE, SELFPAY ==
[2021-01-23 12:46] VITALS: BMI 18.0
[2021-01-26 18:55] VITALS: BP 135/74; PULSE 94; RESP 22; TEMP 37.2
[2021-01-26 19:15] VITALS: RESP 20; O2SAT 97
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
[2021-01-26] MEDS: Magnesium Citrate 300 ML PO (22:39)
[2021-01-26] MEDS: Pantoprazole Sodium 40 MG Tablet PO (22:42)
[2021-01-26 23:17] VITALS: PULSE 86; RESP 16
[2021-01-26] MEDS: Ipratropium/Albuterol Sulfate 3 ML AMPUL.NEB INHALATION (23:17)
[2021-01-27] VITALS (7 sets, daily range): BP systolic 116–118; BP diastolic 73–77; PULSE 78–96; RESP 14–21; TEMP 36.6–36.8; O2SAT 98–99; BMI 16.8
[2021-01-27] MEDS: Polyethylene Glycol 3350 17 GM PACKET PO (04:24)
[2021-01-27] MEDS: Furosemide 20 MG Tablet PO ×2 (04:24→17:00)
[2021-01-27] MEDS: Pantoprazole Sodium 40 MG Tablet PO ×2 (04:24→17:00)
[2021-01-27] MEDS: Sertraline 50 MG Tablet PO (04:25)
[2021-01-27] MEDS: Senna/Docusate Sodium 1 Tablet PO ×2 (04:25→17:00)
[2021-01-27] MEDS: Bisacodyl 5 MG Tablet 10 MG PO ×2 (04:30→11:20)
[2021-01-27 06:23] LABS: Absolute Lymphocyte Count 0.75 X10^3/uL (0.83-4.51); Absolute Neutrophil Count 5.2 X10^3/uL (2.0-7.7); Basophil# 0.04 X10^3/uL; Basophil% 0.6 % (0-1); Eosinophil# 0.34 X10^3/uL; Eosinophils% 4.9 % (0-5); Hematocrit 29.2 % (40-54); Hemoglobin 8.3 g/dL (13.0-16.5); Lymphocyte # 0.75 X10^3/ul (0.83-4.51); Lymphocyte % 10.9 % (19-41); Mean Corp Hgb Conc 28.4 g/dL (32-36); Mean Corpuscular Hgb 22.8 pg (27.0-32.0); Mean Corpuscular Volume 80.2 fL (80-94); Mean Platelet Vol. 9.4 fl (6.2-12.0); Monocyte# 0.56 X10^3/uL; Monocyte% 8.2 % (0-10); NRBC Flagged by Analyzer 0 % (0-5); Neutrophil # 5.15 X10^3/uL (2.7-7.7); Platelet Count 188 K/mm3 (150-450); RBC Distribution Width CV 19.1 % (11.6-14.6); RBC Distribution Width SD 53.9 fl (35.1-43.9); Red Blood Count 3.64 M/mm3 (4.6-6.2); White Blood Count 6.9 K/mm3 (4.4-11.0)
[2021-01-27 06:56] LABS: Anion Gap 0 (5-15); BUN 23 mg/dL (7-18); Calcium,Total 8.6 mg/dL (8.5-10.1); Chloride 97 mmol/L (98-107); Creatinine, Serum 0.52 mg/dL (0.70-1.30); EST Glomerular Filtration Rate 169 mL/min (>60); Est Glom Filt Rate - Afr Amer 205 mL/min (>60); Glucose 107 mg/dL (74-106); Potassium 4.4 mmol/L (3.5-5.1); Sodium Level 140 mmol/L (136-145)
[2021-01-27] MEDS: predniSONE 20 MG Tablet PO (08:06)
[2021-01-27] MEDS: Phenytoin Na 100 MG Capsule 200 MG PO ×2 (08:06→16:59)
[2021-01-27] MEDS: Tuberculin,Purif.prot.deriv. 50 TU/ML Vial 0.1 ML ID (10:57)
[2021-01-27] MEDS: Ipratropium/Albuterol Sulfate 3 ML AMPUL.NEB INHALATION ×3 (11:15→22:20)
[2021-01-27] MEDS: Ferrous Sulfate 325 MG Tablet PO ×2 (11:17→17:00)
[2021-01-28] VITALS (9 sets, daily range): BP systolic 105–121; BP diastolic 71; PULSE 75–97; RESP 14–20; TEMP 36.8; O2SAT 98–100
--- NOTE | 2021-01-28 01:22 | NURSING ---
Patient pleasant and cooperative. No c/o pain at this time. Pt sleeping upright in bed with BPap on per order.
[2021-01-28] MEDS: Ipratropium/Albuterol Sulfate 3 ML AMPUL.NEB INHALATION ×6 (03:00→23:00)
[2021-01-28] MEDS: Polyethylene Glycol 3350 17 GM PACKET PO (05:06)
[2021-01-28] MEDS: Furosemide 20 MG Tablet PO ×2 (05:07→16:57)
[2021-01-28] MEDS: Sertraline 50 MG Tablet PO (05:07)
[2021-01-28] MEDS: Pantoprazole Sodium 40 MG Tablet PO ×2 (05:07→16:57)
[2021-01-28] MEDS: Senna/Docusate Sodium 1 Tablet PO ×2 (05:07→16:57)
[2021-01-28] MEDS: Phenytoin Na 100 MG Capsule 200 MG PO ×2 (08:26→16:57)
[2021-01-28] MEDS: predniSONE 20 MG Tablet PO (08:27)
[2021-01-28] MEDS: Ferrous Sulfate 325 MG Tablet PO ×2 (11:27→16:57)
[2021-01-29] VITALS (11 sets, daily range): BP systolic 107–126; BP diastolic 63–72; PULSE 71–89; RESP 14–22; TEMP 36.1–36.6; O2SAT 98–99; BMI 16.8
--- NOTE | 2021-01-29 03:00 | NURSING ---
Pt awake and alert. Meds taken without difficulty. \wearing O2 and pulse ox at 98%. No c/o pain at this time.
[2021-01-29] MEDS: Ipratropium/Albuterol Sulfate 3 ML AMPUL.NEB INHALATION ×6 (03:05→23:15)
[2021-01-29] MEDS: Polyethylene Glycol 3350 17 GM PACKET PO (04:53)
[2021-01-29] MEDS: Furosemide 20 MG Tablet PO ×2 (04:54→17:41)
[2021-01-29] MEDS: Pantoprazole Sodium 40 MG Tablet PO ×2 (04:54→17:41)
[2021-01-29] MEDS: Sertraline 50 MG Tablet PO (04:54)
[2021-01-29] MEDS: Senna/Docusate Sodium 1 Tablet PO ×2 (04:54→17:41)
[2021-01-29] MEDS: predniSONE 20 MG Tablet PO (08:11)
[2021-01-29] MEDS: Phenytoin Na 100 MG Capsule 200 MG PO ×2 (08:11→17:40)
--- NOTE | 2021-01-29 10:11 | MDS.RN ---
attempted to contact sonCleve regarding upcoming plan of care meeting, voicemail full.
--- NOTE | 2021-01-29 10:24 | MDS.RN ---
sonCleve, returned call
[2021-01-29] MEDS: Ferrous Sulfate 325 MG Tablet PO ×2 (11:47→17:41)
[2021-01-29 12:42] LABS: Phenytoin (Dilantin) Level 18.9 mL (10.0-20.0)
--- NOTE | 2021-01-29 14:55 | EX.NTREPO ---
Medical Nutrition Therapy - History Nutrition Services has been consulted to:: Manage nutrient details of diet order Current diet/nutrition support order:: Regular w/ 120 ml ensure enlive 4x/day w/ medpass. - Anthropometric Measurements Height:: 6 ft 0.05 in Weight:: 56.444 kg Body Mass Index (BMI):: 16.8 - Relevant Labs Relevant Labs:: RBC 3.64 M/mm3 (4.6-6.2) L 01/27/21 06:13 Hgb 8.3 g/dL (13.0-16.5) L 01/27/21 06:13 Hct 29.2 % (40-54) L 01/27/21 06:13 MCH 22.8 pg (27.0-32.0) L 01/27/21 06:13 MCHC 28.4 g/dL (32-36) L 01/27/21 06:13 RDW Std Deviation 53.9 fl (35.1-43.9) H 01/27/21 06:13 RDW Coeff of Popeye 19.1 % (11.6-14.6) H 01/27/21 06:13 Neut % (Auto) 75.0 % (47-70) H 01/27/21 06:13 Lymph % (Auto) 10.9 % (19-41) L 01/27/21 06:13 Absolute Lymphs (auto) 0.75 X10^3/uL (0.83-4.51) L 01/27/21 06:13 Chloride 97 mmol/L (98-107) L 01/27/21 06:13 Carbon Dioxide 43.0 mmol/L (21.0-32.0) H 01/27/21 06:13 Anion Gap 0 (5-15) L 01/27/21 06:13 BUN 23 mg/dL (7-18) H 01/27/21 06:13 Creatinine 0.52 mg/dL (0.70-1.30) L 01/27/21 06:13 BUN/Creatinine Ratio 44.0 RATIO (10-20) H 01/27/21 06:13 Glucose 107 mg/dL (74-106) H 01/27/21 06:13 - Assessment Food and Nutrient Intake: PO intake on TCU good - no issues eating/swallowing noted. Res is accepting of ONS at medpass and agreeable to having ensure pudding or magic cup w/ meals for increased nutrition if consumed. Res states appetite has been poor the majority of the past year d/t different situations, but would not elaborate when asked. UBW: 70.45 kg - unintended wt loss of 19.9% x 1 yr and 6.5% x 1 wk. Wt loss indicative of malnutrition. - Nutrition Diagnosis: Clinical Problem Chronic Disease or Condition Related Malnutrition Clinical Problem - Etiology: related to adult failure to thrive Clinical Problem - Signs/Symptoms: as evidenced by overall decreased appetite in past year and 6.5% wt loss x 1 wk and 19.9% wt loss x 1 yr. Res also with obvious fat/muscle loss of protruding clavicle, orbital/temporal regions, rib cage. Status: Active Problem - Protein Calorie Malnutrition Evidence of Malnutrition Exists: Yes Severe Protein Calorie Malnutrition:: Chronic - Nutrition Intervention Nutrition Prescription: 2281-5006 jeremiah/day (RMR x 1.2-1.3 maintenance) - for wt gain +250 jeremiah/day = 1825 - 1957 jeremiah/day. 56-67 gm pro/day (1-1.2 gm/kg). 1860 ml fluid/day (per ASPEN guidelines) - Food / Nutrient Delivery Interventions Summary of nutrition intervention:: Provide oral nutrition supplement Nutrition support ordered as / adjusted to:: Will continue liberal regular diet with ensure pudding or magic cup w/ meals for increased nutrition if consumed. Will continue ensure enlive w/ medpass 4x/day - MNT Monitoring Active Nutrition Patient: Yes Nutrition Status: Requires Follow Up 7-9 Days - if questions, please call RD/LD at [phone]
--- NOTE | 2021-01-29 15:47 | CASEMGMT ---
Social Work. See attached for complete social work assessment. Patient reports to be frustrated with current health status. Patient reports fear of going to sleep I might just not wake up. This home health care social worker provided active support. This home health care social worker broached topic of Palliative Care for patient, patient is agreeable to referral being placed. Patient does confirm to be a DNRCC-A and MOLST form completed. Order for Palliative Care referral placed. Telephone call to Rosa with Palliative Care to update on referral. Demographic information and screening tool faxed to Rosa. Social Work to continue to follow as needed. Marti Fernandez MSW, LOWELL
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
--- NOTE | 2021-01-29 23:24 | NURSING ---
Breathing tx given and assisted with Bipap by RT. Pt states his room feels much better since we gave him a fan, appreciative.
[2021-01-30] VITALS (9 sets, daily range): BP systolic 103–109; BP diastolic 57–71; PULSE 80–92; RESP 16–28; TEMP 36.1–36.9; O2SAT 94–99
[2021-01-30] MEDS: Ipratropium/Albuterol Sulfate 3 ML AMPUL.NEB INHALATION ×6 (02:47→22:45)
[2021-01-30] MEDS: Polyethylene Glycol 3350 17 GM PACKET PO (06:20)
[2021-01-30] MEDS: Senna/Docusate Sodium 1 Tablet PO ×2 (06:21→16:19)
[2021-01-30] MEDS: Sertraline 50 MG Tablet PO (06:21)
[2021-01-30] MEDS: Furosemide 20 MG Tablet PO ×2 (06:21→17:25)
[2021-01-30] MEDS: Pantoprazole Sodium 40 MG Tablet PO ×2 (06:21→17:25)
[2021-01-30] MEDS: Phenytoin Na 100 MG Capsule 200 MG PO ×2 (08:28→16:20)
[2021-01-30] MEDS: predniSONE 20 MG Tablet PO (08:29)
--- NOTE | 2021-01-30 11:37 | NURSING ---
Resident educated on the COVID-19 Vaccine and states he does not want to receive it.
[2021-01-30] MEDS: Ferrous Sulfate 325 MG Tablet PO ×2 (11:51→16:20)
--- NOTE | 2021-01-30 15:40 | PHA.CONS_ITS ---
Progress Note - Pharmacy Subjective: TCU Admission Objective: Allergies codeine Adverse Reaction (Verified 01/22/21 20:43) Nausea Current Medications Generic Name Dose Route Start Last Admin Trade Name Ashkan PRN Reason Stop Dose Admin Acetaminophen 1,000 mg 01/26/21 21:02 Acetaminophen 500 Mg Tablet PO Q6H PRN PRN Pain Score 1-10 Albuterol Sulfate 2.5 mg 01/26/21 19:21 Albuterol 2.5 Mg/3 Ml Vial.Neb. INHALATION Q2H PRN PRN dypsnea, wheezing Albuterol/Ipratropium 3 ml 01/26/21 22:00 01/30/21 11:31 Ipratropium/Albuterol Sulfate 3 Ml Ampul.Neb INHALATION 3 ml Q4H.RT MAX Administration Bisacodyl 10 mg 01/26/21 21:02 01/27/21 11:20 Bisacodyl 5 Mg Tablet PO 10 mg DAILY PRN Administration CONSTIPATION Ferrous Sulfate 325 mg 01/27/21 12:00 01/30/21 11:51 Ferrous Sulfate 325 Mg Tablet PO 325 mg 1200,1700 MAX Administration Furosemide 20 mg 01/26/21 19:30 01/30/21 06:21 Furosemide 20 Mg Tablet PO 20 mg BID MAX Administration Nutritional Formula (Lactose Free) 120 ml 01/26/21 22:00 01/30/21 11:51 Ensure Enlive 120 Ml Liquid PO 120 ml 4X/DAY MAX Administration Pantoprazole Sodium 40 mg 01/26/21 19:30 01/30/21 06:21 Pantoprazole Sodium 40 Mg Tablet PO 40 mg BID MAX Administration Phenytoin Sodium 200 mg 01/26/21 19:30 01/30/21 08:28 Phenytoin Na 100 Mg Capsule PO 200 mg BIDCM MAX Administration Polyethylene Glycol 17 gm 01/27/21 06:00 01/30/21 06:20 Polyethylene Glycol 3350 17 Gm Packet PO 17 gm DAILY MAX Administration Prednisone 50 mg 01/27/21 08:00 01/30/21 08:29 Prednisone 20 Mg Tablet PO 02/14/21 07:59 50 mg BREAKFAST MAX Administration Taper Senna/Docusate Sodium 1 tablet 01/27/21 06:00 01/30/21 06:21 Senna/Docusate Sodium 1 Tablet PO 1 tablet BID MAX Administration Sertraline HCl 50 mg 01/27/21 06:00 01/30/21 06:21 Sertraline 50 Mg Tablet PO 50 mg DAILY MAX Administration Tuberculin PPD 0.1 ml 02/03/21 10:00 Tuberculin,Purif.Prot.Deriv. 50 Tu/Ml Vial ID 02/03/21 10:01 X1 ONE Problem List (Last Reviewed 01/26/21 @ 20:[address] Nicolas Quezada MD) Hyperlipidemia (Acute) Hypertension (Chronic) Seizure disorder (Acute) Acute respiratory failure with hypoxia (Acute) Adult failure to thrive (Acute) COPD exacerbation (Chronic) Iron deficiency anemia (Acute) Debility (Acute) Vital Signs Temp Pulse Resp BP Pulse Ox 98.4 F 90 20 H 103/57 L 97 01/30/21 15:37 01/30/21 15:37 01/30/21 15:37 01/30/21 15:37 01/30/21 15:37 Oxygen Flow Rate (L/min) 3 Oxygen Delivery Method Nasal Cannula Weight: 56.444 kg Body Mass Index (BMI) 16.8 Sodium 140 mmol/L (136-145) 01/27/21 06:13 Potassium 4.4 mmol/L (3.5-5.1) 01/27/21 06:13 Chloride 97 mmol/L (98-107) L 01/27/21 06:13 Carbon Dioxide 43.0 mmol/L (21.0-32.0) H 01/27/21 06:13 Anion Gap 0 (5-15) L 01/27/21 06:13 BUN 23 mg/dL (7-18) H 01/27/21 06:13 Creatinine 0.52 mg/dL (0.70-1.30) L 01/27/21 06:13 Est GFR (MDRD) Af Amer 205 mL/min (>60) 01/27/21 06:13 Est GFR (MDRD) Non-Af 169 mL/min (>60) 01/27/21 06:13 BUN/Creatinine Ratio 44.0 RATIO (10-20) H 01/27/21 06:13 Glucose 107 mg/dL (74-106) H 01/27/21 06:13 Assessment/Plan: 1. Pain: acetaminophen 1000mg PO Q6H PRN pain 1-05/27. Please continue to monitor for increased pain and PRN usage. 2. COPD: ipratropium/albuterol 3mL inhalation Q4H.RT, albuterol 2.5mg inhalation Q2H PRN dyspnea/wheezing and prednisone taper thru 02/14/21. Please continue to monitor for PRN usage, WBC, blood sugars, and S/S of infection. 3. Iron deficiency anemia: ferrous sulfate 325mg PO BID. Please continue to monitor hemoglobin (last 8.3g/dL) and for dark stools. 4. Edema: furosemide 20mg PO BID. Please continue to monitor potassium (last 4.4mmol/L) and renal function. 5. Seizure disorder: phenytoin 200mg PO BIDCM. Last level WNL on 01/29/21. Please continue to monitor for falls, S/S of toxicity, GI side effects, and gingival hyperplasia. 6. GERD: pantoprazole 40mg PO BID. Please continue to monitor for S/S of GERD and diarrhea. Psychotropic Medications: 1. Depression: sertraline 50mg PO daily. Please see physician note regarding GDR. Please continue to monitor for GI side effects. Unnecessary Medications: None Bowel Regimen: Miralax 17gm PO daily, senna/docusate 1T PO BID and bisacodyl 10mg PO daily PRN constipation. Please continue to monitor for S/S of cons tipation and PRN usage. Date of Note:: 01/30/21
[2021-01-31] VITALS (8 sets, daily range): BP systolic 107–139; BP diastolic 62–73; PULSE 74–89; RESP 14–26; TEMP 36.2–36.5; O2SAT 97–100
[2021-01-31] MEDS: Ipratropium/Albuterol Sulfate 3 ML AMPUL.NEB INHALATION ×6 (02:17→22:58)
--- NOTE | 2021-01-31 02:34 | CPS ---
Pt. finds comfort in wearing 3L NC. I've talked to him in depth in regards to high SpO2 with his COPD (chronic retainer), but pt. adamantly wants the 3L flow.
[2021-01-31] MEDS: Senna/Docusate Sodium 1 Tablet PO ×2 (04:48→16:31)
[2021-01-31] MEDS: Polyethylene Glycol 3350 17 GM PACKET PO (04:48)
[2021-01-31] MEDS: Furosemide 20 MG Tablet PO ×2 (04:48→16:31)
[2021-01-31] MEDS: Pantoprazole Sodium 40 MG Tablet PO ×2 (04:48→16:31)
[2021-01-31] MEDS: Sertraline 50 MG Tablet PO (04:49)
[2021-01-31] MEDS: Phenytoin Na 100 MG Capsule 200 MG PO ×2 (08:48→16:31)
[2021-01-31] MEDS: predniSONE 20 MG Tablet PO (08:48)
[2021-01-31] MEDS: Ferrous Sulfate 325 MG Tablet PO ×2 (11:19→16:31)
--- NOTE | 2021-01-31 13:00 | CASEMGMT ---
Social Work Plan of care meeting held today. Patient present. Patient son present via speaker phone. Patient to continue with further care and treatment on the Transitional Care Unit. Patient with next insurance update due on 02/06/2021. Patient voices plan to transition to a residential intermediate after stay on the Transitional Care Unit. Patient reports to be unable to afford residential. This social science instructor provided patient with Medicaid application. Patient plans to complete medicaid application with patient son. This social science instructor also provided patient with list of local nursing homes to patient geographical region. Will continue to follow. Marti SUTHERLAND, LOWELL
--- NOTE | 2021-01-31 16:19 | CASEMGMT ---
Social Work Brief interview for mental status (BIMS) and resident mood interview (PHQ-9) completed on this day. Marti SUTHERLAND, CHIS
[2021-01-31] MEDS: Bisacodyl 5 MG Tablet 10 MG PO (16:31)
--- NOTE | 2021-01-31 16:57 | CHAPLAIN ---
Type of Pastoral Visit _x__ Initial Visit ___ Follow-up Visit ___ On-call Visit ___ General Patient Visit ___ Spiritual Assessment ___ Family Conference ___ Bereavement ___ Rapid Response ___ Code Blue ___ Other (describe below) Pastoral Care Referral From _x__ Patient ___ Family ___ Nurse ___ Physician ___ Construction Recruiter ___ Traveling Plant Operator _x__ Other (describe below) Sacrament/Intervention _x__ Active listening ___ Anointing ___ Adventist ___ Bereavement ___ Communion _x__ Nia exploration ___ ___ Life review _x__ Prayer ___ Reconciliation ___ Sacrament of Sick _x__ Supportive presence ___ Wedding ___ Other (describe below) Pastoral Comments patient refers to his time coming closer to an end and how he is thinking about the next life; pt open to discuss nia and review his nia heritage; pt open to prayer support and conversation with this optometrist/practice owner; pt expects his son and daughter to visit with him james and he is looking forward to that.
--- NOTE | 2021-01-31 23:28 | CPS ---
Patient did not want to wear BiPAP at this time. Will let staff know if he wants to wear BiPAP tonight.
[2021-02-01] VITALS (10 sets, daily range): BP systolic 88–111; BP diastolic 54–62; PULSE 83–93; RESP 18–22; TEMP 36.8–36.9; O2SAT 92–100
[2021-02-01] MEDS: Albuterol 2.5 MG/3 ML VIAL.NEB. INHALATION (04:06)
[2021-02-01] MEDS: Sertraline 50 MG Tablet PO (04:41)
[2021-02-01] MEDS: Pantoprazole Sodium 40 MG Tablet PO ×2 (04:41→17:18)
[2021-02-01] MEDS: Polyethylene Glycol 3350 17 GM PACKET PO (04:41)
[2021-02-01] MEDS: Furosemide 20 MG Tablet PO ×2 (04:41→17:18)
[2021-02-01] MEDS: Senna/Docusate Sodium 1 Tablet PO ×2 (04:41→17:23)
[2021-02-01] MEDS: Ipratropium/Albuterol Sulfate 3 ML AMPUL.NEB INHALATION ×3 (07:52→22:56)
[2021-02-01] MEDS: predniSONE 20 MG Tablet PO (08:12)
[2021-02-01] MEDS: Phenytoin Na 100 MG Capsule 200 MG PO ×2 (08:13→17:18)
[2021-02-01] MEDS: Ferrous Sulfate 325 MG Tablet PO ×2 (11:01→17:18)
--- NOTE | 2021-02-01 14:33 | MDS.RN ---
completed pain interview for YSABEL 02/02/21
--- NOTE | 2021-02-01 16:37 | CASEMGMT ---
Social Work Met with patient in room. Patient provided completed medicaid application to this social studies teacher. Medicaid application faxed to local job and family services. Patient reports to still be looking over list of SNF's. Patient plans to have choices picked out by 02/05/2021. Will continue to follow. Marti SUTHERLAND, LOWELL
[2021-02-02] VITALS (11 sets, daily range): BP systolic 111–127; BP diastolic 67–74; PULSE 77–95; RESP 16–25; TEMP 36.3; O2SAT 98–100
[2021-02-02] MEDS: Albuterol 2.5 MG/3 ML VIAL.NEB. INHALATION ×3 (01:44→16:10)
--- NOTE | 2021-02-02 02:09 | CPS ---
Patient has been non-compliant with BiPAP for multiple days. Does not want to wear it per patient. For this reason, BiPAP was pulled out of room by HUMAN RESOURCE PROFESSIONAL. RN aware. Will complete BiPAP order at this time and will observe patient.
[2021-02-02] MEDS: Senna/Docusate Sodium 1 Tablet PO ×2 (05:03→17:45)
[2021-02-02] MEDS: Furosemide 20 MG Tablet PO ×2 (05:03→17:45)
[2021-02-02] MEDS: Polyethylene Glycol 3350 17 GM PACKET PO (05:03)
[2021-02-02] MEDS: Sertraline 50 MG Tablet PO (05:03)
[2021-02-02] MEDS: Pantoprazole Sodium 40 MG Tablet PO ×2 (05:04→17:45)
[2021-02-02] MEDS: Ipratropium/Albuterol Sulfate 3 ML AMPUL.NEB INHALATION ×5 (06:50→19:26)
[2021-02-02] MEDS: predniSONE 20 MG Tablet PO (08:31)
[2021-02-02] MEDS: Phenytoin Na 100 MG Capsule 200 MG PO ×2 (08:32→17:45)
[2021-02-02] MEDS: Ferrous Sulfate 325 MG Tablet PO ×2 (12:30→17:45)
[2021-02-02] MEDS: MELATONIN 10 MG TABLET PO (21:52)
[2021-02-03] VITALS (9 sets, daily range): BP systolic 108–113; BP diastolic 61–67; PULSE 79–90; RESP 16–21; TEMP 36.3–36.7; O2SAT 95–98
[2021-02-03] MEDS: Ipratropium/Albuterol Sulfate 3 ML AMPUL.NEB INHALATION ×6 (03:36→22:50)
[2021-02-03] MEDS: Pantoprazole Sodium 40 MG Tablet PO ×2 (05:13→17:17)
[2021-02-03] MEDS: Furosemide 20 MG Tablet PO ×2 (05:13→17:17)
[2021-02-03] MEDS: Polyethylene Glycol 3350 17 GM PACKET PO (05:13)
[2021-02-03] MEDS: Senna/Docusate Sodium 1 Tablet PO ×2 (05:14→17:17)
[2021-02-03] MEDS: Sertraline 50 MG Tablet PO (05:14)
[2021-02-03 08:17] LABS: Absolute Lymphocyte Count 0.87 X10^3/uL (0.83-4.51); Absolute Neutrophil Count 4.2 X10^3/uL (2.0-7.7); Basophil# 0.04 X10^3/uL; Basophil% 0.7 % (0-1); Eosinophil# 0.16 X10^3/uL; Eosinophils% 2.7 % (0-5); Hemoglobin 8.4 g/dL (13.0-16.5); Lymphocyte # 0.87 X10^3/ul (0.83-4.51); Lymphocyte % 14.6 % (19-41); Mean Corpuscular Hgb 23.9 pg (27.0-32.0); Mean Corpuscular Volume 82.6 fL (80-94); Mean Platelet Vol. 10.3 fl (6.2-12.0); Monocyte# 0.64 X10^3/uL; Monocyte% 10.7 % (0-10); NRBC Flagged by Analyzer 0 % (0-5); Neutrophil # 4.24 X10^3/uL (2.7-7.7); POSITIVE MORPHOLOGY YES; Platelet Count 308 K/mm3 (150-450); RBC Distribution Width CV 23.5 % (11.6-14.6); RBC Distribution Width SD 65.3 fl (35.1-43.9); Red Blood Count 3.51 M/mm3 (4.6-6.2)
[2021-02-03 08:18] LABS: Differential Indicated SCAN CRITERIA MET
[2021-02-03 08:23] LABS: Anion Gap 0 (5-15); BUN 18 mg/dL (7-18); BUN/Creat Ratio 38.3 RATIO (10-20); Calcium,Total 8.6 mg/dL (8.5-10.1); Chloride 97 mmol/L (98-107); Creatinine, Serum 0.47 mg/dL (0.70-1.30); EST Glomerular Filtration Rate 192 mL/min (>60); Est Glom Filt Rate - Afr Amer 232 mL/min (>60); Estimated Creatinine Clearance 128.43 ml/min; Glucose 89 mg/dL (74-106); Potassium 3.8 mmol/L (3.5-5.1); Sodium Level 139 mmol/L (136-145)
[2021-02-03] MEDS: predniSONE 20 MG Tablet PO (08:25)
[2021-02-03] MEDS: Phenytoin Na 100 MG Capsule 200 MG PO ×2 (08:25→17:17)
[2021-02-03 09:56] LABS: Anisocytosis 2+; Differential Comment SCANNED; Hypochromasia 2+; Macrocytosis 1+; Microcytosis 1+
[2021-02-03] MEDS: Tuberculin,Purif.prot.deriv. 50 TU/ML Vial 0.1 ML ID (10:46)
[2021-02-03] MEDS: Ferrous Sulfate 325 MG Tablet PO ×2 (10:46→17:17)
[2021-02-03] MEDS: MELATONIN 10 MG TABLET PO (22:18)
[2021-02-04] VITALS (8 sets, daily range): BP systolic 95–108; BP diastolic 56–68; PULSE 76–89; RESP 16–22; TEMP 36.4–36.9; O2SAT 95–100
[2021-02-04] MEDS: Ipratropium/Albuterol Sulfate 3 ML AMPUL.NEB INHALATION ×5 (03:32→22:59)
[2021-02-04] MEDS: Polyethylene Glycol 3350 17 GM PACKET PO (07:00)
[2021-02-04] MEDS: Sertraline 50 MG Tablet PO (07:01)
[2021-02-04] MEDS: Furosemide 20 MG Tablet PO ×2 (07:01→16:41)
[2021-02-04] MEDS: Senna/Docusate Sodium 1 Tablet PO ×2 (07:01→16:41)
[2021-02-04] MEDS: Pantoprazole Sodium 40 MG Tablet PO ×2 (07:01→16:40)
[2021-02-04] MEDS: Phenytoin Na 100 MG Capsule 200 MG PO ×2 (08:28→16:41)
[2021-02-04] MEDS: predniSONE 20 MG Tablet PO (08:29)
[2021-02-04] MEDS: Ferrous Sulfate 325 MG Tablet PO ×2 (11:07→16:41)
--- NOTE | 2021-02-04 22:00 | NURSING ---
Pt refused to have this nurse remove NIKKY wraps to BLE.
[2021-02-04] MEDS: MELATONIN 10 MG TABLET PO (22:43)
[2021-02-05] VITALS (10 sets, daily range): BP systolic 117–121; BP diastolic 66–70; PULSE 78–92; RESP 14–28; TEMP 36.4–36.8; O2SAT 97–100
--- NOTE | 2021-02-05 02:54 | NURSING ---
RT called to administer a PRN aerosol for shortness of breath. Reports she will come to unit shortly.
[2021-02-05] MEDS: Ipratropium/Albuterol Sulfate 3 ML AMPUL.NEB INHALATION ×6 (03:00→23:04)
[2021-02-05] MEDS: Polyethylene Glycol 3350 17 GM PACKET PO (05:50)
[2021-02-05] MEDS: Sertraline 50 MG Tablet PO (05:51)
[2021-02-05] MEDS: Furosemide 20 MG Tablet PO ×2 (05:51→16:30)
[2021-02-05] MEDS: Senna/Docusate Sodium 1 Tablet PO ×2 (05:51→16:30)
[2021-02-05] MEDS: Pantoprazole Sodium 40 MG Tablet PO ×2 (05:51→16:30)
[2021-02-05 06:18] LABS: Phenytoin (Dilantin) Level 18.9 mL (10.0-20.0)
[2021-02-05] MEDS: predniSONE 20 MG Tablet PO (08:28)
[2021-02-05] MEDS: Phenytoin Na 100 MG Capsule 200 MG PO ×2 (08:29→16:30)
[2021-02-05] MEDS: Ferrous Sulfate 325 MG Tablet PO ×2 (11:29→16:30)
[2021-02-05] MEDS: Albuterol 2.5 MG/3 ML VIAL.NEB. INHALATION (13:50)
--- NOTE | 2021-02-05 15:28 | CASEMGMT ---
Social Work Met with patient in room. Patient reports first, second and third choice for half-way as: 1: [facility], 2: [facility], and 3: [facility]. Patient wishes to continue with stay on the TCU unit currently but is unable to return to home. Patient with insurance update due on 02/06/2021. Support provided. Telephone call to Lisseth PERALTA. Referral made. Patient current pending medicaid application. Clinical information faxed. Anticipate discharge under medicaid as payor source at time of discharge. This social media manager sent e-mail inquire to local [employer] to check status of Medicaid applications. Will continue to follow. No discharge date set at this time. Marti SUTHERLAND, CHIS
[2021-02-05] MEDS: MELATONIN 10 MG TABLET PO (21:17)
[2021-02-06] VITALS (7 sets, daily range): BP systolic 105–132; BP diastolic 65–74; PULSE 78–88; RESP 18–26; TEMP 36.8; O2SAT 98–100
[2021-02-06] MEDS: Ipratropium/Albuterol Sulfate 3 ML AMPUL.NEB INHALATION ×6 (03:12→22:29)
[2021-02-06] MEDS: Polyethylene Glycol 3350 17 GM PACKET PO (06:13)
[2021-02-06] MEDS: Sertraline 50 MG Tablet PO (06:13)
[2021-02-06] MEDS: Pantoprazole Sodium 40 MG Tablet PO ×2 (06:19→16:56)
[2021-02-06] MEDS: Senna/Docusate Sodium 1 Tablet PO ×2 (06:23→16:56)
[2021-02-06] MEDS: Furosemide 20 MG Tablet PO ×2 (06:24→16:56)
[2021-02-06] MEDS: Phenytoin Na 100 MG Capsule 200 MG PO ×2 (09:06→16:55)
[2021-02-06] MEDS: predniSONE 20 MG Tablet PO (09:06)
[2021-02-06] MEDS: Ferrous Sulfate 325 MG Tablet PO ×2 (11:55→16:56)
--- NOTE | 2021-02-06 14:23 | CASEMGMT ---
Social Work Met with patient in room. Continued stay has been denied by insurance. Last cover day issues for 02/08/2021 with patient financial responsibility to begin on 02/09/2021. Patient updated on above information. Patient signed Notice of Medicare Non-Coverage. Patient plans to transition to [facility] under medicaid pending at time of discharge. [facility] Voicemail left to inquire about current status of referral and to update on patient discharge date. E-mail received from [facility], Laura Harvey. Patient pending Medicaid number is [id number]. Transfer form initiated. Proposed discharge date: 02/09/2021 Will continue to follow. Marti SUTHERLAND, LOWELL
--- NOTE | 2021-02-06 17:07 | NURSING ---
Resident and son notified of resident testing positive for COVID.
--- NOTE | 2021-02-06 20:38 | DS.PCM_ITS ---
Providers Date of Admission: 01/26/21 Primary Care Physician: Dr. Tho Steen MD Reason For Visit: ANEMIA AND FTT Diagnosis Discharge Diagnosis (1) Debility: Status: Acute Code(s): R53.81 - Other malaise (2) Iron deficiency anemia: Status: Acute Code(s): D50.9 - Iron deficiency anemia, unspecified (3) COPD exacerbation: Status: Chronic Code(s): J44.1 - Chronic obstructive pulmonary disease with (acute) exacerbation (4) Adult failure to thrive: Status: Acute Code(s): R62.7 - Adult failure to thrive (5) Acute respiratory failure with hypoxia: Status: Acute Code(s): J96.01 - Acute respiratory failure with hypoxia (6) Seizure disorder: Status: Acute Code(s): G40.909 - Epilepsy, unspecified, not intractable, without status epilepticus (7) Hypertension: Status: Chronic Code(s): I10 - Essential (primary) hypertension (8) Hyperlipidemia: Status: Acute Code(s): E78.5 - Hyperlipidemia, unspecified Medications at Discharge Home Medications phenytoin sodium extended 200 mg PO BID 07/24/15 albuterol sulfate 2.5 mg INHALATION Q2H PRN PRN #180 ml 08/16/19 Ensure Enlive 120 ml PO 4X/DAY 01/26/21 ferrous sulfate [FeroSul] 325 mg PO 1200,1700 01/26/21 furosemide [Lasix] 20 mg PO BID 01/26/21 ipratropium-albuterol 3 ml INHALATION Q4H.RT 01/26/21 pantoprazole 40 mg PO BID 01/26/21 sertraline [Zoloft] 50 mg PO DAILY 01/26/21 acetaminophen 1,000 mg PO Q6H PRN PRN #0 tab 02/06/21 melatonin 10 mg PO QHS #0 tab 02/06/21 sodium chloride [Deep Sea Nasal] 2 spray NASAL TID PRN PRN #0 ml 02/06/21 Hospital Course Operations None Procedures None Summary of Care Provided Minutes Spent on Discharge: 35 Hospital Course: 65 year old male with below past medical history hospitalized for acute respiratory failure with hypoxia secondary to COPD exacerbation, complicated by iron deficiency anemia requiring 2 units PRBC transfusion, admitted to TCU with debility, here for rehabilitation, strengthening, prior to disposition determination. Discharge to [facility] 02/09/2021 Medicaid pending. Physical Exam Const alert and oriented x3 General Appearance: cooperative HEENT normocephalic Eyes PERRL and EOMs intact bilaterally Neck supple, no JVD and no carotid bruits Resp normal respiratory effort, normal air movement and clear to auscultation bilaterally Cardio regular rate and regular rhythm GI normal to inspection, nondistended, normoactive bowel sounds, non-tender and non-distended Extremity normal capillary refill General Extremity: Negative for edema Skin no rashes or lesions noted General Skin Exam: no breakdown Psych affect normal Appearance: appropriate Weight / BMI Weight Weight: 56.444 kg Body Mass Index (BMI) 16.8 ABG / Lab / Microbiology Data Result Diagrams: 02/03/21 07:54 02/03/21 07:54 D/C Instructions Discharge Diet: No restrictions Discharge Activity: Return to Normal Activity, May Shower and Use Walker Weight Bearing Status: Weight bearing as tolerated Call your doctor if you observe: Fever of 101 or Higher, Inability to urinate, Inability to have a bowel movement, Shortness of breath, Fainting spells, Chest pain and Uncontrolled pain Additional Instructions: Discharge to [facility] 02/09/2021 Medicaid pending. Meaningful Use Info Meaningful Use Diagnoses (Choose all that apply): None applicable Discharge Plan Admission Admit Date/Time: 01/26/21 18:51 Primary Reason for Your Visit: Debility Attending Provider: Nicolas Quezada Chi Primary Care Provider: Tho Steen Instructions Additional Instructions / Restrictions: Discharge to [facility] 02/09/2021 Medicaid pending. Discharge Orders/Prescriptions Prescriptions: New acetaminophen 500 mg Tablet 1,000 mg PO Q6H PRN PRN (Reason: Pain Score 1-10) Qty: 0 RF: 0 sodium chloride [Deep Sea Nasal] 0.65 % Aerosol,[place] 2 spray NASAL TID PRN PRN (Reason: NASAL DRYNESS) Qty: 0 RF: 0 melatonin 10 mg Tablet, Sublingual 10 mg PO QHS Qty: 0 RF: 0 Continued phenytoin sodium extended 100 MG capsule 200 mg PO BID RF: 0 ipratropium-albuterol 0.5 mg-3 mg(2.5 mg base)/3 mL solution for nebulization 3 ml inhalation Q4H.RT RF: 0 pantoprazole 40 mg tablet,delayed release (DR/EC) 40 mg PO BID RF: 0 ferrous sulfate [FeroSul] 325 mg (65 mg iron) tablet 325 mg PO 1200,1700 RF: 0 furosemide [Lasix] 20 mg tablet 20 mg PO BID RF: 0 sertraline [Zoloft] 50 mg tablet 50 mg PO DAILY RF: 0 Ensure Enlive 0.08 gram-1.5 kcal/mL liquid 120 ml PO 4X/DAY RF: 0 albuterol sulfate 2.5 mg /3 mL (0.083 %) solution for nebulization 2.5 mg inhalation Q2H PRN PRN (Reason: dypsnea, wheezing) Qty: 180 RF: 6 Discontinued prednisone 10 mg tablet See Taper mg PO DAILY RF: 0 docusate sodium [Colace] 100 mg capsule 100 mg PO BID RF: 0 Combivent Respimat 20-100 mcg/actuation mist 1 puff INHALATION Q6H RF: 0 Referrals / Follow Up: Tho Steen MD [Primary Care Provider] - Disposition Disposition (needs filled in before D/C Order can be placed): NonSkilled NH /Intermed Care
--- NOTE | 2021-02-06 20:44 | TREXTCAR_ITS ---
Diet 01/26/21 19:30 Diet: Regular - General Food consistency:: Regular Liquid Consistency:: Regular/Thin Diet Comments: ensure pudding or magic cup w/ lunch and dinner Routine Orders/Code Status Suppository Type: Dulcolax 10mg Suppository Frequency: Daily PRN Code Status: DNRCC-A (No intubation.) Therapies Weight Bearing: Weight bearing as tolerated Extremity Affected:: Bilateral Lower Problem/Diagnosis (1) Debility: Status: Acute (2) Iron deficiency anemia: Status: Acute (3) COPD exacerbation: Status: Chronic (4) Adult failure to thrive: Status: Acute (5) Acute respiratory failure with hypoxia: Status: Acute (6) Seizure disorder: Status: Acute (7) Hypertension: Status: Chronic (8) Hyperlipidemia: Status: Acute Allergies/Procedures Done in Hospital Allergies codeine Adverse Reaction (Verified 01/22/21 20:43) Nausea Procedures: None Type of Care/Length of Stay Estimated LOS: More Than 30 Days Type of Care Needed: Intermediate Rehab Potential: Fair Prognosis: Fair Additional Orders/Day of Discharge Additional Orders: Patient to continue to be followed by [facility]. Day of Discharge: 02/09/21 Dietary and Speech Recommendations Dietitian Recommendations/Changes: Will continue liberal regular diet with ensure pudding or magic cup w/ meals for increased nutrition if consumed. Will continue ensure enlive w/ medpass 4x/day Follow Up Care Please follow up with your Primary Care Physician in: 1 week. Discharge Plan Admission Admit Date/Time: 01/26/21 18:51 Primary Reason for Your Visit: Debility Attending Provider: Nicolas Quezada Chi Primary Care Provider: Tho Steen Instructions Additional Instructions / Restrictions: Discharge to [facility] 02/09/2021 Medicaid pending. Discharge Orders/Prescriptions Prescriptions: New acetaminophen 500 mg Tablet 1,000 mg PO Q6H PRN PRN (Reason: Pain Score 1-10) Qty: 0 RF: 0 sodium chloride [Deep Sea Nasal] 0.65 % Aerosol,[place] 2 spray NASAL TID PRN PRN (Reason: NASAL DRYNESS) Qty: 0 RF: 0 melatonin 10 mg Tablet, Sublingual 10 mg PO QHS Qty: 0 RF: 0 Continued phenytoin sodium extended 100 MG capsule 200 mg PO BID RF: 0 ipratropium-albuterol 0.5 mg-3 mg(2.5 mg base)/3 mL solution for nebulization 3 ml inhalation Q4H.RT RF: 0 pantoprazole 40 mg tablet,delayed release (DR/EC) 40 mg PO BID RF: 0 ferrous sulfate [FeroSul] 325 mg (65 mg iron) tablet 325 mg PO 1200,1700 RF: 0 furosemide [Lasix] 20 mg tablet 20 mg PO BID RF: 0 sertraline [Zoloft] 50 mg tablet 50 mg PO DAILY RF: 0 Ensure Enlive 0.08 gram-1.5 kcal/mL liquid 120 ml PO 4X/DAY RF: 0 albuterol sulfate 2.5 mg /3 mL (0.083 %) solution for nebulization 2.5 mg inhalation Q2H PRN PRN (Reason: dypsnea, wheezing) Qty: 180 RF: 6 Discontinued prednisone 10 mg tablet See Taper mg PO DAILY RF: 0 docusate sodium [Colace] 100 mg capsule 100 mg PO BID RF: 0 Combivent Respimat 20-100 mcg/actuation mist 1 puff INHALATION Q6H RF: 0 Referrals / Follow Up: Tho Steen MD [Primary Care Provider] - Disposition Disposition (needs filled in before D/C Order can be placed): NonSkilled NH/Intermed Care
[2021-02-06] MEDS: MELATONIN 10 MG TABLET PO (22:58)
[2021-02-07] VITALS (9 sets, daily range): BP systolic 95–107; BP diastolic 50–65; PULSE 65–91; RESP 18–24; TEMP 36.3–36.7; O2SAT 95–100
[2021-02-07] MEDS: Ipratropium/Albuterol Sulfate 3 ML AMPUL.NEB INHALATION ×6 (02:45→21:59)
[2021-02-07] MEDS: Pantoprazole Sodium 40 MG Tablet PO ×2 (05:45→18:15)
[2021-02-07] MEDS: Senna/Docusate Sodium 1 Tablet PO ×2 (05:45→18:15)
[2021-02-07] MEDS: Polyethylene Glycol 3350 17 GM PACKET PO (05:45)
[2021-02-07] MEDS: Sertraline 50 MG Tablet PO (05:45)
[2021-02-07] MEDS: Furosemide 20 MG Tablet PO ×2 (05:45→18:15)
[2021-02-07] MEDS: predniSONE 20 MG Tablet PO (08:46)
[2021-02-07] MEDS: Phenytoin Na 100 MG Capsule 200 MG PO ×2 (08:47→18:15)
[2021-02-07] MEDS: Ferrous Sulfate 325 MG Tablet PO ×2 (12:04→18:16)
--- NOTE | 2021-02-07 16:31 | CM.UR ---
Social Work SW spoke with Lisseth at [facility] and they are able to accept pt. [facility] financial office has spoke with pt son regarding patient liability and down payment. SW met with pt and explained the above. Pt interested in pt liability. SW provided [facility] phone number for pt to call and inquire about finances. Pt agreeable to discharge to [facility] on 02/09. PASSRR completed and Level of Care submitted. AJ Etienne
[2021-02-07] MEDS: MELATONIN 10 MG TABLET PO (22:24)
[2021-02-08] VITALS (10 sets, daily range): BP systolic 116; BP diastolic 61–74; PULSE 75–88; RESP 12–28; TEMP 36.4–36.5; O2SAT 97–100
[2021-02-08] MEDS: Ipratropium/Albuterol Sulfate 3 ML AMPUL.NEB INHALATION ×6 (02:30→22:10)
[2021-02-08] MEDS: Polyethylene Glycol 3350 17 GM PACKET PO (05:59)
[2021-02-08] MEDS: Pantoprazole Sodium 40 MG Tablet PO ×2 (06:00→16:54)
[2021-02-08] MEDS: Furosemide 20 MG Tablet PO ×2 (06:00→16:54)
[2021-02-08] MEDS: Sertraline 50 MG Tablet PO (06:00)
[2021-02-08] MEDS: Senna/Docusate Sodium 1 Tablet PO ×2 (06:00→16:54)
[2021-02-08] MEDS: predniSONE 20 MG Tablet PO (08:09)
[2021-02-08] MEDS: Phenytoin Na 100 MG Capsule 200 MG PO ×2 (08:09→16:59)
[2021-02-08] MEDS: ALPRAZolam 0.25 MG Tablet PO ×2 (08:58→22:31)
--- NOTE | 2021-02-08 08:59 | MDS.RN ---
Information for the mds was obtained from review of the clinical record, interview of resident, staff, and direct observation of resident's care.
[2021-02-08] MEDS: Ferrous Sulfate 325 MG Tablet PO ×2 (12:10→16:54)
--- NOTE | 2021-02-08 15:30 | CASEMGMT ---
Addendum entered by Valerie Grimm 02/08/21 16:00: Discharge instructions faxed to palliative medicine. [facility] notified of Palliative Referral. AJ Etienne Original Note: Social Work Level of Care obtained. SW spoke with Yvette at [facility] and she confirmed pt can be admitted on 02/09/21. Finance department at [facility] will work out payment plan with pt son for up front payment. AJ met with pt and pt son Cleve and informed of the above. They are both agreeable to discharge tomorrow. Orders faxed to [facility]. Transportation arranged with [facility] for [address] supervisor by wheelchair van. Pt, son, nursing and [facility] notified of discharge time. Plan: [facility] on 02/09/21 AJ Etienne
[2021-02-08] MEDS: Albuterol 2.5 MG/3 ML VIAL.NEB. INHALATION (16:00)
--- NOTE | 2021-02-08 16:01 | CASEMGMT ---
BIMS And PHQ9 interviews completed on this date for MDS assessment. AJ Etienne
[2021-02-08] MEDS: MELATONIN 10 MG TABLET PO (22:31)
[2021-02-09 04:04] VITALS: PULSE 76; RESP 24
[2021-02-09] MEDS: Albuterol 2.5 MG/3 ML VIAL.NEB. INHALATION (04:04)
[2021-02-09 05:00] VITALS: BP 109/68; PULSE 76; RESP 22; TEMP 36.3
[2021-02-09] MEDS: Furosemide 20 MG Tablet PO (06:23)
[2021-02-09] MEDS: Pantoprazole Sodium 40 MG Tablet PO (06:24)
[2021-02-09] MEDS: Senna/Docusate Sodium 1 Tablet PO (06:24)
[2021-02-09] MEDS: Sertraline 50 MG Tablet PO (06:24)
[2021-02-09 06:48] VITALS: PULSE 88; RESP 18; O2SAT 99
[2021-02-09] MEDS: Ipratropium/Albuterol Sulfate 3 ML AMPUL.NEB INHALATION ×2 (06:48→10:10)
[2021-02-09] MEDS: Phenytoin Na 100 MG Capsule 200 MG PO (08:03)
[2021-02-09] MEDS: predniSONE 20 MG Tablet PO (08:03)
[2021-02-09] MEDS: ALPRAZolam 0.25 MG Tablet PO (10:01)
[2021-02-09 10:15] VITALS: PULSE 89; RESP 26
[2021-02-09] MEDS: Ferrous Sulfate 325 MG Tablet PO (11:03)
[2021-02-09 11:16] VITALS: PULSE 82; RESP 20
== END 2021-02-09 11:32 | disposition intermediate care facility (04) | DRG 191 ==
PROVIDERS: Admitting Provider Family Medicine Geriatric Medicine; PCP Family Medicine; Visit Provider Family Medicine Geriatric Medicine
DX: J44.1 Chronic obstructive pulmonary disease with (acute) exacerbation (principal); J96.12 Chronic respiratory failure with hypercapnia; D50.9 Iron deficiency anemia, unspecified; K21.9 Gastro-esophageal reflux disease without esophagitis; G40.909 Epilepsy, unspecified, not intractable, without status epilepticus; F32.9 Major depressive disorder, single episode, unspecified; E78.5 Hyperlipidemia, unspecified; I10 Essential (primary) hypertension; Z79.899 Other long term (current) drug therapy; Z87.891 Personal history of nicotine dependence; R62.7 Adult failure to thrive
CPT/HCPCS: 36415; 80048; 80185; 85025; 87426; 87635; 94003; 94640; 97110; 97116; 97162; 97166; 97530; 97535; 97802; 99406; U0005; U0003

== ENCOUNTER → 2021-02-12 | Outpatient (REF) | payer MEDICARE, SELFPAY ==
[2021-01-29 14:57] VITALS: BMI 16.8
[2021-02-12 10:19] LABS: Hematocrit 31.1 % (40-54); Hemoglobin 9.1 g/dL (13.0-16.5); Mean Corp Hgb Conc 29.3 g/dL (32-36); Mean Corpuscular Hgb 25.3 pg (27.0-32.0); Mean Corpuscular Volume 86.6 fL (80-94); POSITIVE MORPHOLOGY YES; Platelet Count 280 K/mm3 (150-450); RBC Distribution Width CV 28.2 % (11.6-14.6); RBC Distribution Width SD 83.1 fl (35.1-43.9); Red Blood Count 3.59 M/mm3 (4.6-6.2); White Blood Count 4.4 K/mm3 (4.4-11.0)
[2021-02-12 10:23] LABS: Scan Indicated on CBC? Y/N YES- FLAGS NOTED
[2021-02-12 10:37] LABS: ALB/GLOB Ratio 1.1 RATIO (0.9-2.4); AST(SGOT) 24 U/L (15-37); Alanine Aminotransfer ALT/SGPT 33 U/L (16-61); Albumin, Serum 3.3 g/dL (3.2-5.0); Alkaline Phosphatase 65 U/L (45-117); Anion Gap 3 (5-15); BUN 12 mg/dL (7-18); BUN/Creat Ratio 21.2 RATIO (10-20); Calcium,Total 8.7 mg/dL (8.5-10.1); Chloride 98 mmol/L (98-107); Creatinine, Serum 0.56 mg/dL (0.70-1.30); EST Glomerular Filtration Rate 155 mL/min (>60); Est Glom Filt Rate - Afr Amer 187 mL/min (>60); Glucose 75 mg/dL (74-106); Potassium 3.9 mmol/L (3.5-5.1); Protein, Total 6.3 g/dL (6.4-8.2); Sodium Level 140 mmol/L (136-145)
== END | disposition home or self-care (01) ==
LOC: OLS.SW1020 05:00
PROVIDERS: PCP Family Medicine; Referring Provider Family Medicine; Visit Provider Family Medicine
DX: D64.9 Anemia, unspecified (principal); I10 Essential (primary) hypertension
CPT/HCPCS: 36415; 80053; 85027

== ENCOUNTER → 2021-02-20 | Outpatient (REF) | payer MEDICARE, SELFPAY ==
[2021-01-29 14:57] VITALS: BMI 16.8
[2021-02-20 07:28] LABS: ALB/GLOB Ratio 1.2 RATIO (0.9-2.4); AST(SGOT) 21 U/L (15-37); Alanine Aminotransfer ALT/SGPT 23 U/L (16-61); Albumin, Serum 3.6 g/dL (3.2-5.0); Alkaline Phosphatase 87 U/L (45-117); Anion Gap 4 (5-15); BUN 9 mg/dL (7-18); BUN/Creat Ratio 14.2 RATIO (10-20); Calcium,Total 8.8 mg/dL (8.5-10.1); Chloride 96 mmol/L (98-107); Creatinine, Serum 0.63 mg/dL (0.70-1.30); EST Glomerular Filtration Rate 136 mL/min (>60); Est Glom Filt Rate - Afr Amer 165 mL/min (>60); Globulin 3.1 g/dL (2.2-4.2); Glucose 71 mg/dL (74-106); Potassium 3.6 mmol/L (3.5-5.1); Protein, Total 6.7 g/dL (6.4-8.2); Sodium Level 139 mmol/L (136-145)
[2021-02-20 07:31] LABS: Hematocrit 36.5 % (40-54); Hemoglobin 10.5 g/dL (13.0-16.5); Mean Corp Hgb Conc 28.8 g/dL (32-36); Mean Corpuscular Hgb 25.4 pg (27.0-32.0); Mean Corpuscular Volume 88.4 fL (80-94); Mean Platelet Vol. 9.8 fl (6.2-12.0); POSITIVE MORPHOLOGY YES; Platelet Count 207 K/mm3 (150-450); RBC Distribution Width CV 28.2 % (11.6-14.6); Red Blood Count 4.13 M/mm3 (4.6-6.2); White Blood Count 4.1 K/mm3 (4.4-11.0)
[2021-02-20 07:35] LABS: Scan Indicated on CBC? Y/N YES- FLAGS NOTED
[2021-02-20 08:21] LABS: Differential Comment SCANNED
== END | disposition home or self-care (01) ==
LOC: OLS.SW1020 04:00
PROVIDERS: PCP Family Medicine; Visit Provider Family Medicine
DX: D64.9 Anemia, unspecified (principal); R53.83 Other fatigue; I10 Essential (primary) hypertension
CPT/HCPCS: 36415; 80053; 85027

== ENCOUNTER → 2021-02-27 05:00 | Outpatient (REF) | payer MEDICARE, SELFPAY ==
[2021-01-29 14:57] VITALS: BMI 16.8
[2021-02-27 07:46] LABS: Hematocrit 31.8 % (40-54); Hemoglobin 9.7 g/dL (13.0-16.5); Mean Corp Hgb Conc 30.5 g/dL (32-36); Mean Corpuscular Hgb 27.2 pg (27.0-32.0); Mean Corpuscular Volume 89.3 fL (80-94); Mean Platelet Vol. 9.8 fl (6.2-12.0); POSITIVE MORPHOLOGY YES; Platelet Count 168 K/mm3 (150-450); Red Blood Count 3.56 M/mm3 (4.6-6.2); White Blood Count 3.1 K/mm3 (4.4-11.0)
[2021-02-27 07:50] LABS: Scan Indicated on CBC? Y/N YES- FLAGS NOTED
[2021-02-27 08:19] LABS: ALB/GLOB Ratio 1.2 RATIO (0.9-2.4); AST(SGOT) 20 U/L (15-37); Alanine Aminotransfer ALT/SGPT 18 U/L (16-61); Albumin, Serum 3.2 g/dL (3.2-5.0); Alkaline Phosphatase 69 U/L (45-117); Anion Gap 3 (5-15); BUN 9 mg/dL (7-18); BUN/Creat Ratio 14.7 RATIO (10-20); Calcium,Total 8.4 mg/dL (8.5-10.1); Chloride 97 mmol/L (98-107); Creatinine, Serum 0.61 mg/dL (0.70-1.30); EST Glomerular Filtration Rate 141 mL/min (>60); Est Glom Filt Rate - Afr Amer 171 mL/min (>60); Globulin 2.7 g/dL (2.2-4.2); Glucose 71 mg/dL (74-106); Potassium 3.7 mmol/L (3.5-5.1); Protein, Total 5.9 g/dL (6.4-8.2); Sodium Level 138 mmol/L (136-145)
== END ==
LOC: OLS.SW300 05:00
PROVIDERS: PCP Family Medicine; Visit Provider Family Medicine
DX: I10 Essential (primary) hypertension (principal); D64.9 Anemia, unspecified; R53.83 Other fatigue
CPT/HCPCS: 36415; 80053; 85027

== ENCOUNTER → 2021-03-06 05:00 | Outpatient (REF) | payer MEDICARE, SELFPAY ==
[2021-01-29 14:57] VITALS: BMI 16.8
[2021-03-06 07:20] LABS: Hematocrit 32.4 % (40-54); Hemoglobin 9.9 g/dL (13.0-16.5); Mean Corp Hgb Conc 30.6 g/dL (32-36); Mean Corpuscular Hgb 27.7 pg (27.0-32.0); Mean Corpuscular Volume 90.5 fL (80-94); Mean Platelet Vol. 9.6 fl (6.2-12.0); POSITIVE MORPHOLOGY YES; Platelet Count 177 K/mm3 (150-450); Red Blood Count 3.58 M/mm3 (4.6-6.2); White Blood Count 3.3 K/mm3 (4.4-11.0)
[2021-03-06 07:50] LABS: ALB/GLOB Ratio 1.3 RATIO (0.9-2.4); AST(SGOT) 18 U/L (15-37); Alanine Aminotransfer ALT/SGPT 21 U/L (16-61); Albumin, Serum 3.2 g/dL (3.2-5.0); Alkaline Phosphatase 63 U/L (45-117); Anion Gap 4 (5-15); BUN 12 mg/dL (7-18); BUN/Creat Ratio 19.3 RATIO (10-20); Calcium,Total 8.1 mg/dL (8.5-10.1); Chloride 99 mmol/L (98-107); Creatinine, Serum 0.62 mg/dL (0.70-1.30); EST Glomerular Filtration Rate 139 mL/min (>60); Est Glom Filt Rate - Afr Amer 168 mL/min (>60); Globulin 2.5 g/dL (2.2-4.2); Glucose 69 mg/dL (74-106); Potassium 3.7 mmol/L (3.5-5.1); Protein, Total 5.7 g/dL (6.4-8.2); Sodium Level 140 mmol/L (136-145)
[2021-03-06 08:02] LABS: Scan Indicated on CBC? Y/N YES- FLAGS NOTED
== END ==
LOC: OLS.SW300 05:00
PROVIDERS: PCP Family Medicine; Visit Provider Family Medicine
DX: I10 Essential (primary) hypertension (principal); D64.9 Anemia, unspecified; R53.83 Other fatigue
CPT/HCPCS: 36415; 80053; 85027

== ENCOUNTER → 2021-03-12 04:00 | Outpatient (REF) | payer MEDICARE, SELFPAY ==
[2021-01-29 14:57] VITALS: BMI 16.8
[2021-03-12 08:28] LABS: Hematocrit 33.9 % (40-54); Hemoglobin 10.5 g/dL (13.0-16.5); Mean Corpuscular Hgb 28.3 pg (27.0-32.0); Mean Corpuscular Volume 91.4 fL (80-94); Mean Platelet Vol. 10.2 fl (6.2-12.0); POSITIVE MORPHOLOGY YES; Platelet Count 188 K/mm3 (150-450); Red Blood Count 3.71 M/mm3 (4.6-6.2); White Blood Count 3.9 K/mm3 (4.4-11.0)
[2021-03-12 09:00] LABS: Anion Gap 3 (5-15); BUN 14 mg/dL (7-18); BUN/Creat Ratio 24.8 RATIO (10-20); Calcium,Total 8.4 mg/dL (8.5-10.1); Chloride 101 mmol/L (98-107); Creatinine, Serum 0.56 mg/dL (0.70-1.30); EST Glomerular Filtration Rate 155 mL/min (>60); Est Glom Filt Rate - Afr Amer 188 mL/min (>60); Glucose 75 mg/dL (74-106); Potassium 3.7 mmol/L (3.5-5.1); Sodium Level 141 mmol/L (136-145)
[2021-03-12 09:09] LABS: Scan Indicated on CBC? Y/N YES- FLAGS NOTED
[2021-03-12 09:10] LABS: Differential Comment SCANNED
[2021-03-13 07:41] LABS: AST(SGOT) 22 U/L (15-37); Alanine Aminotransfer ALT/SGPT 23 U/L (16-61); Albumin, Serum 3.4 g/dL (3.2-5.0); Alkaline Phosphatase 63 U/L (45-117)
== END ==
LOC: OLS.SW300 04:00
PROVIDERS: PCP Family Medicine; Referring Provider Family Medicine; Visit Provider Family Medicine
DX: I10 Essential (primary) hypertension (principal); D64.9 Anemia, unspecified
CPT/HCPCS: 36415; 80048; 82040; 82247; 84075; 84450; 84460; 85027